=== PATIENT | female | born 1945 | race Caucasian/White ===

== ENCOUNTER 2018-06-03 09:00 | Day surgery (SDC) | payer MEDICARE, OTHER ==
[~2018-06-03 09:00] MED LIST: ALEN10 PO; ALEN70 PO; ALLO100; ALLO100 PO; ANAS1 PO; ANASTROZOLE; ASCO250CH PO; ASPI325; ASPI81CH PO; ATEN25 PO; ATEN50; CEFP50SU PO; CHOL10002 PO; CODACE30; CODACE30 PO; COLLAGEN C; DIAZ2 PO; DILT180; DILT180ER PO; DILT30 PO; DOCU100 PO; FERR325 PO; FISH1000 PO; FURO20 PO; FURO40; GEMF600 PO; GUAI200 PO; HYOS.125; HYOS.125 SL; LISI5 PO; MECL12.5 PO; METCAR500 PO; METO100 PO; METO5; METR500 PO; MONT10T PO; MONT4 PO; MORP15ER PO; MORP30ER PO; MORPHINE; MULVITMIND PO; OMEP10ER PO; OMEP20ER; OMEP20ER PO; ONDA4ODT MM; OXYC1L PO; OXYC5; PIRO10; POLY17UD PO; POTCHL10ER PO; POTCHL20ER; PSEU120ER PO; SENN187 PO; SPIR25 PO; Vitamin C100 M1 PO; [UNRECOGNIZED DRUG - OTHER]; [UNRECOGNIZED DRUG - REMARK]
== END 2018-06-03 10:55 | disposition home or self-care (01) ==
LOC: ORSCSDS 09:00
PROVIDERS: Ophthalmology
PROC: 08RK3JZ Replacement of Left Lens with Synthetic Substitute, Percutaneous Approach (ICD-10-PCS; principal; 2018-06-03 10:30)
DX: H25.12 Age-related nuclear cataract, left eye (principal); J44.9 Chronic obstructive pulmonary disease, unspecified; I10 Essential (primary) hypertension; I25.2 Old myocardial infarction; I25.10 Atherosclerotic heart disease of native coronary artery without angina pectoris; Z79.82 Long term (current) use of aspirin; Z79.899 Other long term (current) drug therapy; Z87.891 Personal history of nicotine dependence
CPT/HCPCS: J2250; J3010; J3301; J7040; V2632

== ENCOUNTER 2019-05-15 21:29 | Inpatient (IN) | payer MEDICARE, OTHER ==
[~2019-05-15] VITALS: Ht 152.4 cm; Wt 58.7 kg
[~2019-05-15 21:29] MED LIST changes: +ALBU3IS NEB; +ALBU90OI INH; +ANASTRAZOLE PO; +ATOR10 PO; +Aspirin EC81 MG PO; +BUDE6HFA INH; +CYAN500 PO; +Calcium 250+D1 EACH PO; +DIAZ10 PO; +DIPH50 PO; +Dentagel56 GM DT; +FISH OIL 1,0001 EAC1 PO; +FURO40 PO; +GABA100 PO; +GUAI600T33 PO; +Hair, Skin & N1 EACH PO; +LANOXIN62.5 MCG PO; +Lisinopril2.5 MG PO; +MAGOXI400 PO; +METO50 PO; +NORT25 PO; +Omeprazole20 M1 PO; +PYRI100 PO; +Primalev 5-3001 EACH PO; +TIOT18 INH; +VITAMIN D-32000 UNIT PO; +Zantac150 MG PO; +Zofran4 MG PO; +[UNRECOGNIZED DRUG - OTHER] TOP
[2019-05-15] MEDS ORDERED: Bumetanide2 MG PO (21:56)
[2019-05-15] MEDS ORDERED: BASAGLAR K100 UNIT/1 SC (21:59)
[2019-05-15] MEDS ORDERED: METCAR500 PO (22:00)
[2019-05-15] MEDS ORDERED: METF500C PO (22:00)
[2019-05-15] MEDS ORDERED: MORP30ER PO (22:01)
[2019-05-15] MEDS ORDERED: NARCAN4 MG (22:02)
[2019-05-15] MEDS ORDERED: NAPR500 PO (22:03)
[2019-05-15] MEDS ORDERED: STRIVERDI RESPIM4 GM INH (22:03)
[2019-05-15] MEDS ORDERED: OXYC5 PO (22:04)
[2019-05-15] MEDS ORDERED: ROPI.25 PO (22:06)
[2019-05-15 23:44] LABS: Digoxin (Lanoxin) 0.77 ug/mL (0.80-2.00)
[2019-05-16 05:21] LABS: Hematocrit 40.2 % (33.0-51.0); Hemoglobin 13.5 g/dL (11.5-16.0); Mean Corpuscular HGB 31.9 pg (26.0-34.0); Mean Corpuscular HGB Conc 33.6 g/dL (31.5-36.5); Mean Corpuscular Volume 95 fL (80-100); Mean Platelet Volume 10.8 fL (9.1-12.4); Platelet Count 230 K/mm3 (150-400); RDW Standard Deviation 45.4 fL (35.1-46.3); Red Blood Cell Count 4.23 M/mm3 (3.80-5.20); White Blood Cell Count 15.51 K/mm3 (4.00-11.30)
--- NOTE | 2019-05-16 05:29 | NUR ---
SHIFT SUMMARY NEW ADMIT THIS AM. AAOX4/NPO. DISCOMFORT CONTROLLED WITH 1MG IV DILAUDID Q2-3P. NAUSEA CONTROLLED WITH ZOFRAN X1 SINCE ADMISSION TO FLOOR, NO EMESIS. PT SBA UP TO RESTROOM. IVF PER ORDERS. SURGICAL CONSULT CALLED THIS AM. PT RESTING INTERMITTENTLY, NADN, CALL LIGHT IN REACH.
[2019-05-16 05:46] LABS: Alanine Aminotransfer (ALT/SGP 39 U/L (12-78); Albumin, Blood 3.1 g/dL (3.4-5.0); Albumin/Globulin Ratio 0.9 (0.8-1.8); Alk Phos 91 U/L (50-136); Anion Gap 5 mmol/L (6-16); Aspartate Aminotrans (AST/SGOT 20 U/L (12-37); Bilirubin, Total 0.8 mg/dL (0.1-1.0); Blood Urea Nitrogen 11 mg/dL (8-24); Bun/Creatinine Ratio 15.6 (12.0-20.0); CO2, Blood 30 mmol/L (21-32); Calcium, Blood 7.8 mg/dL (8.5-10.1); Chloride, Blood 104 mmol/L (98-108); Globulin, Blood 3.3 g/dL (2.2-4.0); Glomerular Filtration Rate >60 (60-); Glucose, Blood 113 mg/dL (70-99); Potassium, Blood 3.3 mmol/L (3.5-5.5); Sodium, Blood 139 mmol/L (136-145); Total Protein, Blood 6.4 g/dL (6.4-8.2)
--- NOTE | 2019-05-16 15:14 | NUR ---
PT TO DAY SURGERY AT THIS TIME
--- NOTE | 2019-05-16 18:03 | NUR ---
1800 FLAGYL ANTIBIOTIC SENT TO OR AT THIS TIME.
[2019-05-17 04:13] LABS: BASOPHILS ABSOLUTE AUTO 0.03 K/mm3 (0.00-0.23); BASOPHILS PERCENT AUTO 0 % (0-2); EOSINOPHILS PERCENT AUTO 0 % (0-6); Hematocrit 35.5 % (33.0-51.0); Hemoglobin 11.8 g/dL (11.5-16.0); IMMATURE GRAN ABSOLUTE AUTO 0.19 K/mm3 (0.00-0.10); IMMATURE GRAN PERCENT AUTO 1 % (0-1); LYMPHOCYTES ABSOLUTE AUTO 1.24 K/mm3 (0.84-5.20); LYMPHOCYTES PERCENT AUTO 6 % (21-46); MONOCYTES ABSOLUTE AUTO 1.51 K/mm3 (0.16-1.47); MONOCYTES PERCENT AUTO 7 % (4-13); Mean Corpuscular HGB 32.4 pg (26.0-34.0); Mean Corpuscular HGB Conc 33.2 g/dL (31.5-36.5); Mean Platelet Volume 10.6 fL (9.1-12.4); NEUTROPHILS PERCENT AUTO 86 % (41-73); Platelet Count 224 K/mm3 (150-400); RDW Coefficient Variation 13.2 % (11.7-14.2); RDW Standard Deviation 47.2 fL (35.1-46.3); Red Blood Cell Count 3.64 M/mm3 (3.80-5.20); White Blood Cell Count 21.17 K/mm3 (4.00-11.30)
[2019-05-17 04:14] LABS: Mean Corpuscular Volume 98 fL (80-100)
[2019-05-17 04:38] LABS: Alanine Aminotransfer (ALT/SGP 25 U/L (12-78); Albumin, Blood 2.2 g/dL (3.4-5.0); Albumin/Globulin Ratio 0.7 (0.8-1.8); Alk Phos 71 U/L (50-136); Anion Gap 7 mmol/L (6-16); Aspartate Aminotrans (AST/SGOT 17 U/L (12-37); Bilirubin, Total 0.3 mg/dL (0.1-1.0); Blood Urea Nitrogen 7 mg/dL (8-24); Bun/Creatinine Ratio 10.2 (12.0-20.0); CO2, Blood 28 mmol/L (21-32); Calcium, Blood 7.3 mg/dL (8.5-10.1); Chloride, Blood 108 mmol/L (98-108); Creatinine, Blood 0.69 mg/dL (0.40-1.00); Globulin, Blood 3.1 g/dL (2.2-4.0); Glomerular Filtration Rate >60 (60-); Glucose, Blood 193 mg/dL (70-99); Magnesium, Blood 2.1 mg/dL (1.6-2.4); Potassium, Blood 3.8 mmol/L (3.5-5.5); Sodium, Blood 143 mmol/L (136-145); Total Protein, Blood 5.3 g/dL (6.4-8.2)
--- NOTE | 2019-05-17 05:52 | NUR ---
SHIFT SUMMARY PT A&O X4 T/O SHIFT. PT TO ROOM FROM RECOVERY IN ICU APPROX. 2145. PT AT BEDSIDE UNTIL PT SETTELED. POD#1 APPENDECTOMY; ABD SOFT; BT X4; MARCO DRAIN DRAINED 80ML OVER SHIFT. CHRONIC AND ACUTE PAIN MANAGED PER EMAR. PT C/O NAUSEA, TX PER EMAR, NO EMESIS. 4L O2 VIA NC. VSS; NO ACUTE CHANGES. BLOOD GLUCOSE MANAGED PER ORDERS; PT DECLINED INSULIN. IV GTT PER EMAR. FOELY DRAINING WELL. ORAL SWABS AT BEDSIDE. CALL LIGHT IN REACH; PT DEMONSTRATES USE. WCTM UNTIL REPORT TO DAY SHIFT RN.
--- NOTE | 2019-05-17 18:36 | NUR ---
SUMMARY: PT IS POD1 OPEN APPY. NO ACUTE CHANGE TODAY, PT HAS BEEN SLEEPING ON AND OFF. AND IS WEAK WHEN TURNING. ABLE TO DANGLE AND STAND TONIGHT WITH 1 ASSIST. VSS, ABLE TO WEAN O2 TO 2L, WILL MONITOR. PT ADVANCED TO CLEAR LIQ DIET, HAS TAKEN IN SMALL AMOUNTS OF WATER AND JELLO TODAY, HAS DENIED N/V. 80ML EMPTIED FROM MARCO DRAIN, RANDLE DRAINING. PT GIVEN OXYCODON AND DILAUDID FOR ABD PAIN, SEE EMAR. SURGICAL SITES WNL. PT AT BEDSIDE, WILL CTM AND REPORT TO NOC ISAAC.
--- NOTE | 2019-05-17 19:08 | NUR ---
REASSESSMENT OF PT HR AND SPO2 AT 1852. 95% ON 2L, BP 123/57, HR 126. PT IS RESTING QUIETLY. DR. AMES MADE AWARE OF PT HR. ORDER TO GIVE 2100 DOSE OF 50MG METOPROLOL NOW. STAT CBC AND EKG ALSO ORDERED. PT IS A/O, ASYMPTOMATIC. METOPROLOL GIVEN AND LAB IN ROOM TO DRAW AT 1859. Corey BARONE RN TO OBTAIN EKG. WILL PASS THIS INFO ON TO DASH OSCAR RN.
[2019-05-17 19:13] LABS: BASOPHILS ABSOLUTE AUTO 0.05 K/mm3 (0.00-0.23); BASOPHILS PERCENT AUTO 0 % (0-2); EOSINOPHILS ABSOLUTE AUTO 0.04 K/mm3 (0.00-0.68); EOSINOPHILS PERCENT AUTO 0 % (0-6); Hematocrit 34.9 % (33.0-51.0); Hemoglobin 11.5 g/dL (11.5-16.0); IMMATURE GRAN ABSOLUTE AUTO 0.16 K/mm3 (0.00-0.10); IMMATURE GRAN PERCENT AUTO 1 % (0-1); LYMPHOCYTES ABSOLUTE AUTO 1.47 K/mm3 (0.84-5.20); LYMPHOCYTES PERCENT AUTO 9 % (21-46); MONOCYTES ABSOLUTE AUTO 1.68 K/mm3 (0.16-1.47); MONOCYTES PERCENT AUTO 10 % (4-13); Mean Corpuscular HGB 32.4 pg (26.0-34.0); Mean Corpuscular Volume 98 fL (80-100); Mean Platelet Volume 10.5 fL (9.1-12.4); NEUTROPHILS ABSOLUTE AUTO 13.28 K/mm3 (1.96-9.15); NEUTROPHILS PERCENT AUTO 80 % (41-73); Platelet Count 217 K/mm3 (150-400); RDW Coefficient Variation 13.4 % (11.7-14.2); RDW Standard Deviation 48.3 fL (35.1-46.3); Red Blood Cell Count 3.55 M/mm3 (3.80-5.20); White Blood Cell Count 16.68 K/mm3 (4.00-11.30)
[2019-05-18 04:33] LABS: BASOPHILS ABSOLUTE AUTO 0.04 K/mm3 (0.00-0.23); BASOPHILS PERCENT AUTO 0 % (0-2); EOSINOPHILS ABSOLUTE AUTO 0.06 K/mm3 (0.00-0.68); EOSINOPHILS PERCENT AUTO 0 % (0-6); Hematocrit 33.4 % (33.0-51.0); IMMATURE GRAN ABSOLUTE AUTO 0.12 K/mm3 (0.00-0.10); IMMATURE GRAN PERCENT AUTO 1 % (0-1); LYMPHOCYTES ABSOLUTE AUTO 2.14 K/mm3 (0.84-5.20); LYMPHOCYTES PERCENT AUTO 14 % (21-46); MONOCYTES ABSOLUTE AUTO 1.48 K/mm3 (0.16-1.47); MONOCYTES PERCENT AUTO 10 % (4-13); Mean Corpuscular HGB 32.2 pg (26.0-34.0); Mean Corpuscular HGB Conc 32.9 g/dL (31.5-36.5); Mean Corpuscular Volume 98 fL (80-100); Mean Platelet Volume 10.6 fL (9.1-12.4); NEUTROPHILS ABSOLUTE AUTO 11.04 K/mm3 (1.96-9.15); NEUTROPHILS PERCENT AUTO 74 % (41-73); Platelet Count 220 K/mm3 (150-400); RDW Coefficient Variation 13.3 % (11.7-14.2); RDW Standard Deviation 47.8 fL (35.1-46.3); Red Blood Cell Count 3.42 M/mm3 (3.80-5.20); White Blood Cell Count 14.88 K/mm3 (4.00-11.30)
[2019-05-18 04:54] LABS: Alanine Aminotransfer (ALT/SGP 24 U/L (12-78); Albumin, Blood 2.1 g/dL (3.4-5.0); Albumin/Globulin Ratio 0.7 (0.8-1.8); Alk Phos 73 U/L (50-136); Anion Gap 3 mmol/L (6-16); Aspartate Aminotrans (AST/SGOT 14 U/L (12-37); Bilirubin, Total 0.5 mg/dL (0.1-1.0); Blood Urea Nitrogen 7 mg/dL (8-24); Bun/Creatinine Ratio 10.6 (12.0-20.0); CO2, Blood 28 mmol/L (21-32); Calcium, Blood 7.3 mg/dL (8.5-10.1); Chloride, Blood 109 mmol/L (98-108); Creatinine, Blood 0.66 mg/dL (0.40-1.00); Globulin, Blood 3.2 g/dL (2.2-4.0); Glomerular Filtration Rate >60 (60-); Glucose, Blood 109 mg/dL (70-99); Potassium, Blood 3.6 mmol/L (3.5-5.5); Sodium, Blood 140 mmol/L (136-145); Total Protein, Blood 5.3 g/dL (6.4-8.2)
--- NOTE | 2019-05-18 05:56 | NUR ---
SHIFT SUMMARY PT A&O X4 T/O SHIFT. POD#2 OPEN/LAP APPENDECTOMY; ABD SOFT; FEW BT X4; PT DENIES FLATUS. LAP SITES CDI; PREVENA WOUND VAC TO RLQ DRESSING AND SEAL INTACT. ABD MARCO DRAIN BULB COMPRESSED WITH SEAL HOLDING, DRESSING AROUND DRAIN REINFORCED D/T DRAINAGE. ACUTE AND CHRONIC PAIN MANAGED PER EMAR. OCC NAUSEA MANAGED PER EMAR. RANDLE DRAINING WELL. 2L O2 VIA NC. VSS; NO ACUTE CHANGES. CALL LIGHT IN REACH; PT DEMONSTRATES USE. WCTM UNTIL REPORT TO DAY SHIFT RN.
--- NOTE | 2019-05-18 12:46 | NUR ---
PT MEDICATED WITH ZOFRAN AND DILAUDID. FLAGYL STARTED PER EMAR. CALL LIGHT IN REACH.
--- NOTE | 2019-05-18 14:49 | NUR ---
DRESSING TO LLQ CHANGED. MULT SATURATED 4X4S REMOVED. NEW GAUZE AND MEDIPORE TAPE PLACED. PT SITTING UP IN CHAIR PLAYING SOLITAIRE,
--- NOTE | 2019-05-18 18:29 | NUR ---
SUMMARY: PT IS POD2 OPEN APPY. NO ACUTE CHANGE TODAY. PT REPORTS FEELING BETTER. ABLE TO AMBULATE IN ROOM AND SIT UP IN CHAIR FOR MEALS, PT IS DECONDITIONED AND WEAK, HAS CHRONIC PAIN. TOLERATING CLEAR LIQ DIET, SOME INTERMITTANT NAUSEA, NO EMESIS. 45ML DRAINED FROM MARCO DRAIN, DRESSING AT MARCO SITE CHANGED. RANDLE DC'D AT ABOUT 1300, PT VOIDED WITH BLADDER SCAN RESIDUAL OF 15ML. WILL MONITOR. SURGICAL SITES WNL. PT DENIES PASSING GAS, BOWEL TONES ASCULTATED. PT MEDICATED FOR PAIN PER EMAR.. NO ACUTE SAFETY CONCERNS AT THIS TIME.
[2019-05-19 04:34] LABS: BASOPHILS ABSOLUTE AUTO 0.05 K/mm3 (0.00-0.23); BASOPHILS PERCENT AUTO 0 % (0-2); EOSINOPHILS ABSOLUTE AUTO 0.48 K/mm3 (0.00-0.68); EOSINOPHILS PERCENT AUTO 4 % (0-6); Hematocrit 32.5 % (33.0-51.0); Hemoglobin 10.5 g/dL (11.5-16.0); IMMATURE GRAN PERCENT AUTO 2 % (0-1); LYMPHOCYTES ABSOLUTE AUTO 1.93 K/mm3 (0.84-5.20); LYMPHOCYTES PERCENT AUTO 17 % (21-46); MONOCYTES ABSOLUTE AUTO 1.32 K/mm3 (0.16-1.47); MONOCYTES PERCENT AUTO 12 % (4-13); Mean Corpuscular HGB 31.3 pg (26.0-34.0); Mean Corpuscular HGB Conc 32.3 g/dL (31.5-36.5); Mean Corpuscular Volume 97 fL (80-100); Mean Platelet Volume 10.7 fL (9.1-12.4); NEUTROPHILS ABSOLUTE AUTO 7.37 K/mm3 (1.96-9.15); NEUTROPHILS PERCENT AUTO 65 % (41-73); Platelet Count 226 K/mm3 (150-400); RDW Standard Deviation 46.1 fL (35.1-46.3); Red Blood Cell Count 3.35 M/mm3 (3.80-5.20); White Blood Cell Count 11.35 K/mm3 (4.00-11.30)
[2019-05-19 05:03] LABS: Alanine Aminotransfer (ALT/SGP 18 U/L (12-78); Albumin/Globulin Ratio 0.6 (0.8-1.8); Alk Phos 71 U/L (50-136); Anion Gap 5 mmol/L (6-16); Aspartate Aminotrans (AST/SGOT 11 U/L (12-37); Bilirubin, Total 0.3 mg/dL (0.1-1.0); Blood Urea Nitrogen 7 mg/dL (8-24); Bun/Creatinine Ratio 10.7 (12.0-20.0); CO2, Blood 27 mmol/L (21-32); Calcium, Blood 7.6 mg/dL (8.5-10.1); Chloride, Blood 108 mmol/L (98-108); Creatinine, Blood 0.66 mg/dL (0.40-1.00); Globulin, Blood 3.1 g/dL (2.2-4.0); Glomerular Filtration Rate >60 (60-); Glucose, Blood 124 mg/dL (70-99); Potassium, Blood 3.4 mmol/L (3.5-5.5); Sodium, Blood 140 mmol/L (136-145); Total Protein, Blood 5.1 g/dL (6.4-8.2)
--- NOTE | 2019-05-19 06:33 | NUR ---
POD 3 S/P OPEN APPY. PT VSS T/O NIGHT; 2LO2 NC IN PLACE PER PT BASELINE. DRESSINGS CDI. MARCO PUTTING OUT LIGHT PINK SS DRNG. PAIN MGD PER EMAR. PT HAD NO C/O N/V, REP NO FLATUS YET. PT UP OOB W/FWW+SBA, BLANCA WELL. PT USING CALL LIGHT FOR ASSISTANCE, WILL CONT TO MONITOR UNTIL REP GIVEN TO ONCOMING RN.
--- NOTE | 2019-05-19 08:03 | NUR ---
pt sleeping wakes to verbal stimuli stated she is sleepy denies flatus no nausea at this time mild abd dist discussed with pt taking miralax along with am [facility] and [facility] mobilization
--- NOTE | 2019-05-19 09:05 | NUR ---
DR DEGROOT BY TO SEE PT
--- NOTE | 2019-05-19 11:44 | NUR ---
MEDS GIVEN PT REQ IV PAIN MEDS VS PO STATED PAIN IS 8/10 AFTER AMB IN HALLWAY ALSO REQ IV ZOFRAN FOR NAUSEA NO EMESIS
--- NOTE | 2019-05-19 13:14 | NUR ---
pt amb in [facility] emptied arnulfo and changed arnulfo dressing
--- NOTE | 2019-05-19 15:31 | NUR ---
power glide placed by internetworking technician pt germain well
--- NOTE | 2019-05-19 17:41 | NUR ---
PT SITTING UP IN CHAIR WATCHING A MOVIE WITH HER S/O EATING ICE CHIPS
--- NOTE | 2019-05-19 18:10 | NUR ---
pt back from her walk in the hallway still no flatus to small amts of cl diet
--- NOTE | 2019-05-20 06:49 | NUR ---
POD 5 S/P OPEN APPY. PT VSS T/O NIGHT, 2LNC IN [place] PER PT BASELINE. PAIN MGD PER EMAR W/REP RELIEF. PO INTAKE MINIMAL, PT HAD NO C/O N/V, REP NO FLATUS YET. DRESSINGS INTACT, PT DOES HAVE SMALL, RED OPEN AREA IN PANNUS FOLD BENEATH DRESSING, BACITRACIN OINTMENT PROVIDED PER PT REQ. MARCO PUTTING OUT LIGHT PINK SS DRNG. PT VOIDING URINE W/O DIFFICULTY. PT UP OOB W/FWW+SBA, BLANCA WELL, IS USING CALL LIGHT FOR ASSISTANCE, WILL CONT TO MONITOR UNTIL REP GIVEN TO ONCOMING RN.
[2019-05-20 10:20] LABS: BASOPHILS ABSOLUTE AUTO 0.06 K/mm3 (0.00-0.23); BASOPHILS PERCENT AUTO 1 % (0-2); EOSINOPHILS ABSOLUTE AUTO 0.55 K/mm3 (0.00-0.68); EOSINOPHILS PERCENT AUTO 5 % (0-6); Hematocrit 34.7 % (33.0-51.0); Hemoglobin 11.5 g/dL (11.5-16.0); IMMATURE GRAN ABSOLUTE AUTO 0.26 K/mm3 (0.00-0.10); IMMATURE GRAN PERCENT AUTO 2 % (0-1); LYMPHOCYTES ABSOLUTE AUTO 1.49 K/mm3 (0.84-5.20); LYMPHOCYTES PERCENT AUTO 14 % (21-46); MONOCYTES ABSOLUTE AUTO 1.06 K/mm3 (0.16-1.47); MONOCYTES PERCENT AUTO 10 % (4-13); Mean Corpuscular HGB 31.9 pg (26.0-34.0); Mean Corpuscular HGB Conc 33.1 g/dL (31.5-36.5); Mean Corpuscular Volume 96 fL (80-100); NEUTROPHILS ABSOLUTE AUTO 7.65 K/mm3 (1.96-9.15); NEUTROPHILS PERCENT AUTO 69 % (41-73); Platelet Count 331 K/mm3 (150-400); RDW Coefficient Variation 13.2 % (11.7-14.2); RDW Standard Deviation 46.7 fL (35.1-46.3); Red Blood Cell Count 3.61 M/mm3 (3.80-5.20); White Blood Cell Count 11.07 K/mm3 (4.00-11.30)
[2019-05-20 10:37] LABS: Anion Gap 5 mmol/L (6-16); Blood Urea Nitrogen 6 mg/dL (8-24); Bun/Creatinine Ratio 9.8 (12.0-20.0); CO2, Blood 28 mmol/L (21-32); Calcium, Blood 8.6 mg/dL (8.5-10.1); Chloride, Blood 109 mmol/L (98-108); Creatinine, Blood 0.61 mg/dL (0.40-1.00); Glomerular Filtration Rate >60 (60-); Glucose, Blood 147 mg/dL (70-99); Magnesium, Blood 2.2 mg/dL (1.6-2.4); Potassium, Blood 3.7 mmol/L (3.5-5.5); Sodium, Blood 142 mmol/L (136-145)
--- NOTE | 2019-05-20 19:39 | NUR ---
SHIFT SUMMARY PT A&OX4, VSS, 2LNC BASELINE. POWERGLIDE RUE FLUSHES AND DRAWS WELL; ABX INFUSED ORDERED PER EMAR. CBGS CNI. POD4 OPEN APPY, ABD MOD DISTENDED, DENIES FLATUS. PREVENA AND MARCO DRAIN WITH MIN SEROUS FLUID AT THIS TIME. PAIN MANAGED PER EMAR. LOW PO CLEAR LIQ INTAKE; N&V TX W/ZOFRAN 1X. AMB W/FWW & SBA TO BR AND HALLWAY SEVERAL TIMES TODAY. REPORT GIVEN TO EVELYN GRAY.
[2019-05-21 05:21] LABS: BASOPHILS ABSOLUTE AUTO 0.03 K/mm3 (0.00-0.23); BASOPHILS PERCENT AUTO 0 % (0-2); EOSINOPHILS ABSOLUTE AUTO 0.42 K/mm3 (0.00-0.68); EOSINOPHILS PERCENT AUTO 5 % (0-6); Hematocrit 29.7 % (33.0-51.0); Hemoglobin 9.9 g/dL (11.5-16.0); IMMATURE GRAN ABSOLUTE AUTO 0.22 K/mm3 (0.00-0.10); IMMATURE GRAN PERCENT AUTO 3 % (0-1); LYMPHOCYTES ABSOLUTE AUTO 1.66 K/mm3 (0.84-5.20); LYMPHOCYTES PERCENT AUTO 21 % (21-46); MONOCYTES ABSOLUTE AUTO 0.96 K/mm3 (0.16-1.47); MONOCYTES PERCENT AUTO 12 % (4-13); Mean Corpuscular HGB 31.9 pg (26.0-34.0); Mean Corpuscular HGB Conc 33.3 g/dL (31.5-36.5); Mean Corpuscular Volume 96 fL (80-100); Mean Platelet Volume 9.7 fL (9.1-12.4); NEUTROPHILS PERCENT AUTO 58 % (41-73); Platelet Count 269 K/mm3 (150-400); RDW Coefficient Variation 13.1 % (11.7-14.2); RDW Standard Deviation 45.1 fL (35.1-46.3); White Blood Cell Count 7.79 K/mm3 (4.00-11.30)
[2019-05-21 05:50] LABS: Alanine Aminotransfer (ALT/SGP 19 U/L (12-78); Albumin/Globulin Ratio 0.7 (0.8-1.8); Alk Phos 65 U/L (50-136); Anion Gap 6 mmol/L (6-16); Aspartate Aminotrans (AST/SGOT 17 U/L (12-37); Bilirubin, Total 0.3 mg/dL (0.1-1.0); Blood Urea Nitrogen 6 mg/dL (8-24); Bun/Creatinine Ratio 9.3 (12.0-20.0); CO2, Blood 27 mmol/L (21-32); Calcium, Blood 8.3 mg/dL (8.5-10.1); Chloride, Blood 110 mmol/L (98-108); Creatinine, Blood 0.65 mg/dL (0.40-1.00); Glomerular Filtration Rate >60 (60-); Glucose, Blood 110 mg/dL (70-99); Potassium, Blood 3.6 mmol/L (3.5-5.5); Sodium, Blood 143 mmol/L (136-145)
--- NOTE | 2019-05-21 06:13 | NUR ---
POD 5 S/P OPEN APPY. PT VSS T/O NIGHT. DRESSINGS CDI. MARCO DRESSING CHANGED X1 R/T SATURATION; DRAINING LIGHT PINK/STRAW YELLOW SS DRNG. ABD MORE FIRM/DISTENDED, PT HAD 1 EPISODE OF NAUSEA, NO EMESIS, NO FLATUS YET. PT REP FEELING MORE TIRED AND WORN OUT. PT USING CALL LIGHT FOR ASSISTANCE, WILL CONT TO MONITOR UNTIL REP GIVEN TO ONCOMING RN.
--- NOTE | 2019-05-21 17:29 | NUR ---
SHIFT SUMMARY PT A&OX3, VSS, 2L NC @ BASELINE, POD5 OPEN APPY W/PREVENA, DENIES FLATUS, MARCO LG SEROUS OUTPUT DRESSING CHANGED 2X TODAY. PAIN MANAGED PER EMAR. REP SOME NAUSEA, DENIES EMESIS, NOT BLANCA CL DIET; PPN WILL BE STARTED TODAY. AMB SBA W/FWW TO BRP AND HALLWAY, UP TO CHAIR T/O SHIFT. VOIDING WELL. POWERGLIDE RUE. CBG CNI. AT BEDSIDE. WCTM & TX PER EMAR UNTIL REPORT GIVEN TO ONCOMING NOC RN.
[2019-05-22 08:35] LABS: Magnesium, Blood 2.2 mg/dL (1.6-2.4); Phosphorus, Blood 4.2 mg/dL (2.5-4.9); Triglycerides 214 mg/dL (30-160)
--- NOTE | 2019-05-22 18:26 | NUR ---
SHIFT SUMMARY PAIN HAS BEEN MANAGED WITH PO PAIN MEDICATION THIS SHIFT. PT HAS WALKED FREQUENTLY IN THE HALLWAYS. PT DENIES PASSING FLATUS. HYPOACTIVE BOWEL SOUNDS. PT TOLERATING MINIMAL CLEAR LIQUIDS. PT HAS SOME NAUSEA, ESPECIALLY WHEN TALKING ABOUT FOOD OR WHEN TRAYS ARE BROUGHT TO THE ROOM. VSS. WILL MONITOR UNTIL REPORT TO ONCOMING RN.
[2019-05-23 07:12] LABS: Magnesium, Blood 2.5 mg/dL (1.6-2.4); Phosphorus, Blood 4.9 mg/dL (2.5-4.9)
--- NOTE | 2019-05-23 08:02 | NUR ---
SUMMARY PT UP IN HALLS WITH THIS AM. NO FLATUS REPORTED TO ME. ABD REMAINS DISTENDED.TOLERATING H2O PO.
--- NOTE | 2019-05-23 18:51 | NUR ---
SHIFT SUMMARY PAIN HAS BEEN MANAGED WITH PO PAIN MEDICATION THIS SHIFT. SHE HAS AMBLATED MULTIPLE TIMES IN THE HALWAYS TODAY. PT CONTINUES TO HAVE GOOD BOWEL SOUNDS ALL QUADRANTS. PT STILL DENIES PASSING FLATUS. SHE HAS HAD SOME ABDOMINAL CRAMPING THIS AFTERNOON. VSS. WILL MONITOR UNTIL REPORT TO ONCOMING RN.
--- NOTE | 2019-05-24 02:34 | NUR ---
PT AMBULATORY. NO REPORTED FLATUS YET. BTS TYMPANIC. DENIES NAUSEA. ABD CONT WITH DISTENTION. DAY RN REPORTED DRS NOT WANTING TO START PT ON REGLAN OR OTHER CHANGES AT THIS TIME.
--- NOTE | 2019-05-24 03:32 | NUR ---
ASSUMED CARE OF PT. PT BACK TO BED AFTER AMBULATING TO BR. DENIES ANY NEEDS.
--- NOTE | 2019-05-24 04:54 | NUR ---
POD 8 S/P APPENDECTOMY. PT STILL DENIES FLATUS. HAS BEEN UP AMBULATING IN ROOM DURING NIGHT. BT HAVE BEEN HYPERACTIVE. MARCO WITH MINIMAL DRAINAGE. CONT WITH CURRENTLY TREATMENT. CALL LIGHT IN REACH.
[2019-05-24 06:06] LABS: Anion Gap 6 mmol/L (6-16); Blood Urea Nitrogen 13 mg/dL (8-24); Bun/Creatinine Ratio 21.4 (12.0-20.0); CO2, Blood 29 mmol/L (21-32); Calcium, Blood 8.5 mg/dL (8.5-10.1); Chloride, Blood 105 mmol/L (98-108); Creatinine, Blood 0.61 mg/dL (0.40-1.00); Glomerular Filtration Rate >60 (60-); Glucose, Blood 142 mg/dL (70-99); Magnesium, Blood 2.5 mg/dL (1.6-2.4); Phosphorus, Blood 5.2 mg/dL (2.5-4.9); Potassium, Blood 4.2 mmol/L (3.5-5.5); Sodium, Blood 140 mmol/L (136-145)
--- NOTE | 2019-05-24 17:42 | NUR ---
SHIFT SUMMARY VSS. PREVENA WOUND VAC AND MARCO DC'D TODAY BY DR. HARRIS. PT UP AND AMBULATING HALLWAYS SBA WITH WALKER AND AT SIDE AND UP IN CHAIR MOST OF SHIFT. DIET ADVANCED TO FULL LIQ, BUT PT DID GET NAUSEATED AND DID NOT TOLERATE WELL. PPN STILL INFUSING PER ORDERS. PT DENIES NEED FOR PAIN MEDICATIONS. INCISIONS TO ABD ARE CDI. PT DENIES PASSING FLATUS, BUT REPORTS BURPING AND BTS ARE HYPERACTIVE. ABD SOFT. AT BEDSIDE FOR SUPPORT. PT USES CALL LIGHT APPROPRIATELY.
--- NOTE | 2019-05-25 07:51 | NUR ---
SUMMARY: VSS, AFEBRILE, 2L BASELINE O2 VIA NC. PT SHOWERED AND TOLERATED SMALL AMOUNTS OF CLEARS THIS SHIFT. PAIN WELL CONTROLLED WITH 5MG ROXICODONE AND MSCONTIN. PT BEGAN PASSING SIGNIFICANT AMOUNTS OF FLATUS AND ABD DISTENTION APPEARS DECREASED THIS MORNING. PT IN GOOD SPIRITS AND HOPEFUL OF DC SOON IF TOLERATING ADVANCED DIET.
[2019-05-25 09:57] LABS: Anion Gap 5 mmol/L (6-16); Blood Urea Nitrogen 13 mg/dL (8-24); Bun/Creatinine Ratio 22.3 (12.0-20.0); CO2, Blood 30 mmol/L (21-32); Calcium, Blood 9.2 mg/dL (8.5-10.1); Chloride, Blood 104 mmol/L (98-108); Creatinine, Blood 0.58 mg/dL (0.40-1.00); Glomerular Filtration Rate >60 (60-); Glucose, Blood 137 mg/dL (70-99); Magnesium, Blood 2.4 mg/dL (1.6-2.4); Potassium, Blood 4.1 mmol/L (3.5-5.5); Sodium, Blood 139 mmol/L (136-145)
[2019-05-25] MEDS ORDERED: MIRALAX17 GM PO (12:03)
[2019-05-25] MEDS ORDERED: Milk Of Ma400 MG/5 M PO (12:03)
[2019-05-25] MEDS ORDERED: OXYC5 PO (15:52)
--- NOTE | 2019-05-25 16:13 | NUR ---
DISCHARGE PT EDUCATED ON AND RECEIVED PRINTED DC INSTRUCTIONS AND VERB AN UNDERSTANDING. HARD RX FOR OXYCODONE GIVEN TO PT. PG IV DC'D. PT REPORTS SHE PREFERS TO CALL PCP TO SET UP F/U APPT. ALL PERSONAL BELONGINGS SENT HOME WITH PT AND PT WALKED OUT WITH AT SIDE.
== END 2019-05-25 16:12 | disposition home or self-care (01) | DRG 336 ==
LOC: ER 21:29 → SURS 21:30
PROVIDERS: Emergency Medicine; Internal Medicine; Surgery; ADMIT Internal Medicine
PROC: 0DNJ4ZZ Release Appendix, Percutaneous Endoscopic Approach (ICD-10-PCS; 2019-05-16)
PROC: 0WJG4ZZ Inspection of Peritoneal Cavity, Percutaneous Endoscopic Approach (ICD-10-PCS; 2019-05-16)
PROC: 0DTJ0ZZ Resection of Appendix, Open Approach (ICD-10-PCS; principal; 2019-05-16 15:30)
DX: K35.80 Unspecified acute appendicitis (principal); I13.0 Hypertensive heart and chronic kidney disease with heart failure and stage 1 through stage 4 chronic kidney disease, or unspecified chronic kidney disease; I50.32 Chronic diastolic (congestive) heart failure; K56.7 Ileus, unspecified; E10.22 Type 1 diabetes mellitus with diabetic chronic kidney disease; N18.1 Chronic kidney disease, stage 1; Z79.4 Long term (current) use of insulin; D64.9 Anemia, unspecified; I25.10 Atherosclerotic heart disease of native coronary artery without angina pectoris; J44.9 Chronic obstructive pulmonary disease, unspecified; Z99.81 Dependence on supplemental oxygen; E87.6 Hypokalemia
CPT/HCPCS: 36415; 71045; 80048; 80053; 80162; 82947; 83735; 83880; 84100; 84478; 85025; 85027; 88304; 93005; 93010; 94640; 94760; 96365; 96366; 96375; 96376; 99285-25; G0378; J0744; J1100; J1170; J1650; J1885; J2250; J2405; J2704; J3010; J3480; J7030; J7050; J7120

== ENCOUNTER 2022-04-13 15:34 | Emergency (ER) | payer MEDICARE ==
[~2022-04-13] VITALS: Ht 152.4 cm; Wt 56.7 kg
[~2022-04-13 15:34] MED LIST changes: +BASAGLAR K100 UNIT/1 SC; +Bumetanide2 MG PO; +METF500C PO; +MIRALAX17 GM PO; +Milk Of Ma400 MG/5 M PO; +NAPR500 PO; +NARCAN4 MG; +OXYC5 PO; +ROPI.25 PO; +STRIVERDI RESPIM4 GM INH
[2022-04-13 16:27] LABS: BASOPHILS ABSOLUTE AUTO 0.08 K/mm3 (0.00-0.23); BASOPHILS PERCENT AUTO 1 % (0-2); EOSINOPHILS ABSOLUTE AUTO 0.24 K/mm3 (0.00-0.68); EOSINOPHILS PERCENT AUTO 3 % (0-6); Hematocrit 41.6 % (33.0-51.0); Hemoglobin 13.8 g/dL (11.5-16.0); IMMATURE GRAN ABSOLUTE AUTO 0.34 K/mm3 (0.00-0.10); IMMATURE GRAN PERCENT AUTO 4 % (0-1); LYMPHOCYTES ABSOLUTE AUTO 2.49 K/mm3 (0.84-5.20); LYMPHOCYTES PERCENT AUTO 26 % (21-46); MONOCYTES ABSOLUTE AUTO 0.85 K/mm3 (0.16-1.47); MONOCYTES PERCENT AUTO 9 % (4-13); Mean Corpuscular HGB 31.4 pg (26.0-34.0); Mean Corpuscular HGB Conc 33.2 g/dL (31.5-36.5); Mean Corpuscular Volume 95 fL (80-100); Mean Platelet Volume 10.5 fL (9.1-12.4); NEUTROPHILS ABSOLUTE AUTO 5.77 K/mm3 (1.96-9.15); NEUTROPHILS PERCENT AUTO 59 % (41-73); Platelet Count 237 K/mm3 (150-400); RDW Coefficient Variation 12.9 % (11.7-14.2); RDW Standard Deviation 44.2 fL (35.1-46.3); White Blood Cell Count 9.77 K/mm3 (4.00-11.30)
[2022-04-13 16:45] LABS: Albumin, Blood 3.7 g/dL (3.4-5.0); Albumin/Globulin Ratio 1.1 (0.8-1.8); Bilirubin, Total 0.4 mg/dL (0.1-1.0); Bun/Creatinine Ratio 24.2 (12.0-20.0); Calcium, Blood 8.2 mg/dL (8.5-10.1); Creatinine, Blood 0.7 mg/dL (0.40-1.00); Globulin, Blood 3.4 g/dL (2.2-4.0); Potassium, Blood 4.3 mmol/L (3.5-5.5); Total Protein, Blood 7.1 g/dL (6.4-8.2)
[2022-04-13] MEDS ORDERED: BUME2 (16:53)
[2022-04-13] MEDS ORDERED: FAMO20 PO (16:54)
[2022-04-13] MEDS ORDERED: Robaxin750 MG PO (16:55)
[2022-04-13] MEDS ORDERED: LEVSOD25 PO (16:55)
[2022-04-13] MEDS ORDERED: TRAZ100 PO (16:58)
[2022-04-13] MEDS ORDERED: PREG50 PO (16:58)
[2022-04-13 17:31] LABS: Source, Urine Clean Catch
[2022-04-13 17:35] LABS: Appearance, Urine Clear (Clear); Bilirubin, Urine Neg (Neg); Blood, Urine Neg (Neg); Color, Urine Yellow (P-Yellow); Glucose Qualitative, Urine Neg (Neg); Ketones, Urine Neg (Neg); Leukocyte Esterase, Urine Neg (Neg); Nitrite, Urine Neg (Neg); Protein, Urine Neg (Neg); Urobilinogen, Urine NORM (Normal)
[2022-04-13] MEDS ORDERED: DICY20 PO (17:59)
== END 2022-04-13 18:48 | disposition home or self-care (01) ==
LOC: ER 15:34
PROVIDERS: Physician Assistant
DX: R10.84 Generalized abdominal pain (principal); R19.7 Diarrhea, unspecified; Z87.19 Personal history of other diseases of the digestive system; J44.9 Chronic obstructive pulmonary disease, unspecified; I25.10 Atherosclerotic heart disease of native coronary artery without angina pectoris; I50.32 Chronic diastolic (congestive) heart failure; E11.22 Type 2 diabetes mellitus with diabetic chronic kidney disease; N18.9 Chronic kidney disease, unspecified; Z87.891 Personal history of nicotine dependence; Z88.0 Allergy status to penicillin; Z88.8 Allergy status to other drugs, medicaments and biological substances; Z91.018 Allergy to other foods; Z79.82 Long term (current) use of aspirin; Z79.899 Other long term (current) drug therapy; Z79.4 Long term (current) use of insulin
CPT/HCPCS: 36415; 74177; 80053; 81003; 83690; 85025; A9270; Q9967

== ENCOUNTER 2023-02-13 07:23 | Day surgery (SDC) | payer OTHER ==
[~2023-02-13 07:23] MED LIST changes: +BUME2; +DICY20 PO; +FAMO20 PO; +LEVSOD25 PO; +PREG50 PO; +Robaxin750 MG PO; +TRAZ100 PO
== END 2023-02-13 22:43 | disposition home or self-care (01) ==
LOC: US 07:23 → CT 09:00 → US 22:43 → CT 02-18 09:00
DX: K80.20 Calculus of gallbladder without cholecystitis without obstruction (principal); R93.2 Abnormal findings on diagnostic imaging of liver and biliary tract; C50.512 Malignant neoplasm of lower-outer quadrant of left female breast; Z17.0 Estrogen receptor positive status [ER+]; Z88.0 Allergy status to penicillin; Z88.2 Allergy status to sulfonamides
CPT/HCPCS: 76700

== ENCOUNTER 2023-02-13 09:28 | Emergency (ER) | payer OTHER ==
[~2023-02-13] VITALS: Ht 162.6 cm; Wt 57.1 kg
[2023-02-13 10:06] LABS: BASOPHILS ABSOLUTE AUTO 0.08 K/mm3 (0.00-0.23); BASOPHILS PERCENT AUTO 1 % (0-2); EOSINOPHILS ABSOLUTE AUTO 0.22 K/mm3 (0.00-0.68); EOSINOPHILS PERCENT AUTO 3 % (0-6); Hematocrit 41.9 % (33.0-51.0); Hemoglobin 14.5 g/dL (11.5-16.0); IMMATURE GRAN ABSOLUTE AUTO 0.11 K/mm3 (0.00-0.10); IMMATURE GRAN PERCENT AUTO 1 % (0-1); LYMPHOCYTES ABSOLUTE AUTO 2.56 K/mm3 (0.84-5.20); LYMPHOCYTES PERCENT AUTO 30 % (21-46); MONOCYTES ABSOLUTE AUTO 0.72 K/mm3 (0.16-1.47); MONOCYTES PERCENT AUTO 8 % (4-13); Mean Corpuscular HGB 31.1 pg (26.0-34.0); Mean Corpuscular HGB Conc 34.6 g/dL (31.5-36.5); Mean Corpuscular Volume 90 fL (80-100); Mean Platelet Volume 11.2 fL (9.1-12.4); NEUTROPHILS ABSOLUTE AUTO 4.84 K/mm3 (1.96-9.15); NEUTROPHILS PERCENT AUTO 57 % (41-73); Platelet Count 228 K/mm3 (150-400); RDW Coefficient Variation 12.1 % (11.7-14.2); RDW Standard Deviation 39.7 fL (35.1-46.3); Red Blood Cell Count 4.66 M/mm3 (3.80-5.20); White Blood Cell Count 8.53 K/mm3 (4.00-11.30)
[2023-02-13 10:35] LABS: Bun/Creatinine Ratio 30.5 (12.0-20.0); Calcium, Blood 9.5 mg/dL (8.5-10.1); Creatinine, Blood 0.82 mg/dL (0.40-1.00); Potassium, Blood 4.1 mmol/L (3.5-5.5)
[2023-02-13 11:13] VITALS: BP 127/59
== END 2023-02-13 11:45 | disposition home or self-care (01) ==
LOC: ER 09:28
PROVIDERS: Emergency Medicine
DX: I49.9 Cardiac arrhythmia, unspecified (principal); Z88.0 Allergy status to penicillin; Z88.8 Allergy status to other drugs, medicaments and biological substances; Z88.1 Allergy status to other antibiotic agents; Z91.048 Other nonmedicinal substance allergy status; Z79.899 Other long term (current) drug therapy; Z79.82 Long term (current) use of aspirin; Z79.84 Long term (current) use of oral hypoglycemic drugs; J44.9 Chronic obstructive pulmonary disease, unspecified; I50.32 Chronic diastolic (congestive) heart failure; I25.10 Atherosclerotic heart disease of native coronary artery without angina pectoris; N18.9 Chronic kidney disease, unspecified; M10.9 Gout, unspecified; Z85.3 Personal history of malignant neoplasm of breast; M19.90 Unspecified osteoarthritis, unspecified site; Z87.891 Personal history of nicotine dependence
CPT/HCPCS: 80048; 85025; 93005; 93010; 99285-25

== ENCOUNTER 2023-02-19 22:16 | Emergency (ER) | payer OTHER ==
[~2023-02-19] VITALS: Ht 152.4 cm; Wt 57.1 kg
[2023-02-19 23:03] LABS: BASOPHILS ABSOLUTE AUTO 0.09 K/mm3 (0.00-0.23); BASOPHILS PERCENT AUTO 1 % (0-2); EOSINOPHILS ABSOLUTE AUTO 0.14 K/mm3 (0.00-0.68); EOSINOPHILS PERCENT AUTO 2 % (0-6); Hemoglobin 14.7 g/dL (11.5-16.0); IMMATURE GRAN ABSOLUTE AUTO 0.18 K/mm3 (0.00-0.10); IMMATURE GRAN PERCENT AUTO 2 % (0-1); LYMPHOCYTES ABSOLUTE AUTO 3.27 K/mm3 (0.84-5.20); LYMPHOCYTES PERCENT AUTO 37 % (21-46); MONOCYTES ABSOLUTE AUTO 0.74 K/mm3 (0.16-1.47); MONOCYTES PERCENT AUTO 8 % (4-13); Mean Corpuscular HGB 32.4 pg (26.0-34.0); Mean Corpuscular Volume 93 fL (80-100); NEUTROPHILS ABSOLUTE AUTO 4.44 K/mm3 (1.96-9.15); NEUTROPHILS PERCENT AUTO 50 % (41-73); Platelet Count 257 K/mm3 (150-400); RDW Coefficient Variation 12.1 % (11.7-14.2); RDW Standard Deviation 41.2 fL (35.1-46.3); Red Blood Cell Count 4.54 M/mm3 (3.80-5.20); White Blood Cell Count 8.86 K/mm3 (4.00-11.30)
[2023-02-20 00:20] LABS: Calcium, Blood 8.8 mg/dL (8.5-10.1); Creatinine, Blood 0.73 mg/dL (0.40-1.00); Magnesium, Blood 2.2 mg/dL (1.6-2.4); Potassium, Blood 4.4 mmol/L (3.5-5.5)
[2023-02-20 02:03] VITALS: BP 140/69
== END 2023-02-20 02:02 | disposition home or self-care (01) ==
LOC: ER 22:16
PROVIDERS: Student in an Organized Health Care Education/Training Program
DX: I48.91 Unspecified atrial fibrillation (principal); R07.9 Chest pain, unspecified; R42 Dizziness and giddiness; I50.32 Chronic diastolic (congestive) heart failure; N18.9 Chronic kidney disease, unspecified; J44.9 Chronic obstructive pulmonary disease, unspecified; I25.10 Atherosclerotic heart disease of native coronary artery without angina pectoris; Z88.0 Allergy status to penicillin; Z88.8 Allergy status to other drugs, medicaments and biological substances; Z88.1 Allergy status to other antibiotic agents; Z91.018 Allergy to other foods; Z91.09 Other allergy status, other than to drugs and biological substances; Z85.3 Personal history of malignant neoplasm of breast; Z79.899 Other long term (current) drug therapy; Z87.891 Personal history of nicotine dependence
CPT/HCPCS: 71045; 80048; 82947; 83735; 84484; 85025; 93005; 93010; 96374; 99285-25; A9270; J1815

== ENCOUNTER 2023-03-06 07:56 | Day surgery (SDC) | payer OTHER | END 2023-03-06 23:06 | disposition home or self-care (01) | LOC: CT 07:56 | DX: I25.84 Coronary atherosclerosis due to calcified coronary lesion (principal); R07.9 Chest pain, unspecified | CPT/HCPCS: 75571 ==

== ENCOUNTER 2023-03-15 19:08 | Emergency (ER) | payer OTHER ==
[~2023-03-15] VITALS: Ht 152.4 cm; Wt 56.7 kg
[2023-03-15 20:11] LABS: BASOPHILS ABSOLUTE AUTO 0.08 K/mm3 (0.00-0.23); BASOPHILS PERCENT AUTO 1 % (0-2); EOSINOPHILS ABSOLUTE AUTO 0.08 K/mm3 (0.00-0.68); EOSINOPHILS PERCENT AUTO 1 % (0-6); Hematocrit 43.2 % (33.0-51.0); Hemoglobin 14.8 g/dL (11.5-16.0); IMMATURE GRAN ABSOLUTE AUTO 0.14 K/mm3 (0.00-0.10); IMMATURE GRAN PERCENT AUTO 1 % (0-1); LYMPHOCYTES ABSOLUTE AUTO 2.07 K/mm3 (0.84-5.20); LYMPHOCYTES PERCENT AUTO 16 % (21-46); MONOCYTES ABSOLUTE AUTO 1.06 K/mm3 (0.16-1.47); MONOCYTES PERCENT AUTO 8 % (4-13); Mean Corpuscular HGB 31.8 pg (26.0-34.0); Mean Corpuscular HGB Conc 34.3 g/dL (31.5-36.5); Mean Corpuscular Volume 93 fL (80-100); Mean Platelet Volume 11.2 fL (9.1-12.4); NEUTROPHILS ABSOLUTE AUTO 9.38 K/mm3 (1.96-9.15); NEUTROPHILS PERCENT AUTO 73 % (41-73); Platelet Count 238 K/mm3 (150-400); RDW Coefficient Variation 12.2 % (11.7-14.2); RDW Standard Deviation 42.1 fL (35.1-46.3); Red Blood Cell Count 4.65 M/mm3 (3.80-5.20); White Blood Cell Count 12.81 K/mm3 (4.00-11.30)
[2023-03-15 20:41] LABS: Magnesium, Blood 2.2 mg/dL (1.6-2.4)
[2023-03-15 20:52] LABS: Albumin, Blood 3.3 g/dL (3.4-5.0); Albumin/Globulin Ratio 0.9 (0.8-1.8); Bilirubin, Total 0.4 mg/dL (0.1-1.0); Bun/Creatinine Ratio 36.3 (12.0-20.0); Calcium, Blood 8.2 mg/dL (8.5-10.1); Creatinine, Blood 0.69 mg/dL (0.40-1.00); Globulin, Blood 3.5 g/dL (2.2-4.0); Potassium, Blood 3.7 mmol/L (3.5-5.5); Total Protein, Blood 6.8 g/dL (6.4-8.2)
[2023-03-15] MEDS ORDERED: METO25 PO (22:52)
[2023-03-15 23:45] VITALS: BP 106/57
== END 2023-03-15 23:52 | disposition home or self-care (01) ==
LOC: ER 19:08
PROVIDERS: Student in an Organized Health Care Education/Training Program
DX: R07.89 Other chest pain (principal); R06.02 Shortness of breath; R00.2 Palpitations; I25.10 Atherosclerotic heart disease of native coronary artery without angina pectoris; I50.32 Chronic diastolic (congestive) heart failure; J44.9 Chronic obstructive pulmonary disease, unspecified; N18.9 Chronic kidney disease, unspecified; I48.0 Paroxysmal atrial fibrillation; Z85.3 Personal history of malignant neoplasm of breast; Z88.0 Allergy status to penicillin; Z88.8 Allergy status to other drugs, medicaments and biological substances; Z88.1 Allergy status to other antibiotic agents; Z91.018 Allergy to other foods; Z79.01 Long term (current) use of anticoagulants; Z79.899 Other long term (current) drug therapy
CPT/HCPCS: 71045; 80053; 83735; 84484; 85025; 93005; 93010; 96360; 99285-25; J7030

== ENCOUNTER 2023-04-10 06:18 | Day surgery (SDC) | payer OTHER ==
[2023-04-10] VITALS (7 sets, daily range): BP systolic 119–152; BP diastolic 59–111
[~2023-04-10] VITALS: Ht 152.4 cm; Wt 59.0 kg
[~2023-04-10 06:18] MED LIST changes: -BUME2; +BUME2 PO; +CALCIUM 250-D1 EAC1 PO; -Calcium 250+D1 EACH PO; +ELIQUIS5 M2 PO; +FLUT1DIS5 INH; +LORA10ER PO; +METO25 PO; +Metoprolol Succ25 MG PO
--- NOTE | 2023-04-10 10:57 | NUR ---
PT RETURNED TO RECOVERY ROOM IN RECLINER. LACW DPPM SITE SOFT NON-TENDER WITH NO HEMATOMA, NO BLEEDING AND INTACT DRESSING. PT DENIES CHEST PAIN. PT EATING BREAKFAST WITH PT'S IN ROOM. DR SMITH WAS IN TO SEE PT. CALL LIGHT IN REACH.
--- NOTE | 2023-04-10 11:41 | NUR ---
NO CHANGES TO LACW DPPM SITE. PT C/O LACW "SORENESS" SEE MAR.
[2023-04-10] MEDS ORDERED: KEFLEX PO (11:52)
--- NOTE | 2023-04-10 13:36 | NUR ---
DR SMITH IN ROOM TO SEE PT.
--- NOTE | 2023-04-10 14:27 | NUR ---
NO CHANGES TO LACW PACEMAKER SITE. ICE BAG HAS BEEN OVER LACW PACEMAKER SITE SINCE ARRIVAL BACK TO RECOVERY ROOM.
--- NOTE | 2023-04-10 14:52 | NUR ---
DISCHARGE INSTRUCTIONS REVIEWED ALL QUESTIONS ANSWERED. NO CHANGES TO [facility] PACEMAKER SITE.
--- NOTE | 2023-04-10 15:10 | NUR ---
Assumed care of patient. Report given by Memo GRAY. pacer site soft and nontender nohematoma, no bleeding. dressing D&I. ice pack in place
--- NOTE | 2023-04-10 15:15 | NUR ---
spoke to Dr Cervantes about seeing patient. He said that patient could be discharged now.
--- NOTE | 2023-04-10 15:52 | NUR ---
IV SITE DCED WITH CATHETER IN TACT. REVIEW OF DISCHARGE INSTRUCTIONS AND PRECAUTIONS. REVIEW OF USE FOR ARM SLING. SITE REMAINS STABLE. DRESSING D&I. PATIENT DISCHRGED VIA WHEEL CAHIR TO WAITING CAR. DRIVING.
== END 2023-04-10 14:40 | disposition home or self-care (01) ==
LOC: MHTC 06:18
DX: I49.5 Sick sinus syndrome (principal); I25.10 Atherosclerotic heart disease of native coronary artery without angina pectoris; I13.0 Hypertensive heart and chronic kidney disease with heart failure and stage 1 through stage 4 chronic kidney disease, or unspecified chronic kidney disease; N18.9 Chronic kidney disease, unspecified; E11.22 Type 2 diabetes mellitus with diabetic chronic kidney disease; I50.9 Heart failure, unspecified; J44.9 Chronic obstructive pulmonary disease, unspecified; I48.0 Paroxysmal atrial fibrillation; E78.5 Hyperlipidemia, unspecified; I07.1 Rheumatic tricuspid insufficiency; E03.9 Hypothyroidism, unspecified; K21.9 Gastro-esophageal reflux disease without esophagitis; E11.51 Type 2 diabetes mellitus with diabetic peripheral angiopathy without gangrene; Z88.0 Allergy status to penicillin; Z88.1 Allergy status to other antibiotic agents; Z88.8 Allergy status to other drugs, medicaments and biological substances; Z79.01 Long term (current) use of anticoagulants; Z79.890 Hormone replacement therapy; Z79.84 Long term (current) use of oral hypoglycemic drugs; Z79.899 Other long term (current) drug therapy
CPT/HCPCS: 33208; 71045; 76937; 82947; 99152; 99153; A9270; C1769; C1781; C1785; C1894; C1898; J1644; J2250; J3010; J3370; J7030; J7040

== ENCOUNTER 2023-06-09 13:01 | Emergency (ER) | payer OTHER, MEDICARE ==
[~2023-06-09] VITALS: Ht 154.9 cm; Wt 59.0 kg
[~2023-06-09 13:01] MED LIST changes: +KEFLEX PO
[2023-06-09 13:26] VITALS: BP 134/86
== END 2023-06-09 17:20 | disposition home or self-care (01) ==
LOC: ER 13:01
DX: M54.6 Pain in thoracic spine (principal); G89.29 Other chronic pain; R09.1 Pleurisy; J44.9 Chronic obstructive pulmonary disease, unspecified; I50.32 Chronic diastolic (congestive) heart failure; I25.10 Atherosclerotic heart disease of native coronary artery without angina pectoris; N18.9 Chronic kidney disease, unspecified; Z88.0 Allergy status to penicillin; Z88.8 Allergy status to other drugs, medicaments and biological substances; Z91.018 Allergy to other foods; Z79.890 Hormone replacement therapy; Z79.899 Other long term (current) drug therapy; Z87.891 Personal history of nicotine dependence
CPT/HCPCS: 71046; 93005; 93010; A9270; J1885

== ENCOUNTER 2023-06-29 23:14 | Inpatient (IN) | payer OTHER ==
[~2023-06-29] VITALS: Ht 157.5 cm; Wt 57.2 kg
[~2023-06-29 23:14] MED LIST changes: +POTA10T PO
[2023-06-29 23:54] LABS: PCO2 Arterial 82.3 mmHg (35-45); PO2 Arterial 64.3 mmHg (80-100); pH Blood Arterial 7.02 (7.35-7.45)
[2023-06-30] VITALS (68 sets, daily range): BP systolic 70–135; BP diastolic 50–94
[2023-06-30] LABS: Calcium, Ionized (POC) 1.27 mmol/L (1.10-1.46); Chloride (POC) 98 mmol/L (98-108); Creatinine (POC) 0.9 mg/dL (0.6-1.0); Glucose (ISTAT POC) 325 mg/dL (70-99); Hemoglobin (POC) 13.6 g/dL (12.0-16.0); Potassium (POC) 3.5 mmol/L (3.5-5.5); Sodium (POC) 132 mmol/L (135-148); Total CO2 (POC) 25 mmol/L (21-32)
[2023-06-30 00:09] LABS: Hematocrit 40.9 % (33.0-51.0); Hemoglobin 12.9 g/dL (11.5-16.0); Mean Corpuscular HGB 30.1 pg (26.0-34.0); Mean Corpuscular HGB Conc 31.5 g/dL (31.5-36.5); Mean Corpuscular Volume 95 fL (80-100); Mean Platelet Volume 10.8 fL (9.1-12.4); NRBC ABSOLUTE 0.17 K/mm3 (0.00-0.02); NRBC Auto 0.5 /100 WBC (0.0-0.2); Platelet Count 340 K/mm3 (150-400); RDW Coefficient Variation 14.7 % (11.7-14.2); RDW Standard Deviation 50.9 fL (35.1-46.3); Red Blood Cell Count 4.29 M/mm3 (3.80-5.20); White Blood Cell Count 31.27 K/mm3 (4.00-11.30)
[2023-06-30 00:21] LABS: Albumin, Blood 2.7 g/dL (3.4-5.0); Albumin/Globulin Ratio 0.8 (0.8-1.8); Bilirubin, Total 0.4 mg/dL (0.1-1.0); Bun/Creatinine Ratio 22.8 (12.0-20.0); Calcium, Blood 9.7 mg/dL (8.5-10.1); Creatinine, Blood 0.79 mg/dL (0.40-1.00); Globulin, Blood 3.6 g/dL (2.2-4.0); Magnesium, Blood 2.7 mg/dL (1.6-2.4); Potassium, Blood 3.9 mmol/L (3.5-5.5); Total Protein, Blood 6.3 g/dL (6.4-8.2)
[2023-06-30 00:25] LABS: Source, Urine Straight Cath
[2023-06-30 00:31] LABS: BAND PERCENT MAN 4 % (0-8); BASOPHILS ABSOLUTE MAN 0.31 K/mm3 (0.00-0.23); BASOPHILS PERCENT MAN 1 % (0-2); EOSINOPHILS PERCENT MAN 8 % (0-6); LYMPHOCYTES ABSOLUTE MAN 7.19 K/mm3 (0.84-5.20); LYMPHOCYTES PERCENT MAN 23 % (21-46); METAMYELOCYTE ABSOLUTE MAN 0.93 K/mm3 (0.00-0.00); METAMYELOCYTE PERCENT MAN 3 % (0-0); MONOCYTES ABSOLUTE MAN 2.81 K/mm3 (0.16-1.47); MONOCYTES PERCENT MAN 9 % (4-13); MYELOCYTE ABSOLUTE MAN 1.25 K/mm3 (0.00-0.00); MYELOCYTE PERCENT MAN 4 % (0-0); NEUTROPHILS ABSOLUTE MAN 16.26 K/mm3 (1.96-9.15); SEG NEUTROPHILS PERCENT MAN 48 % (41-73); TOTAL CELLS COUNTED 100
[2023-06-30 00:40] LABS: Bilirubin, Urine Neg (Neg); Blood, Urine 1+ (Neg); Glucose Qualitative, Urine 4+ (Neg); Ketones, Urine Neg (Neg); Leukocyte Esterase, Urine Neg (Neg); Nitrite, Urine Neg (Neg); Protein, Urine 3+ (Neg); Urobilinogen, Urine NORM (Normal)
[2023-06-30 00:47] LABS: Appearance, Urine Clear (Clear); Color, Urine Pale Yellow (P-Yellow)
[2023-06-30 00:49] LABS: Bacteria Rare /hpf; Red Blood Cells, Urine 0-2 /hpf (0-2); Squamous Epithelial Cells Rare /hpf (Few); White Blood Cells, Urine 0-2 /hpf (0-5)
[2023-06-30 01:21] LABS: PCO2 Arterial 52.5 mmHg (35-45)
[2023-06-30 01:22] LABS: PO2 Arterial 49.6 mmHg (80-100)
[2023-06-30 02:38] LABS: Adenovirus Not Detected (NOT DETECT); Coronavirus 229E Not Detected (NOT DETECT); Coronavirus HKU1 Not Detected (NOT DETECT); Coronavirus NL63 Not Detected (NOT DETECT); Coronavirus OC43 Not Detected (NOT DETECT)
[2023-06-30 02:39] LABS: Bordetella pertussis Not Detected (NOT DETECT); Chlamydophila pneumoniae Not Detected (NOT DETECT); Human Metapneumovirus Not Detected (NOT DETECT); Human Rhinovirus/Enterovirus Not Detected (NOT DETECT); Influenza A/2009-H1 Not Detected (NOT DETECT); Influenza A/H1 Not Detected (NOT DETECT); Influenza A/H3 Not Detected (NOT DETECT); Influenza B Not Detected (NOT DETECT); Mycoplasma pneumoniae Not Detected (NOT DETECT); Parainfluenza Virus 1 Not Detected (NOT DETECT); Parainfluenza Virus 2 Not Detected (NOT DETECT); Parainfluenza Virus 3 Not Detected (NOT DETECT); Parainfluenza Virus 4 Not Detected (NOT DETECT); Respiratory Syncytial Virus Not Detected (NOT DETECT); SARS-Cov-2 (COVID-19), BioFire Not Detected (NOT DETECT)
[2023-06-30 05:40] LABS: BASOPHILS ABSOLUTE AUTO 0.15 K/mm3 (0.00-0.23); BASOPHILS PERCENT AUTO 1 % (0-2); EOSINOPHILS ABSOLUTE AUTO 0.04 K/mm3 (0.00-0.68); EOSINOPHILS PERCENT AUTO 0 % (0-6); Hematocrit 35.6 % (33.0-51.0); Hemoglobin 11.9 g/dL (11.5-16.0); IMMATURE GRAN PERCENT AUTO 5 % (0-1); LYMPHOCYTES ABSOLUTE AUTO 1.01 K/mm3 (0.84-5.20); LYMPHOCYTES PERCENT AUTO 4 % (21-46); MONOCYTES ABSOLUTE AUTO 1.04 K/mm3 (0.16-1.47); MONOCYTES PERCENT AUTO 4 % (4-13); Mean Corpuscular HGB 30.4 pg (26.0-34.0); Mean Corpuscular HGB Conc 33.4 g/dL (31.5-36.5); Mean Corpuscular Volume 91 fL (80-100); NEUTROPHILS ABSOLUTE AUTO 23.31 K/mm3 (1.96-9.15); NEUTROPHILS PERCENT AUTO 87 % (41-73); NRBC ABSOLUTE 0.09 K/mm3 (0.00-0.02); NRBC Auto 0.3 /100 WBC (0.0-0.2); Platelet Count 322 K/mm3 (150-400); RDW Coefficient Variation 14.8 % (11.7-14.2); RDW Standard Deviation 49.6 fL (35.1-46.3); Red Blood Cell Count 3.92 M/mm3 (3.80-5.20); White Blood Cell Count 26.85 K/mm3 (4.00-11.30)
[2023-06-30 06:08] LABS: BAND PERCENT MAN 5 % (0-8); BASOPHILS PERCENT MAN 0 % (0-2); EOSINOPHILS ABSOLUTE MAN 0.26 K/mm3 (0.00-0.68); EOSINOPHILS PERCENT MAN 1 % (0-6); LYMPHOCYTES ABSOLUTE MAN 1.34 K/mm3 (0.84-5.20); LYMPHOCYTES PERCENT MAN 5 % (21-46); METAMYELOCYTE ABSOLUTE MAN 0.53 K/mm3 (0.00-0.00); METAMYELOCYTE PERCENT MAN 2 % (0-0); MONOCYTES ABSOLUTE MAN 0.53 K/mm3 (0.16-1.47); MONOCYTES PERCENT MAN 2 % (4-13); MYELOCYTE ABSOLUTE MAN 0.26 K/mm3 (0.00-0.00); MYELOCYTE PERCENT MAN 1 % (0-0); NEUTROPHILS ABSOLUTE MAN 23.89 K/mm3 (1.96-9.15); SEG NEUTROPHILS PERCENT MAN 84 % (41-73); TOTAL CELLS COUNTED 100
--- NOTE | 2023-06-30 06:40 | NUR ---
ADMIT PT ADMITTED TO ICU 09 FROM ER. ARRIVED VIA GURNEY WITH RT AND ER STAFF. TRANSFERED TO BED BY STAFF WITH SLIDER SHEET. PT OPENING EYES AND FOLLOWING INSTRUCTIONS. PT INTUBATED AND ON MECH VENT. CENTRAL LINE TO LEFT FEMORAL WITH LEVOPHED AT 8 MCQ AND PROPOFOL AT 10 MCQ. OG TO LIS. BILAT SOFT WRIST RESTRAINTS ON. REPORT TO ON COMING NURSE
[2023-06-30 07:07] LABS: Albumin, Blood 2.6 g/dL (3.4-5.0); Albumin/Globulin Ratio 0.7 (0.8-1.8); Bilirubin, Total 0.3 mg/dL (0.1-1.0); Calcium, Blood 9.4 mg/dL (8.5-10.1); Creatinine, Blood 0.86 mg/dL (0.40-1.00); Globulin, Blood 3.5 g/dL (2.2-4.0); Potassium, Blood 3.8 mmol/L (3.5-5.5); Total Protein, Blood 6.1 g/dL (6.4-8.2)
[2023-06-30 13:03] LABS: International Normalized Ratio 1.04; Prothrombin Time Results 10.9 Sec (9.7-11.5)
--- NOTE | 2023-06-30 18:45 | NUR ---
SHIFT SUMMARY: NO ACUTE CHANGES SINCE ASSUMPTION OF CARE AT APPROX 0700 THIS AM. THE PT REMAINS SEDATED W/ PROPOFOL, TITRATIONS IN FLOWSHEET W/ GOAL RASS 0 TO -2. PT IS ABLE TO AWAKEN TO VERBAL STIMULUS & FOLLOW DIRECTIONS W/O DIFFICULTY. DOES BECOME INCREASINGLY ANXIOUS W/ COMMUNICATION DIFFICULTY. VENT SETTINGS: AC/VC 22/350/10/55% W/ O2 SATS > 92% ON AVG. LARGE AMNTS PINK SPUTUM SUCTIONED THROUGH ETT, MORE THICK CONSISTENCY THIS AFTERNOON. MONITOR SHOWS SR W/ HR 80-90s. LEVOPHED CURRENTLY INFUSING FOR HYPOTENSION, CURRENTLY AT 2 MCG/MIN. THE PT HAD A PERIOD TODAY IN WHICH SHE CONVERTED INTO AFLUTTER W/ RVR, AMIO DRIP ORDERED PER DR VAN. THIS RN NOTED THAT THE PT CONVERTED BACK INTO SR DIRECTLY PRIOR TO BEGINNING AMIO BOLUS. PROVIDER CONTACTED & STS TO HOLD BOLUS/ DRIP, BEGIN IMMEDIATELY IF THE PT EXPERIENCES AFLUTTER W/ RVR AGAIN. BT HYPOACTIVE, NO BM THIS SHIFT. OGT IN PLACE TO LIS W/ SMALL AMNT BROWN OUTPUT NOTED IN TUBING. TEMP RANDLE PATENT/ DRAINING CLEAR YELLOW URINE W/ LARGE OUTPUT THIS SHIFT, DIURESIS PER EMAR. AFEBRILE. SKIN CONDITION OVERALL FRAGILE, ECCHYMOTIC, INTACT. Q2H REPOSITIONING TO MAINTAIN SKIN INTEGRITY. WILL CONTINUE TO MONITOR & REPORT OFF TO ONCOMING RN.
--- NOTE | 2023-06-30 20:49 | NUR ---
ASSUMED CARE ASSUMED CARE AT 1900. PT INTUBATED AND SEDATED. AC/VC 22/350/10/55%. PROPOFOL, LEVOPHED, AND HEPARIN GTT INFUSING. SEE FLOWSHEET FOR TITRATIONS. PT ALERT, AND ABLE TO FOLLOW COMMANDS. MAKING EYE CONTACT AND SHAKES HEAD TO YES/NO QUESTIONS. ANXIOUS WITH STIMULI AND COMMUNICATION. BED BATH DONE AND PT TURNED TO SIDE. PT GRIMACING, AND SHIFTING IN BED. PT NODDED HEAD TO BACK PAIN. MEDICATED PER EMAR. VSS. CL TO R GROIN OOZING AND MINIMAL BRUISING NOTED. NO S/S OF BLEEDING OR HEMATOMA. OGT TO LISVicente VELÁSQUEZEY PATENT AND DRAINING TO GRAVITY.
[2023-07-01] VITALS (94 sets, daily range): BP systolic 88–160; BP diastolic 51–106
[2023-07-01 00:24] LABS: Base Excess Venous 5.3 mmol/L; Bicarbonate Venous 28.4 mmol/L (24.0-30.0); PCO2 Venous 44.4 mmHg (38-42); pH Blood Venous 7.43 (7.34-7.37)
--- NOTE | 2023-07-01 01:45 | NUR ---
SELF EXTUBATION 2340- VENT ALARMED AND THIS RN AND ANOTHER RN INTO ROOM WITHIN ONE MINUTE. PT SITTING UP AND BENDING DOWN WITH ETT IN HAND WHILE RESTRAINED. ETT LAYING ON CHEST. PT COUGHING WITH SPUTUM IN MOUTH. PT SUCTIONED. RT CALLED AND INTO ROOM APPROX 2342. PT AWAKE ASKING "WHAT IS GOING ON? WHAT TIME IS IT?". PROPOFOL TURNED OFF. SPO2 DOWN TO 70'S. RT BAGGED PT. AUDIBLE WHEEZES. HOSP CALLED AND ORDER TO TRIAL BIPAP, CONTINUOUS AND PRN NEB, STAT VBG AND POST HOUR ABG. PT ANXIOUS, HR INCREASED, AND RR 30'S. FENTANYL AND ATIVAN GIVEN. PT ABLE TO CALM AND BREATHE SLOWER. BIPAP 18/10 FIO2 60%. SPO2 GREATER THAN 92%. HR 100'S. BP STABLE.
[2023-07-01 01:54] LABS: PO2 Arterial 70.7 mmHg (80-100); pH Blood Arterial 7.46 (7.35-7.45)
[2023-07-01 05:32] LABS: BASOPHILS ABSOLUTE AUTO 0.05 K/mm3 (0.00-0.23); BASOPHILS PERCENT AUTO 0 % (0-2); EOSINOPHILS ABSOLUTE AUTO 0.02 K/mm3 (0.00-0.68); EOSINOPHILS PERCENT AUTO 0 % (0-6); Hematocrit 32.2 % (33.0-51.0); Hemoglobin 10.6 g/dL (11.5-16.0); IMMATURE GRAN ABSOLUTE AUTO 0.19 K/mm3 (0.00-0.10); IMMATURE GRAN PERCENT AUTO 1 % (0-1); LYMPHOCYTES ABSOLUTE AUTO 1.52 K/mm3 (0.84-5.20); LYMPHOCYTES PERCENT AUTO 9 % (21-46); MONOCYTES PERCENT AUTO 10 % (4-13); Mean Corpuscular HGB 30.4 pg (26.0-34.0); Mean Corpuscular HGB Conc 32.9 g/dL (31.5-36.5); Mean Corpuscular Volume 92 fL (80-100); Mean Platelet Volume 11.1 fL (9.1-12.4); NEUTROPHILS ABSOLUTE AUTO 13.61 K/mm3 (1.96-9.15); NEUTROPHILS PERCENT AUTO 80 % (41-73); NRBC ABSOLUTE 0.02 K/mm3 (0.00-0.02); NRBC Auto 0.1 /100 WBC (0.0-0.2); Platelet Count 263 K/mm3 (150-400); RDW Coefficient Variation 14.9 % (11.7-14.2); RDW Standard Deviation 50.7 fL (35.1-46.3); Red Blood Cell Count 3.49 M/mm3 (3.80-5.20); White Blood Cell Count 17.09 K/mm3 (4.00-11.30)
--- NOTE | 2023-07-01 06:22 | NUR ---
SHIFT SUMMARY SEE PREVIOUS NOTES. APPROX 0400 PT TOOK BIPAP APART, PULLING AT LINES, AND VERY ANXIOUS. PT CONVERTED TO AFIB/AFLUTTTER RATE UP TO 170'S DURING THIS EVENT. RR 40'S. ATIVAN AND FENTANYL GIVEN. PT RESPONDS WELL WITH CLEAR AND CALM COMMUNICATION WHILE ANXIOUS. HOSP CALLED AND ORDER RECEIVED FOR PRECEDEX GTT. PULM CALLED AND UPDATED ON THE NIGHT EVENTS. AMIO BOLUS GIVEN AND GTT STARTED PER PULM. HR CURRENTLY 130'S, RR 20'S, SPO2 GREATER THEN 92%. RANDLE PATENT AND DRAINING TO GRAVITY.
[2023-07-01 06:29] LABS: Bun/Creatinine Ratio 27.6 (12.0-20.0); Calcium, Blood 8.5 mg/dL (8.5-10.1); Creatinine, Blood 0.76 mg/dL (0.40-1.00)
--- NOTE | 2023-07-01 07:50 | NUR ---
ASSUMED CARE / DR RANDOLPH: REPORT RECEIVED FROM ISAAC POTTER. ASSUMED CARE OF THIS PT AT APPROX 0700. ON ASSESSMENT, THE PT IS RESTING QUIETLY. SHE IS VERY ANXIOUS WHEN AWAKENED FOR CARE MEASURES TO BE COMPLETED & REQUESTS TO HOLD THIS RN's HAND UNTIL SHE IS ABLE TO FALL ASLEEP AGAIN. PRECEDEX INFUSING AT 0.5 MCG/KG/HR. SHE HAS GENERALIZED C/O DISCOMFORT PAIRED W/ CHRONIC BACK PAIN, PRN MEDS PER EMAR. LS DIM IN BASES, PT ON BIPAP W/ SETTINGS 18/10 & 55%, BACKUP RATE 16. O2 SATS > 92% ON AVG, PT REMAINS TACHYPNEIC & SOMEWHAT LABORED AT REST. MONITOR SHOWS SR W/ HR 70-90s, OCCASIONALLY CONVERTING INTO AFIB RVR, HR 130-150s. LEVOPHED INFUSING AT 1 MCG/MIN FOR HYPOTENSION - SEE FLOWSHEET FOR TITRATIONS. PT STS WANTING WATER, ORAL CARE COMPLETED & ASPIRATION RISKS DISCUSSED. NO OTHER GI COMPLAINTS. TEMP RANDLE PATENT/ DRAINING CLEAR, YELLOW URINE. SKIN CONDITION OVERALL ECCHYMOTIC, FRAGILE, INTACT. Q2H REPOSITIONING TO MAINTAIN SKIN INTEGRITY. PROVIDER AT BEDSIDE THIS AM TO EVAL PT. THIS RN HAS NO CONCERNS AT THIS TIME, NO CHANGES. WILL CONTINUE TO MONITOR & UPDATE NEEDED.
--- NOTE | 2023-07-01 09:30 | NUR ---
DR HUBBARD: PROVIDER AT BEDSIDE TO EVAL PT THIS AM. DISCUSSED EVENTS THAT OCCURED OVERNIGHT W/ SELF-EXTUBATION & INTERMITTENT AFIB RVR W/ AMIO DRIP STARTED. NO CHANGES TO POC AT THIS TIME.
--- NOTE | 2023-07-01 15:30 | NUR ---
UPDATE: THE PT HAS HAD C/O PAIN TO THE BRIDGE OF HER NOSE & REQUESTING A DIFFERENT BIPAP MASK BE PLACED. THIS RN HAS ATTEMPTED TO PLACE A FOAM DRESSING TO THE BRIDGE OF THE PT's NOSE W/ LITTLE RELIEF. RT VERENA, AT BEDSIDE W/ FULL FACE MASK TO TRIAL FOR PT. THE PT IS IMMEDIATELY ANXIOUS & UNABLE TO TOLERATE THE BRIEF TRANSITION BETWEEN MASKS W/ O2 SATS DROPPING TO THE 70s & RR INCREASED TO 40s. HR REMAINS SINUS BUT NOW TACHYCARDIC UP TO 160s. ATIVAN & FENTANYL GIVEN PER EMAR W/ SOME RELIEF. PRECEDEX TITRATED UP TO 0.5 MCG/KG/HR. OVER A PERIOD OF ABOUT 15 MINS, THE PT IS ABLE TO SLOWLY CALM. HR DECREASED TO 90s & RR NOW 20s. O2 SATS REMAIN STABLE AT 88-91%. SHE IS NOW TOLERATING THE FULL FACE MASK WELL & APPEARS COMFORTABLE AT REST.
--- NOTE | 2023-07-01 16:09 | NUR ---
Spiritual Care Visit. Pt. is sedated and on a Bipap and is mostly non-responsive. Spouse is at bedside and welcomes my visit and becomes the primary focus of my visit. Facilitate a life review and consider matters of olivia and belief. Listen with empathy, interest, and a calming presence. Spouse verbalized that he believes in healing. Prayed for Pt. with spouse. Spouse verbalized gratitude for the spiritual care visit and welcomed this dye tank tender to return.
[2023-07-01 18:50] LABS: PCO2 Arterial 41.1 mmHg (35-45); PO2 Arterial 53.1 mmHg (80-100); pH Blood Arterial 7.47 (7.35-7.45)
--- NOTE | 2023-07-01 19:32 | NUR ---
DR RANDOLPH / SHIFT SUMMARY: PROVIDER CALLED TO BEDSIDE BY BARREL CHARRER, BETO Sullivan THE PT HAS AGAIN EXPERIENCED AN EPISODE WHERE SHE BECAME INCREASINGLY ANXIOUS & IS UNABLE TO CALM. SHE HAS BEGUN TO GRAB AT STAFF MEMBERS & PULL BIPAP MASK OFF W/ O2 SATS DROPPING TO 80s. DURING THIS TIME, THE PT HAS CONVERTED INTO AFIB W/ RVR, HR 160-190s. RR INCREASED TO 40-50s & THE PT's LUNGS NOW SOUND WET ON AUSCULTATION. AFTER RECEIVING PRN MEDICATIONS, THE PT HAS SLOWLY BEGAN TO CALM, HOWEVER HER RR REMAINS INCREASED TO LOW 30s & WORK OF BREATHING IS INCREASED FROM BASELINE PRIOR TO THIS EVENT. AT THE TIME OF THE PROVIDER's ARRIVAL TO BEDSIDE, THE PT IS RESTING QUIETLY. HER WORK OF BREATHING REMAINS INCREASED BUT SHE IS OVERALL APPEARING MORE COMFORTABLE & ABLE TO ANSWER DR RANDOLPH's QUESTIONS. HE IS CONTEMPLATING REINTUBATING THIS PT HER EVENTS & OVERALL RESPIRATORY STATUS ARE WORSENING THIS EVENING, BUT HE WOULD LIKE A STAT ABG DRAWN. THE PT's HAS BEEN CONTACTED BY SANTOS PÉREZ RN, & IS NOW AT BEDSIDE WELL, HAVING A DISCUSSION W/ THE PROVIDER REGARDING THE POSSIBILITY OF INTUBATION. THE PT & HER VERBALIZE THAT THEY WOULD LIKE ALL MEASURES TAKEN TO PROLONG HER LIFE. AT THIS TIME, THE PROVIDER HAS NOT MADE A DECISION REGARDING INTUBATION, BUT HE HAS DISCONTINUED PRN MEDICATIONS FOR ANXIETY & PAIN SHE IS CURRENTLY DOING BETTER. THIS RN REQUESTS PRN ATIVAN ORDER FOR THE PT IF SHE AGAIN BECOMES ANXIOUS, NO NEW ORDERS AT THIS TIME. REPORT HAS BEEN GIVEN TO RYLAN & OWEN, [place] TO ASSUME CARE OF THIS PT.
--- NOTE | 2023-07-01 20:00 | NUR ---
AT BEGINNING OF SHIFT, WHILE RECEIVING REPORT FROM RAVI GRAY, PT WAS NOTED TO BE TACHYPNIC W/WORK OF BREATHING AND COMPLAINTS OF DYSPNEA. SHE WAS ON BIPAP AT THAT TIME. SHE WAS ALSO TACHYCARDIC,ANXIOUS, AND HYPERTENSIVE. DAYSHIFT CHARGE NURSE BETO GRAY NOTIFIED DR RANDOLPH OF PT CONDITION. MD ORDERED STAT EKG AND STATED HE WAS ON HIS WAY. ON ARRIVAL TO PT BEDSIDE DR RANDOLPH DECIDED TO INTUBATE. RT RIOS WAS PRESENT AND ASSISTED W/INTUBATION. PT RECEIVED 20MG OF ETOMIDATE, 100 MG SUCCINYLCHOLINE, AND 20MG OF PROPOFOL FOR INTUBATION PER MD DIRECTION. PT WAS INTUBATED W/7.5 ETT,22 TEETH AT 1925. INITIAL VENT SETTINGS ARE 22/360/100/5 AC/VC. PT IN LINE SUCTION NOTED TO BE BLOODY. PROPOFOL INFUSION WAS STARTED PER MD ORDER FOR SEDATION. PT WAS ALREADY ON AMIODARONE @ 0.5MG/HR, PRECEDEX @ 0.5, HEPARIN AT 20 UNITS AN HOUR. PT HAD LEVOPHED PRIOR BUT HAS BEEN ON SB. OG TUBE WAS PLACED AND CHEST XRAY OBTAINED TO COMFIRM ETT TUBE AND OG TUBE PLACEMENT. DR RANDOLPH READ WHILE ON UNIT AND VERIFIED CORRECT PLACEMENT. PT HAS A TEMP RANDLE INTACT PATENT AND DRAINING YELLOW URINE TO GRAVITY. PT WAS PRESENT DURING THIS TIME AND WAS UPDATED ON PT CONDITION BY DR RANDOLPH. PT IS CURRENTLY IN NO DISTRESS. WILL CONTINUE TO MONITOR.
[2023-07-01 20:49] LABS: PCO2 Arterial 40.7 mmHg (35-45); PO2 Arterial 60.2 mmHg (80-100); pH Blood Arterial 7.47 (7.35-7.45)
--- NOTE | 2023-07-01 21:20 | NUR ---
ABG RESULTS CALLED TO DR. RANDOLPH. ORDERS GIVEN. UPDATED HIM ON PT BEING FEBRILE AND AGITATED AT TIMES. ORDERS GIVEN, SEE EMAR. ORDERS GIVEN FOR REPEAT LABS AT 2300 AND POTASSIUM REPLACEMENT IF NEEDED. OG TUBE TO REMAIN CLAMPED, NOT TO ILWS PER MD.
[2023-07-02] VITALS (62 sets, daily range): BP systolic 78–129; BP diastolic 42–105
[2023-07-02 00:22] LABS: Bun/Creatinine Ratio 23.9 (12.0-20.0); Calcium, Blood 7.9 mg/dL (8.5-10.1); Creatinine, Blood 0.84 mg/dL (0.40-1.00); Potassium, Blood 3.3 mmol/L (3.5-5.5)
[2023-07-02 04:11] LABS: BASOPHILS ABSOLUTE AUTO 0.05 K/mm3 (0.00-0.23); BASOPHILS PERCENT AUTO 0 % (0-2); EOSINOPHILS ABSOLUTE AUTO 0.17 K/mm3 (0.00-0.68); EOSINOPHILS PERCENT AUTO 1 % (0-6); Hematocrit 31.3 % (33.0-51.0); IMMATURE GRAN ABSOLUTE AUTO 0.28 K/mm3 (0.00-0.10); IMMATURE GRAN PERCENT AUTO 2 % (0-1); LYMPHOCYTES ABSOLUTE AUTO 1.84 K/mm3 (0.84-5.20); LYMPHOCYTES PERCENT AUTO 14 % (21-46); MONOCYTES ABSOLUTE AUTO 1.32 K/mm3 (0.16-1.47); MONOCYTES PERCENT AUTO 10 % (4-13); Mean Corpuscular HGB 29.8 pg (26.0-34.0); Mean Corpuscular HGB Conc 31.9 g/dL (31.5-36.5); Mean Corpuscular Volume 93 fL (80-100); Mean Platelet Volume 10.4 fL (9.1-12.4); NEUTROPHILS ABSOLUTE AUTO 9.62 K/mm3 (1.96-9.15); NEUTROPHILS PERCENT AUTO 72 % (41-73); NRBC ABSOLUTE 0.04 K/mm3 (0.00-0.02); NRBC Auto 0.3 /100 WBC (0.0-0.2); Platelet Count 239 K/mm3 (150-400); RDW Coefficient Variation 15.3 % (11.7-14.2); RDW Standard Deviation 52.8 fL (35.1-46.3); Red Blood Cell Count 3.36 M/mm3 (3.80-5.20); White Blood Cell Count 13.28 K/mm3 (4.00-11.30)
[2023-07-02 04:42] LABS: Albumin, Blood 2.3 g/dL (3.4-5.0); Albumin/Globulin Ratio 0.7 (0.8-1.8); Bilirubin, Total 0.5 mg/dL (0.1-1.0); Bun/Creatinine Ratio 24.1 (12.0-20.0); Calcium, Blood 7.9 mg/dL (8.5-10.1); Creatinine, Blood 0.75 mg/dL (0.40-1.00); Globulin, Blood 3.5 g/dL (2.2-4.0); Magnesium, Blood 2.4 mg/dL (1.6-2.4); Phosphorus, Blood 1.7 mg/dL (2.5-4.9); Potassium, Blood 3.7 mmol/L (3.5-5.5); Total Protein, Blood 5.8 g/dL (6.4-8.2)
[2023-07-02 05:32] LABS: Base Excess Venous 2.5 mmol/L; Bicarbonate Venous 26.4 mmol/L (24.0-30.0); PCO2 Venous 44.1 mmHg (38-42)
--- NOTE | 2023-07-02 06:18 | NUR ---
SHIFT SUMMARY PT HR 80'S SR, BP INITIALLY HYPERTENSIVE AT BEGINNING OF SHIFT, SBP NOW 100'S, MAP >65. PT INTUBATED AND SEDATED, ETT TUBE IN PLACE, VENTILATOR SETTING AC/VC 16/360/100/5, OXYGEN SATURATION > 95%. PT HAS HAD MULTIPLE EPISODES OF AGGITATION THROUGHOUT THE SHIFT, MEDICATED PER EMAR. CENTRAL LINE TO LEFT FEM, PIV TO LEFT FOREARM. PROPOFOL INFUSING AT 40MCG/KG, HEPARIN INFUSING AT 23UNITS, PRECEDEX INFUSING AT 0.5MCG/KG. PT HAS TEMP RANDLE IN PLACE, PATENT, DRAINING TO GRAVITY.
--- NOTE | 2023-07-02 06:24 | NUR ---
PHYSICIAN NOTIFIED CALLED DR. TOMASA ALVAREZING V[facility], CURRENT LABS, AND AMIO MIMI. ORDERS RECEIVED.
--- NOTE | 2023-07-02 09:05 | NUR ---
ASSUMED CARE REPORT FROM NIRAV GRAY AT 0700. PT INTUBATED AND SEDATED. DR RANDOLPH AT BEDSIDE AT THIS TIME. VENT SETTINGS AC/VC+ 16/360/10/90%. LUNGS CLEAR. THIN RED SECRETIONS FROM ETT, MODERATE AMOUNT. COUGH/GAG REFLEX. PRECEDEX AND PROPOFOL GTT FOR SEDATION. PT VARIES FROM RASS -4 TO RASS +3 WHEN CARE PROVIDED. DOES NOT FOLLOW DIRECTIONS. NOT REDIRECTABLE. SR, RATE 80'S, INCREASES c AGITATION. BP STABLE. ABD ROUND, SOFT, NON TENDER. HYPOACTIVE BT. OGT CLAMPED. RANDLE PATENT, DRAINING CLEAR YELLOW URINE TO GRAVITY. STRICT I&O. DIURESING. CVC TO L FEM. SO AT BEDSIDE. WILL CONTINUE TO MONITOR.
[2023-07-02 09:37] LABS: Vancomycin, Trough 7.8 ug/mL (5.0-10.0)
--- NOTE | 2023-07-02 17:20 | NUR ---
SHIFT SUMMARY PT REMAINS INTUBATED AND SEDATED. VENT SETTINGS AC/VC+ 16/360/12/75%. LUNGS COARSE THROUGHOUT. SMALL AMOUNT OF THIN RED SECRETIONS FROM ETT. COUGH/GAG REFLEX. PROPOFOL AND PRECEDEX GTT FOR SEDATION. PRN FENTANYL FOR PAIN. RASS -4 WHEN UNDISTURBED, OCCASIONALLY GETS AGITATED, PEAK PRESSURES, DESATS, COUGHS, RASS +2. PT HAS HAD TWO EPISODES OF AFIB, CURRENTLY IN AFIB, RATE 100-120'S. AMIO GTT INFUSING. LEVO STARTED FOR MAP>65. OGT REMAINS CLAMPED. RANDLE PATENT, DRAINING CLEAR YELLOW URINE TO GRAVITY. WILL CONTINUE TO MONITOR UNTIL REPORT TO ONCOMING NURSE.
--- NOTE | 2023-07-02 19:36 | NUR ---
ASSUMPTION OF CARE REPORT RECEIVED FROM DAY SHIFT RN. PT RESTING IN BED. HR 60-70'S SR, AMIO INFUSING AT 0.5MG/HR, SBP 107, MAP 67. LEVOPHED INFUSING AT 2MCG/MIN. PT INTUBATED AND SEDATED ETT 7.5, 23 AT TEETH/GUMS. VENTILATOR SETTINGS AC/VC 16/360/60/12, OXYGEN SATURATION > 95%. PT COUGHING, SUCTIONED THROUGH ETT THIN BLOODY SECRETIONS NOTED. INCREASED WORK OF BREATHING, MEDICATED PER EMAR. PT REPOSITIONED AND ORAL CARE PERFORMED. RESPIRATORY RATE DECREASED AFTER ATIVAN WAS GIVEN. MEDICATAED WITH TYLENOL FOR A CORE TEMP OF 101.2. BILATERAL SOFT WRIST RESTRAINTS IN PLACE. RANDLE PATENT DRAINING YELLOW URINE TO GRAVITY. OG TUBE FLUSHED AND CLAMPED. CENTRAL LINE TO LEFT FEM, PIV TO LEFT FOREARM. NS INFUSING AT 10ML/HR, PROPOFOL INFUSING AT 50MCG/KG/MIN, HEPARIN INFUSING AT 25 UNITS/KG/HOUR, PRECEDEX INFUSING AT 0.7MCG/KG/HR.
[2023-07-02 20:57] LABS: Base Excess Venous 1.9 mmol/L; Bicarbonate Venous 25.7 mmol/L (24.0-30.0); PCO2 Venous 46.8 mmHg (38-42); pH Blood Venous 7.37 (7.34-7.37)
--- NOTE | 2023-07-02 21:52 | NUR ---
PHYSICIAN NOTIFY CALLED DR. RANDOLPH REGUARDING VBG RESULTS. NO NEW ORDERS.
[2023-07-03] VITALS (97 sets, daily range): BP systolic 97–181; BP diastolic 36–127
--- NOTE | 2023-07-03 01:28 | NUR ---
HEART RHYTHM CHANGES AT 0030 PT HEART RHYTHM CHANGED INTO AFIB WITH RVR WITH A RATE OF 130-140. CURRENTLY GOING BETWEEN SINUS RHYTHM AND AFIB WITH A FEW PACER BEATS AND PVC'S. AMIO INFUSING AT 0.5MG/HR, LEVOPHED INFUSING AT 2MCG/MIN. CALL OUT TO DR. BERUMEN.
--- NOTE | 2023-07-03 01:35 | NUR ---
MD NOTIFY SPOKE WITH DR. ATA ALVAREZING PTS HEART RATE AND RHYTHM, PT IN AFIB WITH RVR WITH A RATE OF 130-140. ORDERS RECEIVED.
[2023-07-03 01:38] LABS: Hematocrit 31.2 % (33.0-51.0); Hemoglobin 10.1 g/dL (11.5-16.0); Mean Corpuscular HGB 29.9 pg (26.0-34.0); Mean Corpuscular HGB Conc 32.4 g/dL (31.5-36.5); Mean Corpuscular Volume 92 fL (80-100); Mean Platelet Volume 10.7 fL (9.1-12.4); NRBC ABSOLUTE 0.04 K/mm3 (0.00-0.02); NRBC Auto 0.2 /100 WBC (0.0-0.2); Platelet Count 248 K/mm3 (150-400); RDW Coefficient Variation 15.1 % (11.7-14.2); RDW Standard Deviation 51.8 fL (35.1-46.3); Red Blood Cell Count 3.38 M/mm3 (3.80-5.20)
[2023-07-03 01:43] LABS: Albumin, Blood 2.1 g/dL (3.4-5.0); Albumin/Globulin Ratio 0.6 (0.8-1.8); Bilirubin, Total 0.5 mg/dL (0.1-1.0); Bun/Creatinine Ratio 16.1 (12.0-20.0); Creatinine, Blood 0.81 mg/dL (0.40-1.00); Globulin, Blood 3.7 g/dL (2.2-4.0); Phosphorus, Blood 3.3 mg/dL (2.5-4.9); Potassium, Blood 3.2 mmol/L (3.5-5.5); Total Protein, Blood 5.8 g/dL (6.4-8.2)
[2023-07-03 02:18] LABS: BAND PERCENT MAN 8 % (0-8); BASOPHILS ABSOLUTE MAN 0.16 K/mm3 (0.00-0.23); BASOPHILS PERCENT MAN 1 % (0-2); EOSINOPHILS ABSOLUTE MAN 0.81 K/mm3 (0.00-0.68); EOSINOPHILS PERCENT MAN 5 % (0-6); LYMPHOCYTES ABSOLUTE MAN 0.81 K/mm3 (0.84-5.20); LYMPHOCYTES PERCENT MAN 5 % (21-46); METAMYELOCYTE ABSOLUTE MAN 0.16 K/mm3 (0.00-0.00); METAMYELOCYTE PERCENT MAN 1 % (0-0); MONOCYTES ABSOLUTE MAN 2.26 K/mm3 (0.16-1.47); MONOCYTES PERCENT MAN 14 % (4-13); MYELOCYTE ABSOLUTE MAN 0.48 K/mm3 (0.00-0.00); MYELOCYTE PERCENT MAN 3 % (0-0); SEG NEUTROPHILS PERCENT MAN 63 % (41-73); TOTAL CELLS COUNTED 100
--- NOTE | 2023-07-03 05:49 | NUR ---
SHIFT SUMMARY PT RESTING IN BED. RESPONSIVE TO PRESSURE, MEDICATED PER EMAR. HR INITIALLY SINUS RHYTHM WITH AMIODARONE INFUSING AT 0.5MG/HR. AROUND 0030 PT SWITCHED INTO AFIB WITH RVR AT A RATE OF 130-140'S, 150MG AMIO BOLUS GIVEN. PT THEN WENT IN AND OUT OF AFIB WITH SOME PACED BEATS AND PVC'S. THIS AM PT IS CURRENTLY IN SINUS RHYTHM IN THE 70'S. BP HAS BEEN WNL, LEVOPHED INITIALLY AT 2MCG/MIN, CURRENTLY AT 1MCG/MIN WITH A MAP >65. PT INTUBATED, AC/VC 16/360/12/60%. RT DECREASED FIO2 TO 50% OXYGEN SATURATION DECREASED <90, INCREASED TO 60% AND HAS MAINTAINED OXYGEN SATURATION >95%. CENTRAL LINE TO LEFT FEM INFUSING HEPARIN AT 25 UNITS NO RATE CHANGES PER PHARMACY. NS TKO, PRECEDEX AT 0.7MCG/KG/HR, PROPOFOL AT 50MCG/KG. PIV TO LEFT FOREARM. RANDLE PATENT DRAINING TO GRAVITY. PT HAD A MAX TEMPERATURE OF 101.3, MEDICATED WITH TYLENOL WITH GOOD RESULTS.
--- NOTE | 2023-07-03 07:00 | NUR ---
ASSUME CARE: I have assumed care of this patient.
--- NOTE | 2023-07-03 10:00 | NUR ---
Spiritual Care Visit. Pt. is intubated and unresponsive. Spouse is at bedside and is the focus of this visit. Spouse welcomes my visit. Facilitate an update of Pts. prognosis. Listen with a calming presence. Spouse veralizes appreciation for the visit. Will continue to be available to Pt. and spouse.
--- NOTE | 2023-07-03 12:00 | NUR ---
SEDATION VACATION: With propofol off, pt nods "yes" or "no" to questions. She nods "yes" to pain. pt moves all extremities and is able to follow commands. However, pt does become very anxious with stimulation. Her heart rate was seen up to 170 bmp for a brief moment and respiratory rate in 40s. Propofol restarted for vent compliance and fentanyl GULLET SLITTER increased.
--- NOTE | 2023-07-03 17:40 | NUR ---
At bedside this am along with Ata when Dr. Lindsay stopped in to give him an update on pt's condition. She self extubated on 06/30 while under sedation and was re-intubated after a trial of BIPAP, which failed. She is currently on Amiodarone for a-fib with RVR. Ata tells me he is "positive she's gonna wake up and be fine". He appeared to have some noticeable anxiety, with shaky hands and rapid breathing when discussing 's condition. He did appear to calm when we stopped with the discussion and talked longer about their adult children and where they live currently. Plan to check in with pt's tomorrow, bring him a "Hard Choices for [employer] People book.
--- NOTE | 2023-07-03 18:42 | NUR ---
SHIFT SUMMARY: Fentanyl started today. Propofol was able to be titrated down. Pt is still very anxious with sedation down, but she is now able to tolerate turns and cares. Family at bedside throughout the day to receive updates. Tube feeds started. Lasix given with good diuresis. PICC line attempted, however it could not be advanced fully and will act as midline after discussion with Dr Lindsay.
--- NOTE | 2023-07-03 19:00 | NUR ---
ASSUMED CARE OF PATIENT REPORT RECEIVED FROM ISAAC CLEMENTS. PATIENT IS INTUBATED AND SEDATED. SR WITH HR IN THE 80'S. BP STABLE. HX OF DUAL CHAMBER PACER PLACEMENT 03/2023. INTUBATED WITH SETTINGS OF 16/360/12/55. ETT IS SIZE 7.5, PLACEMENT OF 23 CM AT THE TEETH. PINK FROTHY SPUTUM NOTED IN SUCTIONING CHAMBER. CURRENTLY RECEIVING TUBE FEEDS AT RATE OF 20ml/HR. TEMP PROBE RANDLE IN PLACE, DRAINING CLEAR YELLOW URINE TO GRAVITY. PIV TO RFA FLUSHES WELL. MIDLINE TO ELENITA, FLUSHES AND DRAWS WELL. PRECEDEX INFUSING AT 0.6, LEVOPHED AT 1, PROPOFOL AT 15. WILL CONTINUE TO MONITOR. SEE SHIFT ASSESSMENT FOR FULL ASSESSMENT DOCUMENTATION.
[2023-07-04] VITALS (89 sets, daily range): BP systolic 73–170; BP diastolic 27–87
--- NOTE | 2023-07-04 05:30 | NUR ---
SHIFT SUMMARY PATIENT REMAINED INTUBATED AND SEDATED THROUGHOUT ENTIRETY OF THE SHIFT. SR WITH HR IN 70'S-90'S. BP STABLE. INTUBATED: AC/VC 16/360/12/55. ETT IS SIZE 7.5 AND 23CM AT THE TEETH. OG TUBE PLACED AND PATIENT IS RECEIVING TUBE FEEDS AT 40mL/HR WITH 30mL FLUSH Q4H. TEMP PROBE RANDLE IN PLACE, DRAINING CLEAR YELLOW URINE TO GRAVITY. CENTRAL LINE TO L FEMORAL ARTERY REMOVED. MIDLINE TO ELENITA IN PLACE. PRECEDEX AT 0.6, LEVOPHED AT 2, PROPOFOL AT 15, FENTANYL AT 100. WILL CONTINUE TO MONITOR AND REPORT TO ONCOMING NURSE.
[2023-07-04 05:37] LABS: Hematocrit 29.2 % (33.0-51.0); Hemoglobin 9.2 g/dL (11.5-16.0); Mean Corpuscular HGB 29.3 pg (26.0-34.0); Mean Corpuscular HGB Conc 31.5 g/dL (31.5-36.5); Mean Corpuscular Volume 93 fL (80-100); NRBC ABSOLUTE 0.06 K/mm3 (0.00-0.02); NRBC Auto 0.4 /100 WBC (0.0-0.2); Platelet Count 244 K/mm3 (150-400); RDW Coefficient Variation 15.3 % (11.7-14.2); Red Blood Cell Count 3.14 M/mm3 (3.80-5.20); White Blood Cell Count 15.19 K/mm3 (4.00-11.30)
[2023-07-04 05:55] LABS: Anti-Xa UFH, PHA Monitoring 0.83 IU/mL
[2023-07-04 06:05] LABS: Bun/Creatinine Ratio 20.1 (12.0-20.0); Calcium, Blood 8.5 mg/dL (8.5-10.1); Creatinine, Blood 0.85 mg/dL (0.40-1.00); Magnesium, Blood 2.1 mg/dL (1.6-2.4); Phosphorus, Blood 3.8 mg/dL (2.5-4.9)
[2023-07-04 06:41] LABS: BAND PERCENT MAN 1 % (0-8); BASOPHILS PERCENT MAN 0 % (0-2); EOSINOPHILS ABSOLUTE MAN 0.91 K/mm3 (0.00-0.68); EOSINOPHILS PERCENT MAN 6 % (0-6); LYMPHOCYTES ABSOLUTE MAN 0.91 K/mm3 (0.84-5.20); LYMPHOCYTES PERCENT MAN 6 % (21-46); METAMYELOCYTE ABSOLUTE MAN 0.15 K/mm3 (0.00-0.00); METAMYELOCYTE PERCENT MAN 1 % (0-0); MONOCYTES PERCENT MAN 4 % (4-13); MYELOCYTE PERCENT MAN 2 % (0-0); SEG NEUTROPHILS PERCENT MAN 80 % (41-73); TOTAL CELLS COUNTED 100
[2023-07-04 10:46] LABS: Vancomycin, Trough 11.1 ug/mL (5.0-10.0)
--- NOTE | 2023-07-04 16:46 | NUR ---
Pt remains on ventilator, Dr. Moulton tells pt's Ata likely 4 more days. Ata has been spending time at bedside daily. He tells me the pt "is going to walk out of here". I'm spending time daily with him at the bedside, discussing their adult children, their pets, and hobbies and interests. He appears to be less anxious with each passing day. Gave Ata a copy of "Hard Choices for [employer]". Plan to continue with therapeutic visits for now.
--- NOTE | 2023-07-04 18:34 | NUR ---
SHIFT SUMMARY NO ACUTE CHANGES THIS SHIFT. PT REMAINS INTUBATED AND SEDATED. VENT SETTINGS REMAIN AC 16, TV 360, PEEP 12, FIO2 55%. PT WITH THIN PINK/BLOODY SECRETIONS WITH ETT SUCTION. PT SEDATED WITH PROPOFOL AT 55 MCG/KG/MIN AND FENTANYL DIRECTOR AUDIENCE MARKETING 100 MCG/HR. WITH SEDATION DECREASED PT IS ABLE TO FOLLOW SOME COMMANDS, AND CONTINUES TO REACH FOR ETT. MIDLINE PICC TO ELENITA REMAINS IN PLACE. HEPARIN INFUSING AT 25 UNIT/KG/HR, NS TKO, AND LEVOPHED AT 2 MCG/MIN. VITAL SIGNS HAVE REMAINED STABLE. PT WITH OGT IN PLACE WITH TF INFUSING AT GOAL RATE. RANDLE TEMP PROBE REMAINS IN PLACE WITH LARGE AMOUNT OF CLEAR YELLOW OUTPUT NOTED. SBW RESTRAINTS REMAIN IN PLACE. PT SPOUSE AT BEDSIDE THROUGHOUT THE SHIFT. WILL CONTINUE TO MONITOR AND REPORT OFF TO ONCOMING RN.
--- NOTE | 2023-07-04 19:00 | NUR ---
ASSUMED CARE ASSUMED CARE OF PATIENT. REMAINS INTUBATED- AC/VC+ 16/360/12/50%. MONITOR SHOWS NSR, RATE 80s. TEMP 99.6F PER RANDLE TEMP PROBE. LEVOPHED AT 2MCG/MIN TO MAINTAIN MAP >65. PROPOFOL INFUSING AT 55MCG/KG/MIN. FENTANYL FOREST PATROLMAN AT 100MCG/HR. HEPARIN GTT PER PHARMACY- 25UNITS/KG/HR. BILATERAL SOFT WRIST RESTRAINTS IN PLACE TO PREVENT SELF-EXTUBATING. OG WITH VITAL HIGH PROTEIN AT GOAL RATE OF 40MLS/HR. RANDLE PATENT AND DRAINING TO GRAVITY. ELENITA PICC/MIDLINE NOTED. 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 SEE SHIFT ASSESSMENT FOR FULL ASSESSMENT.
[2023-07-05] VITALS (82 sets, daily range): BP systolic 99–160; BP diastolic 42–77
[2023-07-05 04:21] LABS: Hematocrit 27.9 % (33.0-51.0); Hemoglobin 8.9 g/dL (11.5-16.0); Mean Corpuscular HGB 29.1 pg (26.0-34.0); Mean Corpuscular HGB Conc 31.9 g/dL (31.5-36.5); Mean Corpuscular Volume 91 fL (80-100); Mean Platelet Volume 10.4 fL (9.1-12.4); NRBC ABSOLUTE 0.03 K/mm3 (0.00-0.02); NRBC Auto 0.2 /100 WBC (0.0-0.2); Platelet Count 265 K/mm3 (150-400); RDW Coefficient Variation 15.4 % (11.7-14.2); RDW Standard Deviation 50.4 fL (35.1-46.3); Red Blood Cell Count 3.06 M/mm3 (3.80-5.20); White Blood Cell Count 15.96 K/mm3 (4.00-11.30)
[2023-07-05 04:47] LABS: Albumin, Blood 1.8 g/dL (3.4-5.0); Albumin/Globulin Ratio 0.4 (0.8-1.8); Bilirubin, Total 0.4 mg/dL (0.1-1.0); Bun/Creatinine Ratio 32.1 (12.0-20.0); Calcium, Blood 8.6 mg/dL (8.5-10.1); Creatinine, Blood 0.69 mg/dL (0.40-1.00); Magnesium, Blood 2.3 mg/dL (1.6-2.4); Potassium, Blood 3.5 mmol/L (3.5-5.5); Total Protein, Blood 5.8 g/dL (6.4-8.2)
[2023-07-05 05:34] LABS: BAND PERCENT MAN 2 % (0-8); BASOPHILS ABSOLUTE MAN 0.63 K/mm3 (0.00-0.23); BASOPHILS PERCENT MAN 4 % (0-2); EOSINOPHILS ABSOLUTE MAN 1.27 K/mm3 (0.00-0.68); EOSINOPHILS PERCENT MAN 8 % (0-6); LYMPHOCYTES ABSOLUTE MAN 2.87 K/mm3 (0.84-5.20); LYMPHOCYTES PERCENT MAN 18 % (21-46); METAMYELOCYTE ABSOLUTE MAN 0.95 K/mm3 (0.00-0.00); METAMYELOCYTE PERCENT MAN 6 % (0-0); MONOCYTES ABSOLUTE MAN 0.63 K/mm3 (0.16-1.47); MONOCYTES PERCENT MAN 4 % (4-13); NEUTROPHILS ABSOLUTE MAN 9.57 K/mm3 (1.96-9.15); SEG NEUTROPHILS PERCENT MAN 58 % (41-73); TOTAL CELLS COUNTED 100
--- NOTE | 2023-07-05 06:50 | NUR ---
SHIFT SUMMARY NO ACUTE CHANGES DURING SHIFT. REMAINS INTUBATED- AC/VC+ 16/360/12/45%. SEDATED WITH PROPOFOL AT 45MCG/KG/MIN. MEDICATED WITH ATIVAN 2MG IV X 1 DOSE FOR AGITATION. PT WITHDRAWS ALL EXTREMITIES TO NOXIOUS STIMULI. SQUEEZED LEFT HAND ONCE TO COMMAND, OTHERWISE NOT FOLLOWING OTHER COMMANDS. OPENS EYES SLIGHTLY TO NOXIOUS STIMULI. BILATERAL SOFT WRIST RESTRAINTS IN PLACE TO PREVENT SELF-EXTUBATION. LEVOPED NOW AT 1MCG/MIN TO MAINTAIN MAP >65. HR 80s-90s. ONE EPISODE OF AFIB, RATE 90s-100s, BUT VERY SHORT IN LENGTH. TMAX 100F. OG WITH VITAL HIGH PROTEIN AT GOAL RATE OF 40MLS/HR. RANDLE PATENT AND DRAINING TO GRAVITY. HEPARIN INFUSING PER PHARMACY AT 24UNITS/KG/HR. WILL REPORT TO ONCOMING RN WHEN AVAILABLE.
--- NOTE | 2023-07-05 17:25 | NUR ---
SHIFT SUMMARY NO ACUTE EVENTS THIS SHIFT. PROPOL TITRATED DOWN TO 35MCG/KG/MIN, BUT PATIENT FREQUENTLY GRIMACED AND COUGHED AROUND ETT REQUIRING TWO DOSES OF FENATNYL 50MCG IV PUSH WITH FENTANYL COMMUNICATIONS SPECIALIST INF @ 100MCG/HR. PATIENT WOULD LIFT HEAD OFF PILLOW AND BLINK, BUT WOULD NOT OPEN EYES ON COMMAND, TRACK, OR FOLLOW OTHER COMMANDS. PROPOFOL TITRATED BACK UP TO 40MCG/KG/MIN FOR PATIENT COMFORT AND TOLERANCE. KCL 100MEQ PT ADMINISTERED FOR POTASSIUM DROP FROM 4.O TO 3.5 WITH CONTINUED USE OF LASIX IV. LUNG SOUNDS CLEAR T/O AT THIS TIME. SMALL BLOOD IN ETT WHEN DEEP SUCTIONED THIS AFTERNOON, OTHERWISE NO BLOOD IN ETT. VENT SETTINGS AC/VC 16/360/12/45% WITH SPO2 GREATER THAN 90%. TF REMAINS AT GR 40ML/HR. NO BM THIS SHIFT. GOOD URINE OUTPUT VIA TEMP RANDLE. MEDICATED FOR FEVER OF 100.5F WITH 650MG TYLENOL PT.
--- NOTE | 2023-07-05 19:50 | NUR ---
ASSUMED CARE OF PATIENT RECEVIED REPORT FROM ISAAC PIZARRO PATIENT INTUBATED AND SEDATED. SHE WAS BLINKING DURING ASSESSMENT, BUT WHEN ASKED TO SQUEEZE MY HAND OR SHAKE HER HEAD, SHE MADE NO PURPOSEFUL MOVEMENTS. SR WITH HR OF 95. BP 116/54. VENTILATOR AC/VC WITH SETTINGS AT 16/360/45/12. O2 SATURATION AT 93%. OG TUBE IN PLACE WITH TUBE FEEDS RUNNING AT 40 WITH 30mL FLUSHES Q4H. TEMP RANDLE IN PLACE, DRAINING CLEAR YELLOW URINE TO GRAVITY. MIDLINE TO ELENITA INFUSING PROPOFOL AT 40, LEVOPHED AT 1, HEPARIN AT 24, NS TKO AT 10. WILL CONTINUE TO MONITOR. SEE SHIFT ASSESS FOR FULL ASSESSMENT.
[2023-07-06] VITALS (78 sets, daily range): BP systolic 80–138; BP diastolic 38–78
--- NOTE | 2023-07-06 02:24 | NUR ---
NEW TUBE FEED NEW BOTTLE OF VITAL HP HUNG AT 0220
[2023-07-06 03:36] LABS: Hematocrit 31.1 % (33.0-51.0); Hemoglobin 9.7 g/dL (11.5-16.0); Mean Corpuscular HGB 29.4 pg (26.0-34.0); Mean Corpuscular HGB Conc 31.2 g/dL (31.5-36.5); Mean Corpuscular Volume 94 fL (80-100); Mean Platelet Volume 10.7 fL (9.1-12.4); NRBC ABSOLUTE 0.17 K/mm3 (0.00-0.02); NRBC Auto 0.8 /100 WBC (0.0-0.2); Platelet Count 305 K/mm3 (150-400); RDW Coefficient Variation 15.4 % (11.7-14.2); White Blood Cell Count 20.84 K/mm3 (4.00-11.30)
[2023-07-06 03:52] LABS: Albumin, Blood 1.9 g/dL (3.4-5.0); Anion Gap 3 mmol/L (6-16); Blood Urea Nitrogen 23 mg/dL (8-24); Bun/Creatinine Ratio 31.3 (12.0-20.0); CO2, Blood 29 mmol/L (21-32); Calcium, Blood 8.7 mg/dL (8.5-10.1); Chloride, Blood 110 mmol/L (98-108); Creatinine, Blood 0.73 mg/dL (0.40-1.00); Glomerular Filtration Rate 85 (60-); Glucose, Blood 219 mg/dL (70-99); Magnesium, Blood 2.4 mg/dL (1.6-2.4); Phosphorus, Blood 3.7 mg/dL (2.5-4.9); Potassium, Blood 4.4 mmol/L (3.5-5.5); Sodium, Blood 142 mmol/L (136-145)
[2023-07-06 04:16] LABS: BAND PERCENT MAN 4 % (0-8); BASOPHILS PERCENT MAN 0 % (0-2); EOSINOPHILS ABSOLUTE MAN 0.83 K/mm3 (0.00-0.68); EOSINOPHILS PERCENT MAN 4 % (0-6); LYMPHOCYTES ABSOLUTE MAN 2.29 K/mm3 (0.84-5.20); LYMPHOCYTES PERCENT MAN 11 % (21-46); METAMYELOCYTE ABSOLUTE MAN 0.83 K/mm3 (0.00-0.00); METAMYELOCYTE PERCENT MAN 4 % (0-0); MONOCYTES PERCENT MAN 13 % (4-13); MYELOCYTE ABSOLUTE MAN 0.83 K/mm3 (0.00-0.00); MYELOCYTE PERCENT MAN 4 % (0-0); NEUTROPHILS ABSOLUTE MAN 13.33 K/mm3 (1.96-9.15); SEG NEUTROPHILS PERCENT MAN 60 % (41-73); TOTAL CELLS COUNTED 100
--- NOTE | 2023-07-06 05:15 | NUR ---
SHIFT SUMMARY. PATIENT REMAINED INTUBATED AND SEDATED THROUGHOUT THE ENTIRETY OF THE SHIFT. SHE MADE NO PURPOSEFUL MOVEMENTS AND WAS NONVERBAL, BUT SHE DID WITHDRAW FROM NAILBED PRESSURE. CONVERTED TO AFIB WITH RVR WITH HR UP TO 140'S AND WAS RESTARTED ON AMIODARONE 400MG BID PER HOSPITALIST. HR DECREASED TO 80'S. VENT SETTINGS ARE AC/VC - 16/360/45/12. O2 SATURATIONS IN THE 90'S. MRSA + IN NARES AND SPUTUM. TUBE FEEDS INFUSING AT GOAL OF 40mL WITH 30mL FLUSHES Q4H. NO BM THIS SHIFT. TEMP RANDLE IS DRAINING CLEAR YELLOW URINE TO GRAVITY. MIDLINE TO ELENITA WITH LEVOPHED INFUSING AT 1, PROPOFOL AT 40, HEPARIN AT 24. WILL CONTINUE TO MONITOR AND REPORT TO ONCOMING NURSE.
[2023-07-06 11:47] LABS: Vancomycin, Trough 18.6 ug/mL (5.0-10.0)
--- NOTE | 2023-07-06 17:07 | NUR ---
SHIFT SUMMARY NO ACUTE CHANGES THIS SHIFT. PT HAS REMAINED INTUBATED AND SEDATED. PT WITH IMPROVEMENT OF VENT SETTINGS TO AC 16, TV 360, PEEP 10, FIO2 40%. PT CONTINUES TO HAVE SMALL AMOUNT OF ROSALES/PINK TINGED SECRETIONS WITH ETT SUCTION. PT WITH COUGH AND GAG PRESENT. PT OCCASIONALLY REACHES FOR ETT, BUT DOES NOT FOLLOW DIRECTIONS. OGT IN PLACE WITH TF INFUSING AT GOAL RATE. PICC REMAINS IN PLACE WITH HEPARIN INFUSING AT 24 UNITS/KG/HR, NS TKO, LEVOPHED 1 MCG/MIN, FENTANYL DIRECTIONAL BORE OPERATOR 100 MCG/HR, AND PROPOFOL 50 MCG/KG/MIN. VITAL SIGNS REMAIN STABLE. RANDLE TEMP PROBE REMAINS IN PLACE WITH LARGE VOLUME OF CLEAR YELLOW OUTPUT NOTED. SBW RESTRAINTS REMAIN IN PLACE. PT SPOUSE AT BEDSIDE THROUGHOUT THE DAY. WILL CONTINUE TO MONITOR AND REPORT OFF TO ONCOMING RN.
--- NOTE | 2023-07-06 19:11 | NUR ---
ASSUMED CARE OF PT AT 1900. PT SEDATED AND INTUBATED AT THIS TIME. HR 81 BP 100/59 (71) SPO2 93% SEE FULL ASSESSMENT FOR FUTHER INFORMATION.
--- NOTE | 2023-07-06 19:12 | NUR ---
RT IN ROOM WITH PT AT THIS TIME.
[2023-07-07] VITALS (67 sets, daily range): BP systolic 99–136; BP diastolic 41–63
[2023-07-07 04:48] LABS: Hematocrit 29.5 % (33.0-51.0); Hemoglobin 9.3 g/dL (11.5-16.0); Mean Corpuscular HGB 29.1 pg (26.0-34.0); Mean Corpuscular HGB Conc 31.5 g/dL (31.5-36.5); Mean Corpuscular Volume 92 fL (80-100); Mean Platelet Volume 10.8 fL (9.1-12.4); NRBC ABSOLUTE 0.16 K/mm3 (0.00-0.02); NRBC Auto 0.8 /100 WBC (0.0-0.2); Platelet Count 354 K/mm3 (150-400); RDW Coefficient Variation 15.4 % (11.7-14.2); RDW Standard Deviation 51.5 fL (35.1-46.3); White Blood Cell Count 20.42 K/mm3 (4.00-11.30)
[2023-07-07 05:10] LABS: Albumin, Blood 1.8 g/dL (3.4-5.0); Anion Gap 6 mmol/L (6-16); Blood Urea Nitrogen 25 mg/dL (8-24); Bun/Creatinine Ratio 37.7 (12.0-20.0); CO2, Blood 27 mmol/L (21-32); Calcium, Blood 8.7 mg/dL (8.5-10.1); Chloride, Blood 108 mmol/L (98-108); Creatinine, Blood 0.66 mg/dL (0.40-1.00); Glomerular Filtration Rate 91 (60-); Glucose, Blood 236 mg/dL (70-99); Phosphorus, Blood 3.6 mg/dL (2.5-4.9); Potassium, Blood 3.5 mmol/L (3.5-5.5); Sodium, Blood 141 mmol/L (136-145)
[2023-07-07 05:45] LABS: BAND PERCENT MAN 4 % (0-8); BASOPHILS PERCENT MAN 0 % (0-2); EOSINOPHILS ABSOLUTE MAN 1.42 K/mm3 (0.00-0.68); EOSINOPHILS PERCENT MAN 7 % (0-6); LYMPHOCYTES % ATYPICAL MANUAL 2 % (0-0); LYMPHOCYTES ABSOLUTE MAN 3.87 K/mm3 (0.84-5.20); LYMPHOCYTES PERCENT MAN 17 % (21-46); METAMYELOCYTE ABSOLUTE MAN 1.42 K/mm3 (0.00-0.00); METAMYELOCYTE PERCENT MAN 7 % (0-0); MONOCYTES ABSOLUTE MAN 0.81 K/mm3 (0.16-1.47); MONOCYTES PERCENT MAN 4 % (4-13); NEUTROPHILS ABSOLUTE MAN 12.86 K/mm3 (1.96-9.15); SEG NEUTROPHILS PERCENT MAN 59 % (41-73); TOTAL CELLS COUNTED 100
--- NOTE | 2023-07-07 06:03 | NUR ---
END OF SHIFT SUMMARY PT DOES NOT FOLLOW COMMANDS. FURROWS BROWS WITH ORAL TREATMENTS. RESPONDS TO NOXIOUS STIMULI. OPENS EYE LIDS WITH NO EYE MOVEMENT INVOLOVED. PROPOFOL @ 50 MCG/KG/MIN. RESP- VENT AT AC/PC 12/8PEEP/45% WITH SPO2 >92%. THICK FROTHY SPUTUM PRESENT WITH SUCTION PINK AND ROSALES COLORS. CARDIAC- SR WITH OCCASIONAL PVC'S. PT DOES BECOME TACHY AT TIMES. LEVO @ 3 MCG/MIN WITH MAP >65. HEPARIN @ 22 UNITS/KG/HR. GI,- NO BM THIS SHIFT. TF AT GOAL RATE OF 40 MLS/HR WITH 30 MLS FLUSH Q4HR TEMP RANDLE DRAINING TO GRAVITY WITH YELLOW/CLEAR URINE PRESENT. WILL CONTINUE TO MONITOR UNTIL SHIFT REPORT GIVENT O JOSY GRAY.
--- NOTE | 2023-07-07 08:05 | NUR ---
ASSUMED CARE: REPORT RECEIVED FROM KERRIE Hunt RN. ASSUMED CARE OF THIS PT AT APPROX 0700. ON ASSESSMENT, THE PT IS INTUBATED & SEDATED W/ PROPOFOL & FENTANYL. SHE WITHDRAWS FROM PAINFUL STIMULUS & IS OVERALL RESTING QUIETLY. DOES NOT FOLLOW DIRECTIONS. EYES OPEN PARTIALLY TO TACTILE STIMULUS. LS COARSE IN BASES, PT ON VENTILATOR W/ SETTINGS: AC/PC 16/12/8/45% W/ O2 SATS > 92%. MONITOR SHOWS AFIB W/ OCCASIONAL PVCs, HR 70-80s. CONVERTING BETWEEN AFIB & SR AT TIMES. LEVOPHED INFUSING FOR HYPOTENSION - SEE FLOWSHEET FOR TITRATIONS. OGT IN PLACE W/ TUBE FEEDS INFUSING AT GOAL RATE, NO S/SX INTOLERANCE NOTED. TEMP RANDLE PATENT/ DRAINING YELLOW URINE REMAINS IN PLACE FOR CRITICAL I&O MONITORING. SKIN CONDITION OVERALL FRAGILE, INTACT. LT FEMORAL SITE OF PRIOR CENTRAL LINE WNL; NO BLEEDING, BRUISING OR HEMATOMA FORMATION NOTED. Q2H REPOSITIONING TO MAINTAIN SKIN INTEGRITY. WILL CONTINUE TO MONITOR & UPDATE NEEDED.
--- NOTE | 2023-07-07 09:15 | NUR ---
DR ORTIZ: PROVIDER AT BEDSIDE THIS AM TO JOSE PT. HE HAS SPOKEN W/ THE PT's & UPDATED HIM ON CONTINUED PLAN OF CARE. THERE WILL BE NO MAJOR CHANGES TO PLAN OF CARE OR VENT SETTINGS TODAY THE PT IS DOING WELL CURRENTLY. NO NEW ORDERS AT THIS TIME.
--- NOTE | 2023-07-07 17:50 | NUR ---
SHIFT SUMMARY: NO ACUTE CHANGES SINCE PRIOR UPDATES. PT REMAINS INTUBATED & SEDATED, OVERALL RESTING QUIETLY THIS SHIFT & TOLERATING VENTILATOR. SEDATION ADJUNCT MEDS PER EMAR GIVEN PRN TO MANAGE AGITATION. WITHDRAWS ALL EXTREMITIES FROM PAINFUL STIMULUS, OPENS EYES TO SOUND. DOES NOT FOLLOW DIRECTIONS. LS COARSE IN BASES, PT ON VENT W/ SETTINGS: AC/PC 16/12/8/45% W/ O2 SATS > 90%. DESATS TO 87% THIS AFTERNOON WHILE TURNED ON LEFT SIDE, NOW IMPROVED. MONITOR SHOWS SR W/ HR 70s, BP STABLE W/ LEVOPHED ON STANDBY SINCE APPROX 1155 THIS AM. OGT REMAINS IN PLACE W/ TUBE FEEDS INFUSING AT GOAL RATE, NO S/SX INTOLERANCE NOTED, NO BM THIS SHIFT. TEMP RANDLE PATENT/ DRAINING YELLOW URINE. AFEBRILE THIS SHIFT. SKIN CONDITION OVERALL INTACT, UNCHANGED SINCE AM ASSESSMENT. Q2H REPOSITIONING TO MAINTAIN SKIN INTEGRITY. WILL CONTINUE TO MONITOR & REPORT OFF TO ONCOMING RN.
[2023-07-08] VITALS (60 sets, daily range): BP systolic 103–162; BP diastolic 42–60
[2023-07-08 02:27] LABS: Hematocrit 28.3 % (33.0-51.0); Hemoglobin 8.9 g/dL (11.5-16.0); Mean Corpuscular HGB 29.5 pg (26.0-34.0); Mean Corpuscular HGB Conc 31.4 g/dL (31.5-36.5); Mean Corpuscular Volume 94 fL (80-100); Mean Platelet Volume 10.7 fL (9.1-12.4); NRBC ABSOLUTE 0.19 K/mm3 (0.00-0.02); NRBC Auto 1.1 /100 WBC (0.0-0.2); Platelet Count 333 K/mm3 (150-400); RDW Coefficient Variation 15.3 % (11.7-14.2); RDW Standard Deviation 52.6 fL (35.1-46.3); Red Blood Cell Count 3.02 M/mm3 (3.80-5.20); White Blood Cell Count 16.85 K/mm3 (4.00-11.30)
[2023-07-08 02:50] LABS: Albumin, Blood 1.7 g/dL (3.4-5.0); Anion Gap 3 mmol/L (6-16); Blood Urea Nitrogen 25 mg/dL (8-24); Bun/Creatinine Ratio 34.2 (12.0-20.0); CO2, Blood 29 mmol/L (21-32); Calcium, Blood 8.2 mg/dL (8.5-10.1); Chloride, Blood 113 mmol/L (98-108); Creatinine, Blood 0.73 mg/dL (0.40-1.00); Glomerular Filtration Rate 85 (60-); Glucose, Blood 203 mg/dL (70-99); Phosphorus, Blood 4.1 mg/dL (2.5-4.9); Potassium, Blood 4.8 mmol/L (3.5-5.5); Sodium, Blood 145 mmol/L (136-145)
[2023-07-08 02:51] LABS: BAND PERCENT MAN 4 % (0-8); BASOPHILS ABSOLUTE MAN 0.33 K/mm3 (0.00-0.23); BASOPHILS PERCENT MAN 2 % (0-2); EOSINOPHILS ABSOLUTE MAN 0.16 K/mm3 (0.00-0.68); EOSINOPHILS PERCENT MAN 1 % (0-6); LYMPHOCYTES ABSOLUTE MAN 3.03 K/mm3 (0.84-5.20); LYMPHOCYTES PERCENT MAN 18 % (21-46); METAMYELOCYTE ABSOLUTE MAN 0.16 K/mm3 (0.00-0.00); METAMYELOCYTE PERCENT MAN 1 % (0-0); MONOCYTES ABSOLUTE MAN 1.68 K/mm3 (0.16-1.47); MONOCYTES PERCENT MAN 10 % (4-13); MYELOCYTE PERCENT MAN 3 % (0-0); NEUTROPHILS ABSOLUTE MAN 10.95 K/mm3 (1.96-9.15); SEG NEUTROPHILS PERCENT MAN 61 % (41-73); TOTAL CELLS COUNTED 100
--- NOTE | 2023-07-08 06:06 | NUR ---
PATIENT OPENS EYES TO TOUCH BUT DOES NOT FOLLOW COMMANDS. PROPOFOL AND FENTANYL GTT USED TO KEEP PATIENT CALM AND COMFORTABLE. SR WITH LEVOPHED INTERMITTENTLY INFUSING OVERNIGHT TO MAINTAIN MAPS >65. INTUBATED PC RR 16 PI 12 PEEP 8 FIO2 45%. OGT WITH TF AT GOAL. MILK OF MAG GIVEN FOR CONSTIPATION, NO BM OVERNIGHT. RANDLE WITH ADEQUATE URINE OUTPUT. HEPARIN GTT INFUSING.
--- NOTE | 2023-07-08 08:41 | NUR ---
ASSUMED CARE REPORT FROM GUERRERO GRAY AT 0700. PT INTUBATED AND SEDATED. VENT SETTINGS PC 16/12/8/45%. LUNGS CLEAR, SLIGHTLY COARSE IN BASES. SMALL AMOUNT OF YELLOW SECRETIONS FROM ETT. PROPOFOL AND FENTANYL GTT FOR SEDATION. RASS -4. PT GRIMACES c CARE. DOES NOT WITHDRAW EXT, DOES NOT FOLLOW COMMANDS. SR ON MONITOR, RATE 800-100'S. LEVO PLACED ON STANDBY. MAP >65. TUBE FEEDS AT GOAL, BOWEL CARE PROVIDED. RANDLE PATENT, DIURESING. CLEAR YELLOW URINE OUT TO GRAVITY. SO AT BEDSIDE. UPDATED ON PROGRESS, QUESTIONS ANSWERED. WILL CONTINUE TO MONITOR.
[2023-07-08 11:35] LABS: Free Thyroxine 0.89 ng/dL (0.70-1.60)
--- NOTE | 2023-07-08 15:18 | NUR ---
Met with pt's this morning at bedside. She remains on the vent, with possibility of extubation tomorrow. Her Ata continues sitting with her daily, holding her hand and talking to her often. He remains very positive, frequently makes statements like, "She's going to be ok". He reflected today how lonely the house is without his in it. He states he is keeping their adult children in the loop, and has help from a grandson with feeding the animals and caring for the home No changes to pt's care plan at this time. Palliative care will continue with therapeutic visits.
--- NOTE | 2023-07-08 17:38 | NUR ---
SHIFT SUMMARY PT REMAINS INTUBATED AND SEDATED. VENT SETTINGS PC 16/10/5/45%. LUNGS CLEAR. SCANT WHITE SECRETIONS FROM ETT. PROPOFOL AND FENTANYL GTT FOR SEDATION AND PAIN. RASS -3-4. PT APPEARS HEAVILY SEDATED, THOUGH OCCASIONALLY OPENS EYES, APPEARS SCARED AND ANXIOUS. DOES NOT FOLLOW COMMANDS. PT HAS BEEN IN SR MOST OF SHIFT, WAS IN AFIB FOR APROX TWO HOURS MID SHIFT. RATE 80-90'S WHEN IN SINUS, 110-130'S WHEN IN AFIB. BP STABLE. LEVO GTT OFF SINCE THIS AM. TUBE FEEDS AT GOAL. SUPPOSITORY GIVEN THIS SHIFT, SMALL BROWN BM. RANDLE PATENT, DRAINING CLEAR YELLOW URINE TO GRAVITY. MIDLINE CATH TO LUE, 10 CM EXPOSED. WILL CONTINUE TO MONITOR UNTIL REPORT TO ONCOMING NURSE.
--- NOTE | 2023-07-08 21:12 | NUR ---
ASSUMED CARE OF PATIENT AT 1900. RECEIVED REPORT FROM ISAAC VIERA. VSS STABLE AND NO ACUTE NEEDS IDENTIFIED AT THIS TIME. SEE SHIFT ASSESS FOR FULL ASSESSMENT DETAILS.
[2023-07-09] VITALS (43 sets, daily range): BP systolic 84–176; BP diastolic 45–90
--- NOTE | 2023-07-09 01:42 | NUR ---
PATIENT EDUCATION ALTHOUGH PATIENT IS UNABLE TO EXHIBIT OR VERBALIZE UNDERSTANDING D/T INTUBATION AND SEDATION, SHE IS STILL VERBALLY EDUCATED ON INTERVENTIONS THEY ARE BEING IMPLEMENTED, I.E. ORAL CARE, MEDICATION ADMINISTRATION, POSITION CHANGE, ETC.
[2023-07-09 04:34] LABS: Hematocrit 26.4 % (33.0-51.0); Hemoglobin 8.4 g/dL (11.5-16.0); Mean Corpuscular HGB 29.9 pg (26.0-34.0); Mean Corpuscular HGB Conc 31.8 g/dL (31.5-36.5); Mean Corpuscular Volume 94 fL (80-100); Mean Platelet Volume 10.8 fL (9.1-12.4); NRBC ABSOLUTE 0.15 K/mm3 (0.00-0.02); NRBC Auto 0.8 /100 WBC (0.0-0.2); Platelet Count 340 K/mm3 (150-400); RDW Coefficient Variation 15.7 % (11.7-14.2); RDW Standard Deviation 53.3 fL (35.1-46.3); Red Blood Cell Count 2.81 M/mm3 (3.80-5.20); White Blood Cell Count 17.83 K/mm3 (4.00-11.30)
[2023-07-09 04:59] LABS: Albumin, Blood 1.8 g/dL (3.4-5.0); Albumin/Globulin Ratio 0.4 (0.8-1.8); Bilirubin, Total 0.5 mg/dL (0.1-1.0); Bun/Creatinine Ratio 29.9 (12.0-20.0); Calcium, Blood 7.8 mg/dL (8.5-10.1); Creatinine, Blood 0.67 mg/dL (0.40-1.00); Globulin, Blood 4.1 g/dL (2.2-4.0); Magnesium, Blood 2.7 mg/dL (1.6-2.4); Phosphorus, Blood 3.6 mg/dL (2.5-4.9); Total Protein, Blood 5.9 g/dL (6.4-8.2)
[2023-07-09 05:12] LABS: PCO2 Arterial 42.7 mmHg (35-45); PO2 Arterial 55.6 mmHg (80-100); pH Blood Arterial 7.43 (7.35-7.45)
--- NOTE | 2023-07-09 06:16 | NUR ---
SHIFT SUMMARY. PATIENT REMAINED INTUBATED AND SEDATED THROUGHOUT THE ENTIRETY OF THE SHIFT. SHE DOES NOT FOLLOW VERBAL COMMANDS AND MAKES NO PURPOSEFUL MOVEMENTS, BUT SHE GRIMACES WITH CARE AND WITHDRAWS FROM PAINFUL STIMULI. BP REMAINED STABLE. SR ON MONITOR WITH HR IN 90'S-100'S. VENT SETTINGS AC/VC ///35%. PLAN TO EXTUBATE 07/09/13 AM. TUBE FEEDS INFUSING AT GOAL OF 40mL/HR WITH 30mL FLUSHES Q4H. NO BM THIS SHIFT, HOWEVER STOOL SOFTENERS WERE GIVEN 07/08/23 AM WHICH PRODUCED TWO BM'S. TEMP RANDLE DRAINING CLEAR YELLOW URINE TO GRAVITY. MIDLINE TO ELENITA INFUSING HEPARIN AT 19 U/KG/HR, PROPOFOL AT 35 MCG/KG/HR. LEVO ON SB. FENTANYL RUNNING AT 100MCG. WILL CONTINUE TO MONITOR AND REPORT TO ONCOMING NURSE.
[2023-07-09 06:25] LABS: BAND PERCENT MAN 2 % (0-8); BASOPHILS PERCENT MAN 0 % (0-2); EOSINOPHILS ABSOLUTE MAN 1.06 K/mm3 (0.00-0.68); EOSINOPHILS PERCENT MAN 6 % (0-6); LYMPHOCYTES ABSOLUTE MAN 2.49 K/mm3 (0.84-5.20); LYMPHOCYTES PERCENT MAN 14 % (21-46); METAMYELOCYTE ABSOLUTE MAN 0.35 K/mm3 (0.00-0.00); METAMYELOCYTE PERCENT MAN 2 % (0-0); MONOCYTES ABSOLUTE MAN 0.35 K/mm3 (0.16-1.47); MONOCYTES PERCENT MAN 2 % (4-13); MYELOCYTE ABSOLUTE MAN 0.35 K/mm3 (0.00-0.00); MYELOCYTE PERCENT MAN 2 % (0-0); NEUTROPHILS ABSOLUTE MAN 13.19 K/mm3 (1.96-9.15); SEG NEUTROPHILS PERCENT MAN 72 % (41-73); TOTAL CELLS COUNTED 100
--- NOTE | 2023-07-09 15:02 | NUR ---
Pt's at bedside most of the day again today. The decision was made to wait another day to attempt extubation due to her 02 needs, and her inability to wake up as well as the physician would have liked. Ata states he is "a little disappointed", but remains positive for trying again tomorrow. Will continue with supportive visits.
--- NOTE | 2023-07-09 17:05 | NUR ---
SHIFT SUMMARY PT HAS DONE WELL THIS SHIFT. PT REMAINS INTUBATED AND NOT SEDATED. PT HAS BEEN OFF SEDATION MOST OF THIS SHIFT AND VENT SETTINGS PRESSURE SUPPORT 7/5, FIO2 40%. PT SLOW TO WAKE, BUT IS ABLE TO FOLLOW SIMPLE COMMANDS AND NOD HEAD YES/NO TO QUESTIONS APPROPRIATELY. PT CONTINUES TO HAVE THIN ROSALES/CLEAR ETT SECRETIONS WITH SUCTION. OGT REMAINS IN PLACE WITH TF INFUSING AT GOAL RATE. PICC TO ELENITA IN PLACE WITH NS TKO, HEPARIN AT 19 UNITS/KG/HR, AND FENTANYL TUFTING SUPERVISOR 50 MCG/HR. RANDLE TEMP PROBE REMAINS IN PLACE WITH CLEAR YELLOW OUTPUT NOTED. VITAL SIGNS HAVE REMAINED STABLE. SBW RESTRAINTS REMAIN IN PLACE. PT SPOUSE AT BEDSIDE MOST OF THIS SHIFT. PLAN FOR PT TO BE RESEDATED AND PLACED BACK TO AC VENT SETTINGS FOR NOC SHIFT, THEN BACK TO PRESSURE SUPPORT TOMORROW AM. WILL CONTINUE TO MONITOR AND REPORT OFF TO ONCOMING RN.
--- NOTE | 2023-07-09 19:09 | NUR ---
ASSUMED CARE OF PATIENT AT 1900. REPORT RECEIVED FROM ISAAC MIGUEL. VSS STABLE AND NO ACUTE PATIENT NEEDS IDENTIFIED AT THIS TIME. SEE SHIFT ASSESS FOR FULL ASSESSMENT DETAILS.
--- NOTE | 2023-07-09 20:45 | NUR ---
PT WAS PLACED BACK ON AC/PC VENT MODE FROM SPONTANEOUS AT APPX 203 BY SCAR GUTIERREZ. PT WAS NOTED TO BE INCREASINGLY TACHYCARDIC, SHOWING S/S OF FATIGUE SUCH USING ACCESSORY MUSCLES FOR RESPIRATION. PT SETTINGS ARE RR16,45%FIO2,PEEP 8,PI OF 10. PT PROPOFOL WAS RESTARTED FOR VENT COMPLIANCE/ COMFORT.
--- NOTE | 2023-07-09 22:56 | NUR ---
PATIENT EDUCATION PATIENT WAS ABLE TO SHAKE HER HEAD YES AND NO APPROPRIATELY WHEN SHE WAS GIVEN VERBAL INSTRUCTIONS ON INTERVENTIONS BEING IMPLEMENTED, SUCH LISTENING TO HEART AND LUNG SOUNDS, REPOSITIONING, ETC. SHE WAS ALSO ABLE TO FOLLOW VERBAL COMMANDS AND MAKE PURPOSEFUL MOVEMENTS.
[2023-07-10] VITALS (92 sets, daily range): BP systolic 83–202; BP diastolic 41–91
[2023-07-10 03:43] LABS: Hematocrit 29.1 % (33.0-51.0); Hemoglobin 9.1 g/dL (11.5-16.0); Mean Corpuscular HGB 28.8 pg (26.0-34.0); Mean Corpuscular HGB Conc 31.3 g/dL (31.5-36.5); Mean Corpuscular Volume 92 fL (80-100); Mean Platelet Volume 10.7 fL (9.1-12.4); NRBC ABSOLUTE 0.11 K/mm3 (0.00-0.02); NRBC Auto 0.6 /100 WBC (0.0-0.2); Platelet Count 394 K/mm3 (150-400); RDW Coefficient Variation 15.9 % (11.7-14.2); RDW Standard Deviation 52.6 fL (35.1-46.3); Red Blood Cell Count 3.16 M/mm3 (3.80-5.20); White Blood Cell Count 19.08 K/mm3 (4.00-11.30)
[2023-07-10 04:05] LABS: Albumin/Globulin Ratio 0.4 (0.8-1.8); Bilirubin, Total 0.4 mg/dL (0.1-1.0); Bun/Creatinine Ratio 37.5 (12.0-20.0); Calcium, Blood 8.7 mg/dL (8.5-10.1); Creatinine, Blood 0.67 mg/dL (0.40-1.00); Globulin, Blood 4.7 g/dL (2.2-4.0); Potassium, Blood 3.7 mmol/L (3.5-5.5); Total Protein, Blood 6.7 g/dL (6.4-8.2)
[2023-07-10 04:24] LABS: BAND PERCENT MAN 3 % (0-8); BASOPHILS ABSOLUTE MAN 0.19 K/mm3 (0.00-0.23); BASOPHILS PERCENT MAN 1 % (0-2); EOSINOPHILS ABSOLUTE MAN 0.19 K/mm3 (0.00-0.68); EOSINOPHILS PERCENT MAN 1 % (0-6); LYMPHOCYTES ABSOLUTE MAN 2.09 K/mm3 (0.84-5.20); LYMPHOCYTES PERCENT MAN 11 % (21-46); METAMYELOCYTE ABSOLUTE MAN 0.38 K/mm3 (0.00-0.00); METAMYELOCYTE PERCENT MAN 2 % (0-0); MONOCYTES ABSOLUTE MAN 0.95 K/mm3 (0.16-1.47); MONOCYTES PERCENT MAN 5 % (4-13); MYELOCYTE ABSOLUTE MAN 0.76 K/mm3 (0.00-0.00); MYELOCYTE PERCENT MAN 4 % (0-0); SEG NEUTROPHILS PERCENT MAN 73 % (41-73); TOTAL CELLS COUNTED 100
--- NOTE | 2023-07-10 04:30 | NUR ---
NEW TUBE FEED HUNG NEW VITAL HP HUNG AT 0430 - INFUSING AT GOAL RATE
--- NOTE | 2023-07-10 05:36 | NUR ---
SHIFT SUMMARY PATIENT WOULD PERIODICALLY OPEN EYES TO VERBAL COMMANDS, COULD SQUEEZE MY HANDS, AND WOULD NOD YES OR NO TO ANSWER QUESTIONS APPROPRIATELY. SHE DENIED BEING IN ANY PAIN WHEN SHE WAS ABLE TO RESPOND TO QUESTIONS. PROPOFOL DECREASED TO 20 IN PREPARATION FOR POSSIBLE EXUBATION LATER TODAY. RHYTHM ON MONITOR THROUGHOUT SHIFT SHOWED ALTERNATIONS BETWEEN SINUS RHYTHM AND ATRIAL FIBRILLATION. HR 80'S-100'S. BP STABLE. PATIENT PLACED ON AC/PC . PLAN TO EXTUBATE LATER THIS AM IF APPROPRIATE. 1 LARGE BROWN BM THIS SHIFT. TEMP RANDLE REMAINS IN PLACE DRAINING CLEAR YELLOW URINE TO GRAVITY. MIDLINE TO ELENITA INFUSING HEPARIN AT 19 U/KG/HR, PROPOFOL AT 20 MCG/KG/MIN. WILL CONTINUE TO MONITOR AND REPORT TO ONCOMING NURSE.
--- NOTE | 2023-07-10 11:58 | NUR ---
EXTUBATION PT WITH SEDATION OFF AND TOLERATING PRESSURE SUPPORT OF 7/5, FIO2 40% WELL. PT ABLE TO FOLLOW COMMANDS. DR VAN AT BEDSIDE, GAVE THE OK FOR EXTUBATION. PT EXTUBATED BY RT GEORGE AT 1110. PT PLACED ON 4L O2 NC. PT WITH GOOD COUGH EFFORT. SPO2 >90%. FAMILY AT BEDSIDE. WILL CONTINUE TO MONITOR.
--- NOTE | 2023-07-10 14:02 | NUR ---
ASSISTING PRIMARY RN W PATIENT CARE. PT IN RESP DISTRESS WITH HEART RATE 150-160 (POSSIBLE AFIB), W HTN. RESP RATE 40'S, O2 HIGH 80'S. DR VAN AND RT AT BEDSIDE. INITIAL DOSE OF METOPROLOL 2.5MG GIVEN IV. SECOND DOSE GIVEN 10MIN LATER. PT NOW IN SINUS RHTHYM W RATE 90'S. BLOOD PRESSURE IMPROVING. PT ON BIPAP 12/10, PRESSURES INCREASED TO 15/11, FIO2 INCREASED TO 100%. STRIDOR NOTED, RACEPINEPHRINE GIVEN, WITHIN 2MIN, STRIDOR IMPROVED. AT BEDSIDE, PT AWAKE, NODS HEAD YES TO ABLE TO BREATH BETTER. FIO2 DECREASED TO 75%.
--- NOTE | 2023-07-10 14:28 | NUR ---
PT NOW SLEEPING ON BIPAP, DR VAN IN TO CHECK ON PT. REMAINS AT BEDESIDE. SATS 99% ON 75%FIO2. RESP RATE LOW 20'S. HR IMPROVED, PT REMAINS HYPERTENSIVE.
--- NOTE | 2023-07-10 15:04 | NUR ---
PT W LABORED RESP. RESP HIGH 20'S. PT C/O SOB. HEART RATE AROUND 100, SINUS. HTN AT 198/79. SAT INITIALY DROPPED TO 92%, AND ARE BACK UP TO 96%, RT NOTIFIED. LUNGS SOUND TIGHT. DR VAN CALLED. NEW ORDERS OBTAINED. METOPROLOL TO BE GIVEN
--- NOTE | 2023-07-10 15:21 | NUR ---
RT AT BEDSIDE, MASK READJUSTED. DUO NEB IN PROCESS VIA BIPAP. METOPROLOL 2.5MG FOLLOWED BY ANOTHER 2.5MG GIVEN. HEART RATE IMPROVING. SATS >95% ON 60%FIO2. PT REMAINED HYPERTENSIVE AFTER METOPROLOL. ORDERS TO GIVE HYDRALAZINE. PRIMARY RN UPDATED.
--- NOTE | 2023-07-10 16:23 | NUR ---
DR CARLOTA VAN NOTIFIED OF PT CONTINUED SEVERE LABORED RESPIRATIONS DESPITE SPO2 >90%. PT REMAINS ON BIPAP. PT STARTED ON PRECEDX GTT AT THIS TIME. WILL CONTINUE TO MONIOTOR.
[2023-07-10 17:15] LABS: Hematocrit 35.2 % (33.0-51.0); Hemoglobin 10.5 g/dL (11.5-16.0); Mean Corpuscular HGB 28.8 pg (26.0-34.0); Mean Corpuscular HGB Conc 29.8 g/dL (31.5-36.5); Mean Platelet Volume 10.7 fL (9.1-12.4); NRBC ABSOLUTE 0.38 K/mm3 (0.00-0.02); Platelet Count 653 K/mm3 (150-400); RDW Coefficient Variation 16.3 % (11.7-14.2); RDW Standard Deviation 56.4 fL (35.1-46.3); Red Blood Cell Count 3.64 M/mm3 (3.80-5.20)
[2023-07-10 17:20] LABS: Mean Corpuscular Volume 97 fL (80-100)
[2023-07-10 17:31] LABS: Alanine Aminotransfer (ALT/SGP 36 U/L (12-78); Albumin, Blood 2.6 g/dL (3.4-5.0); Albumin/Globulin Ratio 0.5 (0.8-1.8); Alk Phos 147 U/L (50-136); Anion Gap 6 mmol/L (6-16); Aspartate Aminotrans (AST/SGOT 26 U/L (12-37); Bilirubin, Total 0.4 mg/dL (0.1-1.0); Blood Urea Nitrogen 35 mg/dL (8-24); Bun/Creatinine Ratio 38.8 (12.0-20.0); CO2, Blood 27 mmol/L (21-32); Calcium, Blood 9.3 mg/dL (8.5-10.1); Chloride, Blood 114 mmol/L (98-108); Globulin, Blood 5.6 g/dL (2.2-4.0); Glomerular Filtration Rate 66 (60-); Glucose, Blood 418 mg/dL (70-99); Potassium, Blood 4.3 mmol/L (3.5-5.5); Sodium, Blood 147 mmol/L (136-145); Total Protein, Blood 8.2 g/dL (6.4-8.2); Vancomycin, Trough 16.2 ug/mL (5.0-10.0)
[2023-07-10 17:36] LABS: BAND PERCENT MAN 5 % (0-8); BASOPHILS PERCENT MAN 0 % (0-2); EOSINOPHILS ABSOLUTE MAN 0.39 K/mm3 (0.00-0.68); EOSINOPHILS PERCENT MAN 1 % (0-6); LYMPHOCYTES ABSOLUTE MAN 0.39 K/mm3 (0.84-5.20); LYMPHOCYTES PERCENT MAN 1 % (21-46); METAMYELOCYTE ABSOLUTE MAN 0.39 K/mm3 (0.00-0.00); METAMYELOCYTE PERCENT MAN 1 % (0-0); MONOCYTES ABSOLUTE MAN 1.19 K/mm3 (0.16-1.47); MONOCYTES PERCENT MAN 3 % (4-13); MYELOCYTE ABSOLUTE MAN 1.59 K/mm3 (0.00-0.00); MYELOCYTE PERCENT MAN 4 % (0-0); NEUTROPHILS ABSOLUTE MAN 35.91 K/mm3 (1.96-9.15); SEG NEUTROPHILS PERCENT MAN 85 % (41-73); TOTAL CELLS COUNTED 100
--- NOTE | 2023-07-10 17:54 | NUR ---
RE INTUBATION / SHIFT SUMMARY PT EXTUBATED THIS MORNING AND INITIALLY WAS PLACED ON 4L O2 NC AND TOLERATING WELL. PT DEVELOPED RESPIRATORY DISTRESS THROUGHOUT THIS AFTERNOON PROGRESSING TO NEEDING TO BE RE INTUBATED. SEE PREVIOUS NOTES FOR MORE INFO. PT RE INTUBATED AT [address] VAN AND RT DORIS AT BEDSIDE. PT MED WITH 50 MG PROPOFOL. 8.0 ETT PLACED WITH COLOR CHANGE NOTED AT 1705. BILAT BREATH SOUNDS AUSCULTATED. OGT PLACED AT THIS TIME. VENT SETTINGS PC 10/5, FIO2 55%, RR 16. OGT CLAMPED AT THIS TIME. PT SEDATED WITH PROPOFOL AT 50 MCG/KG/MIN AND FENTANYL STAMP CLASSIFIER 25 MCG/HR. PICC TO ELENITA REMAINS INTACT. HEPARIN GTT INFUSING AT 19 UNITS/KG/HR AND NS TKO. RANDLE TEMP PROBE REMAINS IN PLACE WITH LARGE VOLUME OF CLEAR YELLOW OUTPUT NOTED. SBW RESTRAINTS IN PLACE AT THIS TIME. PT SKIN COOL AND CLAMMY AT THIS TIME. VITAL SIGNS STABLE S/P REINTUBATION. PT SPOUSE AT BEDSIDE THROUGHOUT THE SHIFT. WILL CONTINUE TO MONITOR AND REPORT OFF TO ONCOMING RN.
[2023-07-10 18:07] LABS: PCO2 Arterial 39.2 mmHg (35-45); PO2 Arterial 64.9 mmHg (80-100); pH Blood Arterial 7.42 (7.35-7.45)
--- NOTE | 2023-07-10 19:29 | NUR ---
ASSUMED CARE OF PATIENT AT 1900. RECEIVED REPORT FROM ISAAC REINOSO. VSS STABLE AND NOT ACUTE NEEDS IDENTIFIED AT THIS TIME. SEE SHIFT ASSESS FOR FULL ASSESSMENT DETAILS.
--- NOTE | 2023-07-10 20:41 | NUR ---
TUBE FEED RESTARTED NEW BOTTLE OF VITAL HP HUNG AND STARTED AT 1930. INFUSING AT GOAL RATE OF 40mL/HR WITH 30mL FLUSHES Q4H.
[2023-07-11] VITALS (76 sets, daily range): BP systolic 107–169; BP diastolic 40–83
--- NOTE | 2023-07-11 00:27 | NUR ---
PATIENT EDUCATION ALTHOUGH PATIENT IS INTUBATED AND SEDATED, SHE IS STILL PROVIDED WITH VERBAL COMMUNICATION ON INTERVENTIONS THEY ARE BEING IMPLEMENTED
[2023-07-11 03:48] LABS: BASOPHILS ABSOLUTE AUTO 0.08 K/mm3 (0.00-0.23); BASOPHILS PERCENT AUTO 0 % (0-2); EOSINOPHILS ABSOLUTE AUTO 0.04 K/mm3 (0.00-0.68); EOSINOPHILS PERCENT AUTO 0 % (0-6); Hematocrit 30.3 % (33.0-51.0); Hemoglobin 9.3 g/dL (11.5-16.0); IMMATURE GRAN ABSOLUTE AUTO 1.25 K/mm3 (0.00-0.10); IMMATURE GRAN PERCENT AUTO 6 % (0-1); LYMPHOCYTES ABSOLUTE AUTO 2.84 K/mm3 (0.84-5.20); LYMPHOCYTES PERCENT AUTO 14 % (21-46); MONOCYTES ABSOLUTE AUTO 1.77 K/mm3 (0.16-1.47); MONOCYTES PERCENT AUTO 9 % (4-13); Mean Corpuscular HGB 29.1 pg (26.0-34.0); Mean Corpuscular HGB Conc 30.7 g/dL (31.5-36.5); Mean Corpuscular Volume 95 fL (80-100); NEUTROPHILS ABSOLUTE AUTO 14.41 K/mm3 (1.96-9.15); NEUTROPHILS PERCENT AUTO 71 % (41-73); NRBC ABSOLUTE 0.14 K/mm3 (0.00-0.02); NRBC Auto 0.7 /100 WBC (0.0-0.2); Platelet Count 438 K/mm3 (150-400); RDW Coefficient Variation 16.4 % (11.7-14.2); RDW Standard Deviation 54.8 fL (35.1-46.3); White Blood Cell Count 20.39 K/mm3 (4.00-11.30)
[2023-07-11 04:09] LABS: Bun/Creatinine Ratio 49.5 (12.0-20.0); Calcium, Blood 8.6 mg/dL (8.5-10.1); Creatinine, Blood 0.83 mg/dL (0.40-1.00); Magnesium, Blood 3.2 mg/dL (1.6-2.4); Phosphorus, Blood 4.4 mg/dL (2.5-4.9); Potassium, Blood 2.9 mmol/L (3.5-5.5)
--- NOTE | 2023-07-11 06:14 | NUR ---
SHIFT SUMMARY. PATIENT REMAINED INTUBATED AND SEDATED THROUGHOUT ENTIRETY OF SHIFT. PATIENT ALSO REMAINED AFEBRILE. SHE DID NOT FOLLOW ANY VERBAL COMMANDS, BUT WOULD MOVE HER LEGS WHEN THE BLANKET WAS LIFTED UP TO CHECK PEDAL PULSES, AND WOULD WITHDRAW FROM PAIN. SINUS RHYTHM AND ATRIAL FIBRILLATION SHOWN ON MONITOR. HR IN 80'S-90'S. BP STABLE. VENT SETTINGS A/C PC 10/5, RATE 16, FiO2 50%. O2 SATURATIONS > 92%. ETT SIZE 8.0, 23CM AT THE TEETH. TUBE FEEDS RESTARTED AT GOAL RATE OF 40mL/HR WITH 30mL FLUSH Q4H. ONE SMALL BROWN BM THIS SHIFT. BED BATH GIVEN. TEMP RANDLE IN PLACE DRAINING CLEAR YELLOW URINE TO GRAVITY. URINE OUTPUT < 100mL Q2H THROUGHOUT ENTIRETY OF SHIFT. MIDLINE TO PAPITO FLUSHES WELL AND DRAWS BLOOD. PROPOFOL INFUSING AT 40MCG/KG/MIN, HEPARIN INFUSING AT 17U/KG/HR. POTASSIUM CHLORIDE RUNNING WITH TKO AT 67.5mL/HR FOR LOW POTASSIUM OF 2.9. 2 DOSES TOTAL ORDERED PER HOSPITALIST. FENTANYL RUNNING AT 25MCG/HR. WILL CONTINUE TO MONITOR AND REPORT TO ONCOMING NURSE.
[2023-07-11 14:52] LABS: Magnesium, Blood 3.1 mg/dL (1.6-2.4); Potassium, Blood 4.1 mmol/L (3.5-5.5)
--- NOTE | 2023-07-11 17:34 | NUR ---
SHIFT SUMMARY NO EVENTS DURING SHIFT. PROPOFOL REMAINS AT 40 MCG/KG/MIN, FENTANYL @ 25 MCG/HR, HEPARIN @ 17 UNITS/KG/HR. PATIENT OPENS EYES, FOLLOWS COMMANDS, AND NODS HEAD "YES/NO" TO SIMPLE QUESTIONS. VENT SETTINGS A/C PC 10/5 45% RATE 16. TF WATER FLUSHES INCREASED TO 200ML Q4H DUE TO HYPERNATREMIA, BUT TF REMAINS AT GR 40ML/HR. PATIENT HAD ONE BM THIS SHIFT AND RANDLE CATHETER HAD ONE EPISODE OF LEAKING. H20 ADDED TO BALLOON WITH NO LEAKING SINCE. PATIENT'S AND SON VISITED TODAY AND WERE UPDATED ON PATIENT'S CONDITION AND PLAN OF CARE. NO OTHER CHANGES DURING SHIFT.
[2023-07-12] VITALS (44 sets, daily range): BP systolic 124–178; BP diastolic 42–76
[2023-07-12 04:33] LABS: Hematocrit 33.7 % (33.0-51.0); Hemoglobin 10.2 g/dL (11.5-16.0); Mean Corpuscular HGB Conc 30.3 g/dL (31.5-36.5); Mean Corpuscular Volume 96 fL (80-100); Mean Platelet Volume 10.7 fL (9.1-12.4); NRBC Auto 1.3 /100 WBC (0.0-0.2); Platelet Count 556 K/mm3 (150-400); RDW Coefficient Variation 17.2 % (11.7-14.2); RDW Standard Deviation 57.5 fL (35.1-46.3); Red Blood Cell Count 3.52 M/mm3 (3.80-5.20); White Blood Cell Count 22.65 K/mm3 (4.00-11.30)
[2023-07-12 04:52] LABS: Bun/Creatinine Ratio 49.6 (12.0-20.0); Calcium, Blood 8.7 mg/dL (8.5-10.1); Creatinine, Blood 0.73 mg/dL (0.40-1.00); Magnesium, Blood 3.3 mg/dL (1.6-2.4); Phosphorus, Blood 3.2 mg/dL (2.5-4.9); Potassium, Blood 3.5 mmol/L (3.5-5.5)
[2023-07-12 04:53] LABS: BAND PERCENT MAN 5 % (0-8); BASOPHILS PERCENT MAN 0 % (0-2); EOSINOPHILS PERCENT MAN 0 % (0-6); LYMPHOCYTES ABSOLUTE MAN 2.03 K/mm3 (0.84-5.20); LYMPHOCYTES PERCENT MAN 9 % (21-46); METAMYELOCYTE ABSOLUTE MAN 0.22 K/mm3 (0.00-0.00); METAMYELOCYTE PERCENT MAN 1 % (0-0); MONOCYTES ABSOLUTE MAN 1.81 K/mm3 (0.16-1.47); MONOCYTES PERCENT MAN 8 % (4-13); MYELOCYTE PERCENT MAN 4 % (0-0); NEUTROPHILS ABSOLUTE MAN 17.66 K/mm3 (1.96-9.15); SEG NEUTROPHILS PERCENT MAN 73 % (41-73); TOTAL CELLS COUNTED 100
--- NOTE | 2023-07-12 05:46 | NUR ---
SHIFT SUMMARY: Pt not following commands, but wakes to voice, makes eye contact, and nods head yes when asked questions. She is moving purposefully and spontaneously (all extremities). Jones leaked urine at 0500, irrigated with 20ml NS, then had greater than 500ml urine output in jones. Pt had CHG bath and linen change this morning. Propofol remains at 40, fentanyl WIRELESS CONSTRUCTION MANAGER at continuous rate of 25. Heparin at 17, no changes overnight. Now in sinus rhythm with rate in the 90s. Medicated with labetalol x1 and hydralazine x1 for SBP > 160 overnight.
--- NOTE | 2023-07-12 07:15 | NUR ---
CARE ASSUMPTION DURING BEDSIDE SHIFT REPORT WITH LAUREEN GRAY THE PT IS LYING IN BED INTUBATED ON THE VENTILATOR. PT'S EYES ARE OPEN AND SHE MAINTAIANS EYE CONTACT BUT DOES NOT FOLLOW ANY DIRECTIONS. PT'S MONITOR SHOWING SR 80'S. BP WNL AND STABLE. PT HAS PROPOFOL GTT AND FENTANYL LICENSED MASSAGE PRACTITIONER RUNNING. TF ARE CONNECTED TO THE PT'S OG TUBE AND RUNNING AT GOAL RATE. PT HAS RANDLE CATHETER THAT IS PATENT AND DRAINING YELLOW URINE W SIGNIFICANT AMOUNT OF SEDIMENT IN THE LINE.
[2023-07-12 08:57] LABS: Source, Urine Foley catheter
[2023-07-12 09:57] LABS: Appearance, Urine Clear (Clear); Bilirubin, Urine Neg (Neg); Blood, Urine 2+ (Neg); Color, Urine Yellow (P-Yellow); Glucose Qualitative, Urine 3+ (Neg); Ketones, Urine Neg (Neg); Leukocyte Esterase, Urine 2+ (Neg); Nitrite, Urine Neg (Neg); Protein, Urine Neg (Neg); Specific Gravity, Urine 1.005 (1.003-1.022); Urobilinogen, Urine NORM (Normal)
[2023-07-12 10:10] LABS: Bacteria Few /hpf
[2023-07-12 10:14] LABS: White Blood Cells, Urine 0-2 /hpf (0-5)
[2023-07-12 10:15] LABS: Squamous Epithelial Cells Rare /hpf (Few); Yeast/Fungi Urine Mod /hpf
[2023-07-12 15:07] LABS: Bun/Creatinine Ratio 44.5 (12.0-20.0); Calcium, Blood 8.1 mg/dL (8.5-10.1); Creatinine, Blood 0.72 mg/dL (0.40-1.00); Potassium, Blood 3.3 mmol/L (3.5-5.5)
[2023-07-12 17:52] LABS: Vancomycin, Trough 17.1 ug/mL (5.0-10.0)
--- NOTE | 2023-07-12 17:55 | NUR ---
DAY SHIFT SUMMARY PT HAS MAINTAINED A RASS OF -1 THIS SHIFT W PROPOFOL AT 40 AND FENTANYL HOSTEL PARENT RUNNING AT 25MCG/HR. PT HAS BEEN AWAKE NODDING HER HEAD TO ANSWER QUESTIONS APPROPRIATELY. PT BEGAN THE SHIFT VERY WITHDRAWN BUT THE DAY PROGRESSED SHE WAS MUCH MORE INTERACTIVE W CARE AND FOLLOWING COMMANDS. PT'S MONITOR HAS SHOWN SR 70'S- 80'S THIS SHIFT. BP HAS REMAINED WNL AND STABLE BUT NOTED SHE DOES HAVE WIDE PULSE PRESSURE W OCCASIONAL DBP IN THE 40'S. PT AFEBRILE THIS SHIFT. PT'S RANDLE CATHETER CHANGED AT THE START OF THE SHIFT HER INITIAL CATHETER HAD A SIGNIFICANT AMOUNT OF SEDIMENT CLOGGING THE CATHETER. PT HAS HAD GOOD URINE OUTPUT THIS SHIFT, SEE I&O'S FOR DETAILS. PT'S FREE WATER FLUSHES CHANGED TO 200ML Q2H. PT'S BLODD SUGAR STABLE IN THE MID 200'S THIS SHIFT. SPO2 >94% THIS SHIFT ON VENT W AC W PC OF 10 AND 50% FIO2. WILL REPORT TO ONCOMING RN.
--- NOTE | 2023-07-12 19:15 | NUR ---
ASSUMPTION OF CARE PT IS INTUBATED VIA ETT, INTACT AND PATENT TO THE VENT. BILATERAL BREATH SOUNDS PRESENT. OXYGEN SAT 97% AT THIS TIME W/NO S/S OF ACUTE RESP DISTRESS. PT HAS EYES OPEN BUT NOT FOLLOWING COMMANDS. PROPOFOL IS INFUSING FOR SEDATION AND FENTANYL ADJUCT FOR PAIN IS INFUSING WELL PER MD ORDER. HEPARIN GTT AT 16U/HR. TF INFUSING AT GOAL. RANDLE CATH INTACT PATENT AND DRAINING CLEAR YELLOW URINE AT THIS TIME. PT IS SR ON THE TROLLEY CAR OPERATOR. BP WNL. BEDSIDE REPORT COMPLETED W/ISMAEL GRAY.
[2023-07-13] VITALS (63 sets, daily range): BP systolic 123–172; BP diastolic 42–65
[2023-07-13 04:52] LABS: Hematocrit 27.2 % (33.0-51.0); Hemoglobin 8.1 g/dL (11.5-16.0); Mean Corpuscular HGB 28.7 pg (26.0-34.0); Mean Corpuscular HGB Conc 29.8 g/dL (31.5-36.5); Mean Corpuscular Volume 97 fL (80-100); Mean Platelet Volume 10.7 fL (9.1-12.4); NRBC ABSOLUTE 0.07 K/mm3 (0.00-0.02); NRBC Auto 0.6 /100 WBC (0.0-0.2); Platelet Count 410 K/mm3 (150-400); RDW Coefficient Variation 17.1 % (11.7-14.2); RDW Standard Deviation 59.6 fL (35.1-46.3); Red Blood Cell Count 2.82 M/mm3 (3.80-5.20); White Blood Cell Count 12.52 K/mm3 (4.00-11.30)
[2023-07-13 05:03] LABS: Bun/Creatinine Ratio 37.4 (12.0-20.0); Calcium, Blood 7.9 mg/dL (8.5-10.1); Creatinine, Blood 0.7 mg/dL (0.40-1.00); Magnesium, Blood 2.9 mg/dL (1.6-2.4); Potassium, Blood 3.3 mmol/L (3.5-5.5)
[2023-07-13 05:27] LABS: BAND PERCENT MAN 7 % (0-8); BASOPHILS PERCENT MAN 0 % (0-2); EOSINOPHILS ABSOLUTE MAN 0.12 K/mm3 (0.00-0.68); EOSINOPHILS PERCENT MAN 1 % (0-6); LYMPHOCYTES ABSOLUTE MAN 1.37 K/mm3 (0.84-5.20); LYMPHOCYTES PERCENT MAN 11 % (21-46); MONOCYTES ABSOLUTE MAN 0.62 K/mm3 (0.16-1.47); MONOCYTES PERCENT MAN 5 % (4-13); MYELOCYTE ABSOLUTE MAN 0.25 K/mm3 (0.00-0.00); MYELOCYTE PERCENT MAN 2 % (0-0); NEUTROPHILS ABSOLUTE MAN 10.14 K/mm3 (1.96-9.15); SEG NEUTROPHILS PERCENT MAN 74 % (41-73); TOTAL CELLS COUNTED 100
--- NOTE | 2023-07-13 06:27 | NUR ---
SHIFT SUMMERY PT REMAINS INTUBATED AND SEDATED. PT HAS BEEN SR ON THE GENERAL OFFICE ASSOCIATE, BP WNL. PROPOFOL AND FENTANYL INFUSING FOR SEDATION/COMFORT. TF INFUSING AT GOAL. RANDLE CATH DRAINING YELLOW URINE. THERE HAVE BEEN NO ACUTE CHANGES OVERNIGHT.
--- NOTE | 2023-07-13 18:25 | NUR ---
DAY SHIFT SUMMARY PT BEGAN SHIFT W NO CHANGES STILL INTUBATED ON THE VENTILATOR AC W PRESSURE SUPPORT OF 10 PEEP OF 5.0 W 45% FIO2 MAINTAINING SPO2 >94%. PT DID HAVE BEDSIDE TRACHEOSTOMY THIS SHIFT BY DR. LARES AND DR. PRUETT, PROCEDURE WENT WELL W/O COMPLICATIONS AND PT HAS REMAINED ON THE VENTILATOR CONNECTED TO HER TRACH SINCE THE PROCEDURE. MONITOR HAS SHOWN SR 60'S THIS SHIFT BUT WAS SR 90'S DURING THE PROCEDURE. BP STABLE, PT MAINTAINS WIDE PULSE PRESSURE W DBP IN THE 40'S AT TIMES. PT AFEBRILE THIS SHIFT. PT HAD DOBHOFF PLACED AFTER TRACH PLACEMENT AND TF RESUMED AT ORIGINAL RATE. CBG'S STABLE THIS SHIFT, BOTH DOSES OF NPH HELD DUE TO NPO STATUS. PER DR. PRUETT THE HEPARIN W BE ON HOLD 24 HOURS AFTER THE TRACHEOSTOMY. ALSO PER DR. PRUETT SHE WANTS THE PT IN DEEP SEDATION FOR NEXT 24 HOURS AFTER TRACHEOSTOMY. PT IS CURRENTLY LYING IN BED RESPONDING TO PAINFUL STIMULI BUT APPEARS COMFORTABLE W MINIMAL BLOODY DRAINAGE FROM NEW TRACH SITE. WILL REPORT TO ONCOMING RN.
--- NOTE | 2023-07-13 19:30 | NUR ---
ASSUMPTION OF CARE PT HAD A #6 SHILEY CUFFED NON-FENESTRATED TRACH PLACED AT BEDSIDE DURING PRIOR SHIFT BY DR LARES. PT REPORTED TO HAVE TOLERATED PROCEDURE WELL. AT THE CURRENT TIME, MINIMAL BLEEDING IS NOTED AROUND TRACH INSERTION SITE. PT IS VENTILATED AND SEDATED. DR PRUETT HAS BEEN AT BEDSIDE. PROPOFOL AND FENTANYL DRIPS ARE INFUSING, PRNS AVAILABLE TO KEEP PT SEDATED POST PROCEDURE PER MD ORDERS. PT IS SR ON THE ENERGY EFFICIENT SITE MANAGER, BP WNL. DOBHOFF FEEDING TUBE PLACED ON PRIOR SHIFT, TF INFUSING AT GOAL. RANDLE CATH INTACT PATENT AND DRAINING TO GRAVITY. PT IS AFEBRILE AT THIS TIME.
[2023-07-14] VITALS (91 sets, daily range): BP systolic 121–173; BP diastolic 47–69
[2023-07-14 04:43] LABS: BASOPHILS ABSOLUTE AUTO 0.03 K/mm3 (0.00-0.23); BASOPHILS PERCENT AUTO 0 % (0-2); EOSINOPHILS ABSOLUTE AUTO 0.05 K/mm3 (0.00-0.68); EOSINOPHILS PERCENT AUTO 0 % (0-6); Hematocrit 27.1 % (33.0-51.0); Hemoglobin 8.3 g/dL (11.5-16.0); IMMATURE GRAN ABSOLUTE AUTO 0.41 K/mm3 (0.00-0.10); IMMATURE GRAN PERCENT AUTO 4 % (0-1); LYMPHOCYTES ABSOLUTE AUTO 1.51 K/mm3 (0.84-5.20); LYMPHOCYTES PERCENT AUTO 13 % (21-46); MONOCYTES ABSOLUTE AUTO 0.55 K/mm3 (0.16-1.47); MONOCYTES PERCENT AUTO 5 % (4-13); Mean Corpuscular HGB 29.3 pg (26.0-34.0); Mean Corpuscular HGB Conc 30.6 g/dL (31.5-36.5); Mean Corpuscular Volume 96 fL (80-100); Mean Platelet Volume 10.7 fL (9.1-12.4); NEUTROPHILS ABSOLUTE AUTO 9.24 K/mm3 (1.96-9.15); NEUTROPHILS PERCENT AUTO 78 % (41-73); NRBC ABSOLUTE 0.04 K/mm3 (0.00-0.02); NRBC Auto 0.3 /100 WBC (0.0-0.2); Platelet Count 375 K/mm3 (150-400); RDW Standard Deviation 55.6 fL (35.1-46.3); Red Blood Cell Count 2.83 M/mm3 (3.80-5.20); White Blood Cell Count 11.79 K/mm3 (4.00-11.30)
[2023-07-14 04:58] LABS: Bun/Creatinine Ratio 33.8 (12.0-20.0); Calcium, Blood 8.3 mg/dL (8.5-10.1); Creatinine, Blood 0.68 mg/dL (0.40-1.00); Potassium, Blood 4.7 mmol/L (3.5-5.5)
--- NOTE | 2023-07-14 05:47 | NUR ---
SHIFT SUMMERY PT REMAINS INTUBATED VIA TRACH, MINIMAL BLOODY DRAINAGE NOTED FROM NEW TRACH SITE OVERNIGHT. PT IS ON A PROPOFOL AND FENTANYL DRIAP. DOBHOFF TUBE INTACT W/TF INFUSING AT GOAL. PT IS TOLERATING WELL. PT WILL OPEN EYES SPONTANEOUSLY. SHE HAS BEEN SR ON THE CARDIAC MONTIOR W/BP WNL. RANDLE CATH INTACT PATENT AND DRAINING TO GRAVITY. THERE HAVE BEEN NO ACUTE CHANGES OVERNIGHT.
--- NOTE | 2023-07-14 07:15 | NUR ---
CARE ASSUMPTION DURING BEDSIDE SHIFT REPORT THE PT IS SITTING SEMI-FOWLERS POSITION IN BED W VENTILATOR ATTACHED TO TRACH. PT APPEARS IN NO DISTRESS. PT AROUSES TO LIGHT TOUCH. MONITOR SHOWING SR 70'S. BP WNL AND STABLE. PT'S TEMP AT 100.2, TYLENOL GIVEN SHORTLY AFTER REPORT FROM RYLAN GRAY. SPO2 >94% ON VENT AC W PC OF 10 PEEP OF 5.0 AND 40% FIO2. AT BEDSIDE.
[2023-07-14 17:46] LABS: Vancomycin, Trough 14.7 ug/mL (5.0-10.0)
--- NOTE | 2023-07-14 18:10 | NUR ---
DAY SHIFT SUMMARY PT BEGAN SHIFT SEDATED ON VENTILATOR CONNECTED TO TRACH. PT WAS PLACED ON SPONTANEOUS MODE W PRESSURE SUPPORT OF 7 PEEP OF 5.0 AND 40% FIO2 WHERE SHE REMAINED THE REST OF THE DAY. PT'S PROPOFOL AT 30 ALL SHIFT UNTIL THIS AFTERNOON WHERE THE PT WAS ABLE NOD YES TO HAVING SEVERE ANXIETY, PT AT THIS TIME APPEARED VERY DISTRESSED SO PROPOFOL WAS TURNED UP TO 40 AND 1MG ATIVAN WAS GIVEN WHICH RELIEVED HER SYMPTOM. PT REMAINS ON SPONTANEOUS VENT SETTINGS W NO APNEA ALARMS AND GOOD TIDAL VOLUMES. PT'S BP MILDLY ELEVATED THIS SHIFT W SBP'S IN THE 160'S. PT'S PEAK TEMP WAS 100.2 THIS AM AND WAS GIVEN TYLENOL W GOOD IMPROVEMENT. PT'S MONITOR SHOWING SR 70'S- 80'S THIS SHIFT. PT'S RANDLE PATENT AND DRAINING 1600ML CLEAR YELLOW URINE THIS SHIFT. PT HAD 2 BM'S THIS SHIFT. PT'S MENTATION HAS BEEN ALERT AND ANSWERING QUESTIONS BY NODDING HEAD YES OR NO ALL SHIFT. PT'S AT BEDSIDE ALL SHIFT. HEPARIN GTT RESTARTED AT 1730 THIS SHIFT. WILL REPORT TO ONCOMING RN.
[2023-07-15] VITALS (76 sets, daily range): BP systolic 91–188; BP diastolic 43–82
[2023-07-15 02:38] LABS: BASOPHILS ABSOLUTE AUTO 0.04 K/mm3 (0.00-0.23); BASOPHILS PERCENT AUTO 0 % (0-2); EOSINOPHILS ABSOLUTE AUTO 0.02 K/mm3 (0.00-0.68); EOSINOPHILS PERCENT AUTO 0 % (0-6); Hematocrit 31.1 % (33.0-51.0); Hemoglobin 9.3 g/dL (11.5-16.0); IMMATURE GRAN ABSOLUTE AUTO 0.67 K/mm3 (0.00-0.10); IMMATURE GRAN PERCENT AUTO 5 % (0-1); LYMPHOCYTES ABSOLUTE AUTO 2.18 K/mm3 (0.84-5.20); LYMPHOCYTES PERCENT AUTO 17 % (21-46); MONOCYTES ABSOLUTE AUTO 1.05 K/mm3 (0.16-1.47); MONOCYTES PERCENT AUTO 8 % (4-13); Mean Corpuscular HGB 28.3 pg (26.0-34.0); Mean Corpuscular HGB Conc 29.9 g/dL (31.5-36.5); Mean Corpuscular Volume 95 fL (80-100); Mean Platelet Volume 11.2 fL (9.1-12.4); NEUTROPHILS ABSOLUTE AUTO 8.85 K/mm3 (1.96-9.15); NEUTROPHILS PERCENT AUTO 69 % (41-73); NRBC ABSOLUTE 0.04 K/mm3 (0.00-0.02); NRBC Auto 0.3 /100 WBC (0.0-0.2); Platelet Count 412 K/mm3 (150-400); RDW Coefficient Variation 15.6 % (11.7-14.2); RDW Standard Deviation 53.3 fL (35.1-46.3); Red Blood Cell Count 3.29 M/mm3 (3.80-5.20); White Blood Cell Count 12.81 K/mm3 (4.00-11.30)
[2023-07-15 02:44] LABS: Albumin, Blood 2.3 g/dL (3.4-5.0); Anion Gap 7 mmol/L (6-16); Blood Urea Nitrogen 25 mg/dL (8-24); Bun/Creatinine Ratio 43.3 (12.0-20.0); CO2, Blood 25 mmol/L (21-32); Calcium, Blood 8.8 mg/dL (8.5-10.1); Chloride, Blood 114 mmol/L (98-108); Creatinine, Blood 0.58 mg/dL (0.40-1.00); Glomerular Filtration Rate 94 (60-); Glucose, Blood 247 mg/dL (70-99); Phosphorus, Blood 4.2 mg/dL (2.5-4.9); Potassium, Blood 3.5 mmol/L (3.5-5.5); Sodium, Blood 146 mmol/L (136-145)
--- NOTE | 2023-07-15 06:49 | NUR ---
SHIFT SUMMERY PT S/P TRACH ON VENT. PT WAS PLACED BACK ON AC/PC OVERNIGHT BUT IS NOW BACK ON SPONTANEOUS MODE AND TOLERATING WELL. PT IS DROWSY BUT OPENS EYES INDEPENDENTLY AND CAN FOLLOW SIMPLE COMMANDS. SHE IS ON PROPOFOL AND FENTANYL DRIPS. SHE HAS BEEN SR ON THE SANDING SUPERVISOR W/BP WNL. SHE HAS BEEN AFEBRILE. RANDLE CATH INTACT AND DRAINING YELLOW URINE. DOBHOFF IN PLACE W/TF AT GOAL. PT HAD LARGE BM LAST NIGHT. NO ACUTE DISTRESS OR CHANGES OVERNIGHT.
--- NOTE | 2023-07-15 18:45 | NUR ---
SHIFT SUMMARY PATIENT WAS ON TRACH COLLAR TWICE TODAY FOR ABOUT HALF THE DAY. PROPOFOL TITRATED OFF. FENTANYL REMAINS AT 25 MCG/HR AND HEPARIN @ 16 UNITS/KG/HR. PATIENT REQUIRED ONE DOSE OF ATIVAN 1MG IV PUSH AND TWO DOSES OF FENTANYL 50 MCG IV PUSH. NORCO 7.5-325MG PT Q6H PRN ORDERED BY DR. OSBORN TO ASSIST WITH PAIN MANAGEMENT. RANDLE REMOVED THIS SHIFT DUE TO LEAKING. PUREWICK IN PLACE. PATIENT HAD A TOTAL OF 1L URINE OUT AND MULTIPLE SOFT/LOOSE BM. TF REMAINS AT GR 40ML/HR WITH 200ML Q4H WATER FLUSHES. VSS AND SINUS RHYTHM T/O SHIFT. NO OTHER CHANGES DURING SHIFT.
[2023-07-16] VITALS (20 sets, daily range): BP systolic 140–181; BP diastolic 50–77
[2023-07-16 03:54] LABS: Hematocrit 32.2 % (33.0-51.0); Hemoglobin 9.8 g/dL (11.5-16.0); Mean Corpuscular HGB 28.3 pg (26.0-34.0); Mean Corpuscular HGB Conc 30.4 g/dL (31.5-36.5); Mean Corpuscular Volume 93 fL (80-100); Mean Platelet Volume 11.2 fL (9.1-12.4); NRBC ABSOLUTE 0.05 K/mm3 (0.00-0.02); NRBC Auto 0.3 /100 WBC (0.0-0.2); Platelet Count 481 K/mm3 (150-400); RDW Coefficient Variation 15.7 % (11.7-14.2); RDW Standard Deviation 53.1 fL (35.1-46.3); Red Blood Cell Count 3.46 M/mm3 (3.80-5.20); White Blood Cell Count 15.22 K/mm3 (4.00-11.30)
[2023-07-16 04:33] LABS: BASOPHILS PERCENT MAN 0 % (0-2); EOSINOPHILS PERCENT MAN 0 % (0-6); LYMPHOCYTES ABSOLUTE MAN 1.21 K/mm3 (0.84-5.20); LYMPHOCYTES PERCENT MAN 8 % (21-46); METAMYELOCYTE PERCENT MAN 2 % (0-0); MONOCYTES PERCENT MAN 2 % (4-13); MYELOCYTE PERCENT MAN 2 % (0-0); NEUTROPHILS ABSOLUTE MAN 13.08 K/mm3 (1.96-9.15); SEG NEUTROPHILS PERCENT MAN 86 % (41-73); TOTAL CELLS COUNTED 100
[2023-07-16 05:24] LABS: Albumin, Blood 2.4 g/dL (3.4-5.0); Blood Urea Nitrogen 27 mg/dL (8-24); Bun/Creatinine Ratio 48.5 (12.0-20.0); CO2, Blood 24 mmol/L (21-32); Calcium, Blood 8.9 mg/dL (8.5-10.1); Creatinine, Blood 0.56 mg/dL (0.40-1.00); Glomerular Filtration Rate 95 (60-); Glucose, Blood 311 mg/dL (70-99); Phosphorus, Blood 4.5 mg/dL (2.5-4.9)
--- NOTE | 2023-07-16 05:58 | NUR ---
SHIFT SUMMERY PT HAS BEEN ANXIOUS/AGITATED OVERNIGHT, REQUIRING SOFT WRIST RESTRAINTS TO PROTECT HER FROM DAMAGING HER TRACHEOSTOMY. SHE IS ON PS ON THE VENT, SPONTANEOUS. OXYGEN SAT HAVE REMAINED >90%. SHE HAS HAD A MODERATE AMOUNT OF SECRETIONS. SHE HAS FENTANYL INFUSING AT 25MCGS/HR. TF INFUSING AT GOAL VIA DOBHOFF TUBE. SHE IS ORIENTED X 2, ABLE TO [place]COSTA.
[2023-07-16 15:43] LABS: Anion Gap 5 mmol/L (6-16); Chloride, Blood 111 mmol/L (98-108); Sodium, Blood 140 mmol/L (136-145)
--- NOTE | 2023-07-16 18:51 | NUR ---
SHIFT SUMMARY PATIENT REMAINED ON TRACH COLLAR T/O SHIFT WITH SPO2 GREATER THAN 90%. PLACED BACK ON VENT NOW BY RT. DUE TO PATIENT SPO2 DROPPING TO 84%. PATIENT REQUIRED ONE DOSE OF LABETALOL 20MG IV FOR TACHYCARDIA 130'S-140'S AND HTN WITH SBP 180'S AND MAPS GREATER THAN 110. HR NOW 100'S-110'S AND SPO2 MID 90'S. MEDICATED FOR PAIN MULTIPLE TIMES T/O SHIFT PER EMAR. FENTANYL SHAREMILKER DC'D AND HOME MORPHINE PT STARTED. MEDICATED FOR ANXIETY AFTER DISCUSSING BEING UP TO CHAIR PER EMAR. NO OTHER CHANGES DURING SHIFT.
[2023-07-17] VITALS (23 sets, daily range): BP systolic 120–196; BP diastolic 42–70
[2023-07-17 05:30] LABS: BASOPHILS ABSOLUTE AUTO 0.04 K/mm3 (0.00-0.23); BASOPHILS PERCENT AUTO 0 % (0-2); EOSINOPHILS ABSOLUTE AUTO 0.33 K/mm3 (0.00-0.68); EOSINOPHILS PERCENT AUTO 3 % (0-6); Hematocrit 29.4 % (33.0-51.0); Hemoglobin 9.2 g/dL (11.5-16.0); IMMATURE GRAN ABSOLUTE AUTO 0.52 K/mm3 (0.00-0.10); IMMATURE GRAN PERCENT AUTO 4 % (0-1); LYMPHOCYTES ABSOLUTE AUTO 2.34 K/mm3 (0.84-5.20); LYMPHOCYTES PERCENT AUTO 19 % (21-46); MONOCYTES ABSOLUTE AUTO 0.92 K/mm3 (0.16-1.47); MONOCYTES PERCENT AUTO 7 % (4-13); Mean Corpuscular HGB 28.7 pg (26.0-34.0); Mean Corpuscular HGB Conc 31.3 g/dL (31.5-36.5); Mean Corpuscular Volume 92 fL (80-100); Mean Platelet Volume 10.6 fL (9.1-12.4); NEUTROPHILS ABSOLUTE AUTO 8.39 K/mm3 (1.96-9.15); NEUTROPHILS PERCENT AUTO 67 % (41-73); NRBC ABSOLUTE 0.05 K/mm3 (0.00-0.02); NRBC Auto 0.4 /100 WBC (0.0-0.2); Platelet Count 462 K/mm3 (150-400); RDW Coefficient Variation 15.7 % (11.7-14.2); RDW Standard Deviation 52.8 fL (35.1-46.3); Red Blood Cell Count 3.21 M/mm3 (3.80-5.20); White Blood Cell Count 12.54 K/mm3 (4.00-11.30)
[2023-07-17 06:02] LABS: Albumin, Blood 2.2 g/dL (3.4-5.0); Anion Gap 6 mmol/L (6-16); Blood Urea Nitrogen 28 mg/dL (8-24); Bun/Creatinine Ratio 50.8 (12.0-20.0); CO2, Blood 24 mmol/L (21-32); Calcium, Blood 8.4 mg/dL (8.5-10.1); Chloride, Blood 112 mmol/L (98-108); Creatinine, Blood 0.55 mg/dL (0.40-1.00); Glomerular Filtration Rate 95 (60-); Glucose, Blood 223 mg/dL (70-99); Phosphorus, Blood 3.4 mg/dL (2.5-4.9); Sodium, Blood 142 mmol/L (136-145)
--- NOTE | 2023-07-17 06:21 | NUR ---
PATIENT ALERT AND ABLE TO NOD APPROPRIATELY TO SIMPLE QUESTIONS. EXTREMELY ANXIOUS, REQUIRING SEVERAL PRN DOSES OF ATIVAN. SR WITH STABLE BP. PLACED ON VENTILATOR OVERNIGHT PS 7/5 30%. DOBHOFF WITH TF AT GOAL RATE. LARGE BOWEL MOVEMENT. PUREWICK IN PLACE.
--- NOTE | 2023-07-17 10:06 | NUR ---
UP TO CHAIR PATIENT IS UP TO CHAIR USING THE LIFT WITH THE ASSISTANCE OF RT. PATIENT TOLERATED WELL. TRACH COLLAR IN PLACE ON 30% FIO2 WITH SPO2 LOW 90'S. MEDICATED WITH FENTANYL 50MCG IV AFTER TRANSFERRING TO CHAIR FOR PAIN. PATIENT IS SITTING UP IN CHAIR NOW WITH EYES CLOSED AND AT BEDSIDE.
--- NOTE | 2023-07-17 18:23 | NUR ---
SHIFT SUMMARY PATIENT WAS UP TO CHAIR FROM 0930 TO 1730 AND ON TRACH COLLAR T/O SHIFT. CURRENTLY ON 35% FIO2 WITH SPO2 LOW TO MID 90'S. PATIENT WAS ABLE TO COUGH AND CLEAR SOME SECRETIONS FROM TRACH. RECTAL TUBE PLACED FOR MULTIPLE LIQUID DIARRHEA EPISODES AND PUREWICK CHANGED MULTIPLE TIMES. TOTAL OF 800ML URINE OUT. PATIENT PARTICIPATED WITH PT AND OT TODAY. PATIENT AT BEDSIDE ALL SHIFT AND SON AT BEDSIDE NOW. NO ACUTE EVENTS THIS SHIFT.
--- NOTE | 2023-07-17 19:52 | NUR ---
ASSUMED CARE OF PATIENT AT 1900. REPORT RECEIVED FROM JUAREZ GRAY. VSS AND NO ACUTE NEEDS IDENTIFIED AT THIS TIME. SEE SHIFT ASSESS FOR FULL ASSESSMENT DETAILS.
[2023-07-18] VITALS (38 sets, daily range): BP systolic 127–193; BP diastolic 47–90
[2023-07-18 03:47] LABS: Hematocrit 30.8 % (33.0-51.0); Hemoglobin 9.5 g/dL (11.5-16.0); Mean Corpuscular HGB 27.7 pg (26.0-34.0); Mean Corpuscular HGB Conc 30.8 g/dL (31.5-36.5); Mean Corpuscular Volume 90 fL (80-100); Mean Platelet Volume 10.3 fL (9.1-12.4); NRBC ABSOLUTE 0.05 K/mm3 (0.00-0.02); NRBC Auto 0.4 /100 WBC (0.0-0.2); Platelet Count 435 K/mm3 (150-400); RDW Coefficient Variation 15.7 % (11.7-14.2); RDW Standard Deviation 51.4 fL (35.1-46.3); Red Blood Cell Count 3.43 M/mm3 (3.80-5.20); White Blood Cell Count 13.79 K/mm3 (4.00-11.30)
[2023-07-18 04:06] LABS: Albumin, Blood 2.4 g/dL (3.4-5.0); Anion Gap 3 mmol/L (6-16); Blood Urea Nitrogen 21 mg/dL (8-24); CO2, Blood 27 mmol/L (21-32); Calcium, Blood 8.8 mg/dL (8.5-10.1); Chloride, Blood 112 mmol/L (98-108); Creatinine, Blood 0.54 mg/dL (0.40-1.00); Glomerular Filtration Rate 95 (60-); Glucose, Blood 192 mg/dL (70-99); Phosphorus, Blood 2.8 mg/dL (2.5-4.9); Potassium, Blood 3.4 mmol/L (3.5-5.5); Sodium, Blood 142 mmol/L (136-145)
[2023-07-18 04:19] LABS: BASOPHILS PERCENT MAN 0 % (0-2); EOSINOPHILS PERCENT MAN 0 % (0-6); LYMPHOCYTES ABSOLUTE MAN 2.06 K/mm3 (0.84-5.20); LYMPHOCYTES PERCENT MAN 15 % (21-46); METAMYELOCYTE ABSOLUTE MAN 0.27 K/mm3 (0.00-0.00); METAMYELOCYTE PERCENT MAN 2 % (0-0); MONOCYTES PERCENT MAN 8 % (4-13); MYELOCYTE ABSOLUTE MAN 0.41 K/mm3 (0.00-0.00); MYELOCYTE PERCENT MAN 3 % (0-0); NEUTROPHILS ABSOLUTE MAN 9.92 K/mm3 (1.96-9.15); SEG NEUTROPHILS PERCENT MAN 72 % (41-73); TOTAL CELLS COUNTED 100
--- NOTE | 2023-07-18 05:33 | NUR ---
SHIFT SUMMARY PATIENT REMAINED ALERT THROUGHOUT ENTIRETY OF SHIFT. SHE WAS ORIENTED TO PERSON, AND COULD SHAKE HER HEAD YES/NO APPROPRIATELY TO ANSWER QUESTIONS AND FOLLOW SOME VERBAL COMMANDS, BUT WAS UNABLE VERBALIZE ANY NEEDS. SHE DECLINED TO USE COMMUNICATION BOARD DURING PERIODS OF INABILITY TO VERBALIZE NEEDS. BP REMAINED STABLE THROUGHOUT ENTIRETY OF SHIFT. MONITOR SHOWED SR AND SINUS TACHY WITH HR IN 90'S-100'S. REMAINED ON TRACH COLLAR ALL SHIFT, FiO2 AT 35% WITH O2 SATURATIONS IN 90'S. INNER CANNULA CHANGED BY RT 07/17/23. CODY HAS EVALUATED PATIENT. DOBHOFF IN PLACE, PIVOT INFUSING AT GOAL RATE. RECTAL TUBE IN PLACE FOR LIQUID STOOLS. RANDLE REMOVED 07/17/23 AM; PUREWICK PLACED AND DRAINING DARK YELLOW URINE. PIV TO RAC FLUSHES WELL, MIDLINE TO ELENITA FLUSHES WELL - NO MEDS INFUSING AT THIS TIME. WILL CONTINUE TO MONITOR AND REPORT TO ONCOMING NURSE.
--- NOTE | 2023-07-18 18:40 | NUR ---
SUMMARY PT RESTING IN BED. RESPONDING TO QUESTIONS APPROPRIATELY AND GETTING BETTER AT MOUTHING WORDS. UP TO CHAIR FOR A COUPLE HOURS TODAY BEFORE GETTING TIRED. WORKED WITH PHYSICAL THERAPY AND OT. PT IS GETTING STRONGER AND CONSTANTLY DOING EXCERSIZES THAT PHYSICAL THERAPY GAVE HER. ALSO SHIFTS HERSELF AROUND IN BED FREQUENTLY. FLUSH ON TF TURNED DOWN TODAY. PT TOLERATING TF WELL. ST SAW PT AND SUGGESTS KEEPING STRICT NPO FOR NOW. FREQUENTLY GIVING SWABS AND MOUTH MOISTURIZER. OVERALL GOOD DAY TODAY.
--- NOTE | 2023-07-18 19:40 | NUR ---
ASSUMED CARE PT IS RESTING QUIETLY; SPO2 >92%; MAP >65 SYSTOLICS IN THE 160'S (TREATING PER EMAR); NSR. PT DENIES CP, SOB, OR NAUSEA. COMMUNICATES WELL W/ NODDING/SHAKING OF HEAD. APPEARS TO BE ORIENTED X3-4. NODS HEAD WHEN ASKED IF PT IS DOING OK.
--- NOTE | 2023-07-18 21:00 | NUR ---
UPDATE PT BEGAN TO DESAT INTO THE 80'S; WENT INTO PT'S ROOM TO FIND PT HAD PULLED OXYGEN AWAY FROM TRACHEA AND WAS REACHING FOR DOBHOFF. REPOSITIONED OXYGEN AND EDUCATED PT ON IMPORTANCE OF KEEPING OXYGEN AND DOBHOFF IN PLACE. WAS ABLE TO DISCERN THAT PT WAS EXPERIENCING DISCOMFORT D/T HEAT. RT CALLED AND OXYGEN SWITCHED TO NON-INVASIVE. PT NODDED YES WHEN ASKING IF PT UNDERSTOOD EDUCATION. (ASKED PT SEVERAL QUESTIONS THAT WOULD REQUIRE HER TO SAY NO; PT APPEARS TO BE COMMUNICATING APPROPRIATELY AND COMPREHENDING WHAT THIS RN IS SAYING.).
--- NOTE | 2023-07-18 21:09 | NUR ---
UPDATE CALLED DR ELLISON D/T PT GOING INTO AFIB RVR; ORDER FOR IV METOPROLOL AT 2130 IF BP MAINTAINS (D/T PREVIOUS ADMINISTRATION OF HYDRALAZINE).
[2023-07-19] VITALS (31 sets, daily range): BP systolic 128–186; BP diastolic 52–86
[2023-07-19 03:39] LABS: BASOPHILS ABSOLUTE AUTO 0.11 K/mm3 (0.00-0.23); BASOPHILS PERCENT AUTO 1 % (0-2); EOSINOPHILS ABSOLUTE AUTO 0.15 K/mm3 (0.00-0.68); EOSINOPHILS PERCENT AUTO 1 % (0-6); Hematocrit 34.4 % (33.0-51.0); Hemoglobin 10.8 g/dL (11.5-16.0); IMMATURE GRAN ABSOLUTE AUTO 0.96 K/mm3 (0.00-0.10); IMMATURE GRAN PERCENT AUTO 5 % (0-1); LYMPHOCYTES ABSOLUTE AUTO 3.05 K/mm3 (0.84-5.20); LYMPHOCYTES PERCENT AUTO 16 % (21-46); MONOCYTES ABSOLUTE AUTO 1.89 K/mm3 (0.16-1.47); MONOCYTES PERCENT AUTO 10 % (4-13); Mean Corpuscular HGB 28.2 pg (26.0-34.0); Mean Corpuscular HGB Conc 31.4 g/dL (31.5-36.5); Mean Corpuscular Volume 90 fL (80-100); Mean Platelet Volume 10.4 fL (9.1-12.4); NEUTROPHILS PERCENT AUTO 68 % (41-73); NRBC ABSOLUTE 0.08 K/mm3 (0.00-0.02); NRBC Auto 0.4 /100 WBC (0.0-0.2); Platelet Count 491 K/mm3 (150-400); RDW Coefficient Variation 15.8 % (11.7-14.2); RDW Standard Deviation 51.4 fL (35.1-46.3); Red Blood Cell Count 3.83 M/mm3 (3.80-5.20); White Blood Cell Count 19.56 K/mm3 (4.00-11.30)
[2023-07-19 04:17] LABS: Albumin, Blood 2.6 g/dL (3.4-5.0); Anion Gap 4 mmol/L (6-16); Blood Urea Nitrogen 21 mg/dL (8-24); Bun/Creatinine Ratio 43.4 (12.0-20.0); CO2, Blood 26 mmol/L (21-32); Calcium, Blood 8.9 mg/dL (8.5-10.1); Chloride, Blood 117 mmol/L (98-108); Creatinine, Blood 0.48 mg/dL (0.40-1.00); Glomerular Filtration Rate 98 (60-); Glucose, Blood 202 mg/dL (70-99); Phosphorus, Blood 2.5 mg/dL (2.5-4.9); Sodium, Blood 147 mmol/L (136-145)
--- NOTE | 2023-07-19 05:34 | NUR ---
ASSUMED CARE PT RESTLESS T/O NIGHT. AROUND 2AM PT BEGAN TO CONSISTENTLY MOVE LEGS AROUND AND WAS ABLE TO DISCERN THAT PT HAD ITCHY/PAINFUL LEGS. MEDICATED PER EMAR AND PT IS NOW RESTING QUIETLY. PT WAS ABLE TO INTERMITTENTLY VERBALIZE ONE WORD/SHORT SENTENCES. SPO2 >92%; NSR (PT CONVERTED BACK INTO NSR/ST DURING THE NIGHT). SBP <160 AT TIME OF THIS NOTE. NO OTHER EVENTS NOTED TONIGHT. PUREWICK IN PLACE; RECTAL TUBE PATENT AND DRAINING TO GRAVITY.
--- NOTE | 2023-07-19 07:03 | NUR ---
UPDATE CHECKED IN ON PT AT 0650 D/T ARTIFACT ON TELE (MOVEMENT ARTIFACT), PT APPEARED TO BE IN DISTRESS AND WAS ABLE TO DISCERN THAT PT WAS EXPERIENCING PAIN. PT WAS ABLE TO COMMUNICATE THAT THE PAIN WAS D/T INSPIRATIONS W/ INHALING BEING WORSE THAN EXHALING; PT DID NOT SPECIFY LOCATION. SCOTT RT IN ROOM GIVING NEB TREATMENT AND PT APPEARS TO BE MORE RELAXED. REPORT/UPDATE GIVEN TO DAVID GRAY.
[2023-07-19 17:48] LABS: Glucose, Blood 494 mg/dL (70-99)
--- NOTE | 2023-07-19 18:43 | NUR ---
SUMMARY PT ABLE TO COMMUNICATE WITH NODDING YES OR NO OR MOUTHING WORDS. PT HAS BEEN MORE TIRED TODAY. THIS AM WOB INCREASED AND WAS PLACED ON BIPAP VIA TRACH. UP TO CHAIR FOR A FEW HOURS TODAY AND WORKED WITH PHYSICAL THERAPY. RECTAL TUBE REMOVED PER DR. RANDOLPH. H2O FLUSH INCREASED AGAIN TODAY FOR INCREASED SODIUM. GLUCOSE HAS BEEN STEADILY CLIMBING, DR. RANDOLPH CHANGED INSULIN REGIMEN TODAY AND PREDNISONE WAS DISCONTINUED. BP INCREASED TODAY, PRN HYDRALAZINE AND LABETOLOL GIVEN WITH GOOD RESULTS.
[2023-07-19 19:50] LABS: Glucose, Blood 410 mg/dL (70-99)
--- NOTE | 2023-07-19 21:06 | NUR ---
ASSUMED CARE PT A&O X3; COMMUNICATING APPROPRIATELY THROUGH NODDING/SHAKING OF HEAD. PT NODDED HEAD WHEN ASKED IF PT FELT COMFORTABLE. SHOOK HEAD WHEN ASKED IF PT WAS EXPERIENCING PAIN. MAP >65; SPO2 >92% ON BIPAP (TRACH); SINUS TACH IN THE 100'S. UPDATE PT HAD PULLED OUT DOBHOFF; ADDISON RN GIVEN OPPORTUNITY TO PLACE FIRST DOBHOFF, BUT WAS UNABLE TO; GORDON AND THIS RN ATTEMPTED TO PLACE, WITHOUT SUCCESS, IN BOTH NARES. DR ELLISON CALLED W/ OK TO HOLD OFF PER TUBE MEDICATIONS/ TUB FEEDINGS FOR THIS SHIFT. PT IS NOW RESTING QUIETLY IN ROOM.
[2023-07-20] VITALS (60 sets, daily range): BP systolic 119–186; BP diastolic 58–104
--- NOTE | 2023-07-20 02:36 | NUR ---
UPDATE PT WENT INTO AFIB RVR. DR JIMENES CALLED; MEDICATED PER ORDERS.
[2023-07-20 03:18] LABS: BASOPHILS ABSOLUTE AUTO 0.04 K/mm3 (0.00-0.23); BASOPHILS PERCENT AUTO 0 % (0-2); EOSINOPHILS ABSOLUTE AUTO 0.02 K/mm3 (0.00-0.68); EOSINOPHILS PERCENT AUTO 0 % (0-6); Hematocrit 34.9 % (33.0-51.0); Hemoglobin 10.7 g/dL (11.5-16.0); IMMATURE GRAN ABSOLUTE AUTO 0.68 K/mm3 (0.00-0.10); IMMATURE GRAN PERCENT AUTO 3 % (0-1); LYMPHOCYTES ABSOLUTE AUTO 2.17 K/mm3 (0.84-5.20); LYMPHOCYTES PERCENT AUTO 10 % (21-46); MONOCYTES ABSOLUTE AUTO 2.35 K/mm3 (0.16-1.47); MONOCYTES PERCENT AUTO 11 % (4-13); Mean Corpuscular HGB 27.7 pg (26.0-34.0); Mean Corpuscular HGB Conc 30.7 g/dL (31.5-36.5); Mean Corpuscular Volume 90 fL (80-100); Mean Platelet Volume 10.3 fL (9.1-12.4); NEUTROPHILS ABSOLUTE AUTO 17.16 K/mm3 (1.96-9.15); NEUTROPHILS PERCENT AUTO 77 % (41-73); NRBC ABSOLUTE 0.03 K/mm3 (0.00-0.02); NRBC Auto 0.1 /100 WBC (0.0-0.2); Platelet Count 537 K/mm3 (150-400); RDW Coefficient Variation 16.4 % (11.7-14.2); RDW Standard Deviation 54.4 fL (35.1-46.3); Red Blood Cell Count 3.86 M/mm3 (3.80-5.20); White Blood Cell Count 22.42 K/mm3 (4.00-11.30)
[2023-07-20 03:46] LABS: Albumin, Blood 2.8 g/dL (3.4-5.0); Anion Gap 3 mmol/L (6-16); Blood Urea Nitrogen 30 mg/dL (8-24); Bun/Creatinine Ratio 50.8 (12.0-20.0); CO2, Blood 28 mmol/L (21-32); Calcium, Blood 9.2 mg/dL (8.5-10.1); Chloride, Blood 119 mmol/L (98-108); Creatinine, Blood 0.59 mg/dL (0.40-1.00); Glomerular Filtration Rate 93 (60-); Glucose, Blood 237 mg/dL (70-99); Magnesium, Blood 3.4 mg/dL (1.6-2.4); Phosphorus, Blood 4.8 mg/dL (2.5-4.9); Potassium, Blood 4.4 mmol/L (3.5-5.5); Sodium, Blood 150 mmol/L (136-145)
--- NOTE | 2023-07-20 04:01 | NUR ---
UPDATE PT CONVERTED BACK TO NSR.
--- NOTE | 2023-07-20 05:53 | NUR ---
SHIFT SUMMARY PT RESTING QUIETLY IN BED. VSS. NO ACUTE EVENTS SINCE LAST NOTE.
--- NOTE | 2023-07-20 09:00 | NUR ---
SPOKE WITH DR. RANDOLPH AND DR. RECIO ABOUT PT NOT HAVING A DOBHOFF AND UNABLE TO GIVE MEDS. DR. RANDOLPH SAYS IT'S OK TO LEAVE IT OUT FOR NOW. SPOKE TO PHYSICIAN ABOUT NEEDING IV RATE AND BP CONTROL MEDS. PT WILL PROBABLEY GET A MODIFIED BARIUM SWALLOW TOMORROW.
--- NOTE | 2023-07-20 14:00 | NUR ---
PT WENT INTO AFIB WITH RATE 130'S-140'S AT 1142. DR. RANDOLPH NOTIFIED AND IV METOPROLOL ADMINISTERED. PT DID NOT RESPOND TO METOPROLOL THEREFORE CARDIZEM IVP WAS GIVEN AND CARDIZEM GTT STARTED. DR. RANDOLPH THEN DECIDED TO PLACE ANOTHER DOBHOFF SO PT CAN GET HER PILLS. PT TOLERATED WELL AND PLACEMENT CONFIRMED BY XR AND DR. RANDOLPH.
--- NOTE | 2023-07-20 18:44 | NUR ---
SUMMARY PT HAS BEEN LETHARGIC ALL DAY. NOT ACTIVE IN CARE I HAVE SEEN IN THE LAST COUPLE DAYS. CARDIZEM GTT WAS STARTED THIS AFTERNOON FOR AFIB 130'S-140'S. THIS WAS PRIOR TO DR. RANDOLPH DECIDING TO REPLACE THE DOBHOFF. AFTER DOBHOFF WAS PLACED PT DOSE OF AMIODORONE WAS GIVEN. PT WILL HAVE A DOSE OF METOPROLOL TONIGHT. PT BECOMING MORE ANXIOUS TONIGHT, SON AT BEDSIDE. EDUCATED SON ABOUT RELAXATION TECHNIQUES TO TRY WITH PT RATHER THAN MEDICATING. RESTRAINTS PLACED DUE TO PT TAKING BIPAP OFF OF TRACH AND WANTING TO PULL DOBHOFF OUT. EDUCATED THAT IT IS VERY IMPORTANT THAT PT GETS NIGHT DOSE OF MEDS THEN WE CAN REASSESS IF RESTRAINTS CAN BE REMOVED. PT HAS STRONG COUGH AND IS ABLE TO COUGH UP THICK ROSALES/RED STREAKED SPUTUM. BIPAP REMAINS FOR WORK OF BREATHING. WAS ON TRACH COLLAR FOR A FEW HOURS TODAY.
--- NOTE | 2023-07-20 19:27 | NUR ---
ASSUMED CARE PT IS RESTING QUIETLY AT BED; SPO2 >92% ON BIPAP (TRACH); MAP >65; AFIB RATE IN THE 120-130'S (CARDIZEM GTT INFUSING/TO BE GIVEN METOPROLOL W/ 2100 MEDS).
--- NOTE | 2023-07-20 22:18 | NUR ---
UPDATE PT PULLED AT BIPAP TUBING ACCIDENTLY; ALEIDA RN RECONNECTED AND THIS RN GAVE MORE EDUCATION ON THE IMPORTANCE OF NOT PULLING AT LINES. WAS ABLE TO DISERN THAT PT DID THIS ON ACCIDENT WHILE TRYING TO SCRATCH FACE/HAND D/T ITCHINESS. INFORMED PT ABOUT USING CALL LIGHT FOR ASSITANCE W/ MANEUVERING LINES. HAD PT DEMONSTRATE ABILITY TO USE CALL LIGHT TWICE. PT IS NOW RESTING QUIETLY AND APPEARS TO BE SLEEPING.
[2023-07-21] VITALS (59 sets, daily range): BP systolic 117–191; BP diastolic 45–118
[2023-07-21 03:14] LABS: Hematocrit 35.7 % (33.0-51.0); Hemoglobin 10.7 g/dL (11.5-16.0); Mean Corpuscular HGB 27.9 pg (26.0-34.0); Mean Corpuscular Volume 93 fL (80-100); Mean Platelet Volume 10.3 fL (9.1-12.4); Platelet Count 507 K/mm3 (150-400); RDW Coefficient Variation 16.3 % (11.7-14.2); Red Blood Cell Count 3.84 M/mm3 (3.80-5.20); White Blood Cell Count 18.49 K/mm3 (4.00-11.30)
[2023-07-21 03:32] LABS: Bun/Creatinine Ratio 49.3 (12.0-20.0); Calcium, Blood 8.8 mg/dL (8.5-10.1); Creatinine, Blood 0.57 mg/dL (0.40-1.00); Potassium, Blood 4.2 mmol/L (3.5-5.5)
--- NOTE | 2023-07-21 04:08 | NUR ---
UPDATE PT ANXIOUS/RESTLESS T/O NIGHT. SCAR RT SWITCHED PT TO HIGH FLOW AND PT HAS NOW BEEN SLEEPING FOR THE PAST HOUR~; SKIPPED 0400 ORAL CARE TO ALLOW PT TO SLEEP. PT HAS HAD LITTLE TO NO SLEEP FOR THE PAST FOUR SHIFTS THIS RN HAD.
--- NOTE | 2023-07-21 05:46 | NUR ---
SHIFT SUMMARY PT RESTING QUIETLY IN BED; AWAKE THIS AM FOR 0600 MEDS; SMILING. VSS. CURRENTLY ON HIGH FLOW 30L 30% FIO2. CARDIZEM GTT INFUSING (SEE FLOWSHEET). NO ATTEMPTS TO PULL OUT DOBHOFF THIS SHIFT. NO ACUTE EVENTS SINCE LAST NOTE.
--- NOTE | 2023-07-21 07:00 | NUR ---
ASSUME CARE: I have assumed care of this patient.
[2023-07-21] MEDS ORDERED: BUME2 PO (11:33)
[2023-07-21] MEDS ORDERED: Amlodipine Bes2.5 MG PO (11:41)
[2023-07-21] MEDS ORDERED: ANASTROZOLE1 M7 PO (11:41)
[2023-07-21] MEDS ORDERED: INSULIN AS100 UNIT/6 SC (11:42)
[2023-07-21] MEDS ORDERED: ATOR40TA PO (11:43)
[2023-07-21] MEDS ORDERED: Cymbalta20 MG PO (11:43)
[2023-07-21] MEDS ORDERED: GUAI200 PO (11:44)
[2023-07-21] MEDS ORDERED: SYNJARDY 12.5-1 EAC3 PO (11:44)
[2023-07-21] MEDS ORDERED: LORA10ER PO (11:45)
[2023-07-21] MEDS ORDERED: INSULANI SC (11:45)
[2023-07-21] MEDS ORDERED: Robaxin750 MG PO (11:46)
[2023-07-21] MEDS ORDERED: HYDHCL25 PO (11:47)
[2023-07-21] MEDS ORDERED: TIOT18 INH (11:48)
--- NOTE | 2023-07-21 18:23 | NUR ---
SHIFT SUMMARY: Trach changed to 6.0 unfenestrated, uncuffed this morning by Dr Vasquez. Pt has since been able to vocalize with passy saida valve today. She was up in chair for about four hours today and worked with therapies. Free water flushes increased for sodium.
--- NOTE | 2023-07-21 19:00 | NUR ---
ASSUMED CARE OF PT AT 1900 PT AWAKE IN BED WITH REQUESTS WHILE RECIEVING BEDSIDE REPORT. VITALS WNL AT THIS TIME. PT IS SALINE LOCKED. AIRVO 30 LPM AT 28% SEE FULL ASSESSMENT FOR FURTHER INFORMATION.
--- NOTE | 2023-07-21 20:14 | NUR ---
RT IN ROOM WITH PT AT THIS TIME FOR BREATHING TREATMENT.
[2023-07-22] VITALS (21 sets, daily range): BP systolic 108–177; BP diastolic 43–78
[2023-07-22 03:52] LABS: BASOPHILS ABSOLUTE AUTO 0.05 K/mm3 (0.00-0.23); BASOPHILS PERCENT AUTO 0 % (0-2); EOSINOPHILS ABSOLUTE AUTO 0.23 K/mm3 (0.00-0.68); EOSINOPHILS PERCENT AUTO 1 % (0-6); Hematocrit 34.8 % (33.0-51.0); Hemoglobin 10.5 g/dL (11.5-16.0); IMMATURE GRAN ABSOLUTE AUTO 0.42 K/mm3 (0.00-0.10); IMMATURE GRAN PERCENT AUTO 2 % (0-1); LYMPHOCYTES ABSOLUTE AUTO 2.79 K/mm3 (0.84-5.20); LYMPHOCYTES PERCENT AUTO 14 % (21-46); MONOCYTES ABSOLUTE AUTO 1.98 K/mm3 (0.16-1.47); MONOCYTES PERCENT AUTO 10 % (4-13); Mean Corpuscular HGB 27.7 pg (26.0-34.0); Mean Corpuscular HGB Conc 30.2 g/dL (31.5-36.5); Mean Corpuscular Volume 92 fL (80-100); Mean Platelet Volume 10.2 fL (9.1-12.4); NEUTROPHILS ABSOLUTE AUTO 13.85 K/mm3 (1.96-9.15); NEUTROPHILS PERCENT AUTO 72 % (41-73); Platelet Count 390 K/mm3 (150-400); RDW Coefficient Variation 15.9 % (11.7-14.2); RDW Standard Deviation 54.2 fL (35.1-46.3); Red Blood Cell Count 3.79 M/mm3 (3.80-5.20); White Blood Cell Count 19.32 K/mm3 (4.00-11.30)
[2023-07-22 04:10] LABS: Albumin, Blood 2.7 g/dL (3.4-5.0); Anion Gap 2 mmol/L (6-16); Blood Urea Nitrogen 29 mg/dL (8-24); Bun/Creatinine Ratio 49.4 (12.0-20.0); CO2, Blood 30 mmol/L (21-32); Calcium, Blood 8.6 mg/dL (8.5-10.1); Chloride, Blood 117 mmol/L (98-108); Creatinine, Blood 0.59 mg/dL (0.40-1.00); Glomerular Filtration Rate 93 (60-); Glucose, Blood 239 mg/dL (70-99); Phosphorus, Blood 3.7 mg/dL (2.5-4.9); Potassium, Blood 3.7 mmol/L (3.5-5.5); Sodium, Blood 149 mmol/L (136-145)
--- NOTE | 2023-07-22 06:44 | NUR ---
END OF SHIFT SUMMARY PT RESTED MOST OF THE NIGHT WITH MINIMAL INTERUPTIONS. NO ACUTE CHANGES THIS SHIFT. VITALS WNL. PAIN VARIES FROM 3-7/10. AIRVO CONTINUES AT 30L/28% WILL CONTINUE TO MONITOR UNTIL REPORT GIVEN TO DAY SHIFT RN.
--- NOTE | 2023-07-22 08:00 | NUR ---
INITIAL ASSESSMENT PATIENT ANXIOUS AND TRYING TO CRAWL OUT OF BED WHEN FIRST ARRIVED ON UNIT AND RECEIVING REPORT FROM BROACHING MACHINE REPAIRER NURSE. PATIENT CONFUSED AT THAT TIME AND ONLY ORIENTED TO SELF AND . PATIENT STATING OVER AND OVER THAT SHE NEEDED TO GET DRESSED AND GO TO SWALLOW STUDY TODAY. PATIENT INFORMED THAT SHE NEEDED TO STAY IN GOWN AND THAT NURSE WOULD TAKE HER DOWN TO BARIUM SWALLOW WHEN IT WAS TIME FOR TEST. AFTER REPORT FROM OFF GOING NURSE WENT BACK TO CHECK ON PATIENT AND PATIENT SLEEPING SOUNDLY; PATIENT WAKES TO VERBAL STIMULI BUT THEN GOES BACK TO SLEEP EVEN BEFORE ANSWERING QUESTION. PATUEBT WEAK BUT ABLE TO MOVE ALL EXTREMITIES. PATIENT AFEBRILE. NO COMPLAINTS OF PAIN. LUNGS CLEAR. PATIENT HAS UNCUFFED, NON-FENESTRATED TRACH. PATIENT ON AIRVO 30 L AND 28% FIO2. PATIENT IN ST WITH PACS, HR IN THE LOW 100S. SBP 160S TO 170S. PER , PATIENT HAS DUAL CHAMBER PACER. ABD MODERATELY DISTENDED, SOFT, WITH NORMOACTIVE BOWEL SOUNDS NOTED. DOBHOFF IN PLACE; TF AT GOAL RATE WITH 300 MLS WATER FLUSH Q4H. PRN DOCUSATE GIVEN LAST BM DOCUMENTED ON 07/17. PUREWICK IN PLACE DRAINING YELLOW COLORED URINE. SKIN PALE. SCATTERED BRUISES NOTED. EXCORIATION TO BUTTOCKS. PICC SALINE LOCKED; DIFFICULT TO FLUSH. BED LOW, CALL LIGHT IN REACH. AT BEDSIDE.
[2023-07-22 11:25] LABS: Base Excess Venous 5.3 mmol/L; Bicarbonate Venous 29.1 mmol/L (24.0-30.0); PCO2 Venous 34.9 mmHg (38-42); pH Blood Venous 7.52 (7.34-7.37)
--- NOTE | 2023-07-22 12:00 | NUR ---
PATIENT AFEBRILE. HR IN THE 80S. SBP IN THE 130S. PATIENT REMAINS CHANGING BETWEEN AWAKE AND ANXIOUS TO GO HOME TO SLEEPING AND LETHARGIC.
--- NOTE | 2023-07-22 16:00 | NUR ---
PATIENT AFEBRILE. HR IN THE 90S. SBP IN THE 140S. NO COMPLAINTS.
[2023-07-22] MEDS ORDERED: PROLIA60 MG/1 ML SC (16:24)
--- NOTE | 2023-07-22 18:17 | NUR ---
DR. RECIO CALLED AND INFORMED OF BLOOD SUGAR OF 354. DR. RECIO DOES NOT WANT TO MAKE ANY INSULIN CHANGES AT THIS TIME. NO ORDERS RECEIVED.
--- NOTE | 2023-07-22 18:31 | NUR ---
SHIFT SUMMARY PATIENT REMAINED ROTATING BETWEEN AWAKE AND ANXIOUS TO GO HOME OR SLEEPING AND DIFFICULT TO STAY AWAKE. PATIENT REMAINED MOSTLY CONFUSED. PATIENT REMAINED WEAK BUT ABLE TO MOVE ALL EXTREMITIES. PATIENT REMAINED AFEBRILE. PATIENT HAD NO COMPLAINTS OF PAIN THIS SHIFT. PATIENT CHANGED FROM AIRVO AT 30 L AND 28% FIO2 THIS AM TO TRACH MASK ON 26% HUMIDIFIED O2 WITH SPEAKING VALVE FOR THE REST OF THE DAY. PATIENT HAD SMALL AMOUNT OF THICK, MAROON SPUTUM UP FROM TRACH. [facility] CARE PERFORMED THIS SHIFT. PATIENT SR TO ST WITH OCCASIONAL PACS, HR 80S TO LOW 100S. SBP 130S TO 170S. NO BM THIS SHIFT. PRN COLACE GIVEN LAST BM DOCUMENTED ON THE . PIVOT 1.5 TF CHANGED TO JEVITY 1.2 AT RATE OF 60 MLS/ HOUR. WATER FLUSH REMAINS 300 MLS Q4H. PATIENT HAD BARIUM SWALLOW THIS AM. PATIENT PLACED ON PUREE DIET WITH NECTAR THICK LIQUIDS AND HAS TOLERATED WELL THUS FAR. PATIENT DOES NOT HAVE MUCH APPETITE FOR THE PUREE FOODS. 1375 MLS OF YELLOW COLORED URINE OUT FROM PUREWICK. NO CHANGES TO SKIN NOTED. COMPLETE BED BATH PERFORMED THIS SHIFT. PICC DC'D THIS SHIFT PER DR. ORTIZ DIFFICULT TO FLUSH AND NOT PULLING BLOOD. PG PLACED TO PAPITO. ZAROXOLYN AND BUMEX ADDED AND GIVEN THIS SHIFT. PATIENT UP TO CHAIR WITH LIFT THIS SHIFT. BLOOD SUGARS 259 TO 354 THIS SHIFT; NO CHANGE TO INSULIN THIS SHIFT PER DR. RECIO. HERE MOST OF THE DAY. PATIENT HAS NO COMPLAINTS AT THIS TIME. CALL LIGHT IN REACH. REPORT WILL BE GIVEN TO ASSUMING WELL LOGGING MUD ANALYSIS CAPTAIN NURSE SHORTLY.
--- NOTE | 2023-07-22 19:49 | NUR ---
ASSUMED CARE OF PATIENT AT 1900. REPORT RECEIVED FROM ISAAC MIGUEL. VSS AND NO ACUTE NEEDS IDENTIFIED AT THIS TIME. SEE SHIFT ASSESSMENT FOR FULL ASSESSMENT SUMMARY.
[2023-07-23] VITALS (25 sets, daily range): BP systolic 120–167; BP diastolic 40–139
--- NOTE | 2023-07-23 05:06 | NUR ---
PATIENT PULLED DOBHOFF AT APPROXIMATELY 0430 PATIENT PULLED DOBHOFF OUT. THIS RN, DARA RN, AND GORDON RN WERE ALL PRESENT TO HELP WITH REPLACING DOBHOFF AFTER SUPPLIES WERE GATHERED. THIS RN EXPLAINED TO THE PATIENT THAT A NEW DOBHOFF WOULD NEED TO BE PLACED TO CONTINUE TO PROVIDE NECESSARY NURTITION, WHEN THE PATIENT STARTED SHAKING HER HEAD "NO". THE TWO OTHER RN'S PRESENT ASKED THE PATIENT IF SHE WAS AWARE THAT THE DOBHOFF WAS WHAT WAS SUPPLYING NUTRITION TO HELP HER GET BETTER. PT SHOOK HER HEAD YES, BUT WHEN IT WAS REITERATED THAT THE DOBHOFF WOULD NEED TO GET PLACED TO CONTINUE TO PROVIDE NUTRITION SHE SHOOK HER HEAD "NO" AGAIN. DARA GRAY ASKED PT IF SHE WAS REFUSING TO HAVE THE DOBHOFF PLACED, AND THE PT CLEARLY SHOOK HER HEAD "YES".
--- NOTE | 2023-07-23 05:55 | NUR ---
SHIFT SUMMARY PATIENT REMAINED ALERT BUT ONLY ORIENTED TO SELF THROUGHOUT ENTIRETY OF THE SHIFT. SHE HAD PERIODS OF ANXIETY AND MENTIONED WANTING TO GO HOME. AFEBRILE. MONITOR SHOWED SINUS RHYTHM AND SINUS TACHY WITH HR IN 80'S-120'S. BP REMAINED STABLE. PT PLACED ON BIPAP AT NIGHT. 7/12 FiO2 AT 28. PATIENT PULLED DOBHOFF AT APPROXIMATELY 0430. DESPITE BEING EDUCATED ON THE NEED FOR TUBE FEEDS FOR ADEQUATE NUTRITION, PATIENT REFUSED TO HAVE DOBHOFF REPLACED. SEE NOTE FOR FURTHER DOCUMENTATION. RECEIVED 0600 MEDS CRUSHED IN APPLESAUCE. NECTAR THICK LIQUID DIET ORDER IN PLACE. PUREWICK REMAINED IN PLACE THROUGHOUT ENTIRETY OF SHIFT WITH GOOD OUTPUT. PG TO PAPITO DRAWS AND FLUSHES WELL.
--- NOTE | 2023-07-23 08:00 | NUR ---
INITIAL ASSESSMENT PATIENT DROWSY THIS AM. PATIENT NOT ABLE TO ANSWER ANY ORIENTATION QUESTIONS CORRECTLY THIS AM. PATIENT CONFUSED AND ASKES "HOW DID YOU KNOW HOW TO FIND ME". INFORMS PATIENT THAT HE HAS BEEN HERE EVERYDAY TO SEE HER. PATIENT ABLE TO FOLLOW SIMPLE COMMANDS. PATIENT WEAK BUT ABLE TO MOVE ALL EXTREMITIES. PATIENT AFEBRILE. PATIENT DENIES PAIN. PATIENT ON BIPAP 20/7, RATE OF 12 AND 28% FIO2 WHEN ENTERED ROOM. PATIENT CHANGED OVER TO HUMIDIFIED TRACH MASK AT 26% FIO2 AND REMAINS SATTING 90% AND GREATER. PATIENT HAS UNCUFFED, NON-FENESTRATED TRACH. LUNGS DIM IN LOWER LOBES. SCANT AMOUNT OF THIN, BLOODY SPUTUM NOTED WITH SUCTIONING. PATIENT IN SR, HR 80S TO 90S. SBP IN THE 160S. PATIENT HAS DUAL CHAMBER PACER. DOCUSATE GIVEN PATIENT HAS NOT HAD BM SINCE Jun. PATIENT PULLED DOBHOFF ON COMMISSIONS ANALYST. PATIENT ON PUREE DIET WITH NECTAR THICK LIQUIDS. PATIENT IS DRINKING A GOOD AMOUNT BUT IS NOT EATING MUCH OF THE PUREE DIET. PUREWICK AND ATTENDS IN PLACE FOR INCONTINENCE. SCATTERED BRUISING NOTED. EXCORATION TO BUTTOCKS. REPOSITIONING Q2H. PAPITO PG FLUSHED AND SALINE LOCKED. BED LOW, CALL LIGHT IN REACH. AT BEDSIDE. CARE CONTINUES.
[2023-07-23 08:19] LABS: BASOPHILS ABSOLUTE AUTO 0.06 K/mm3 (0.00-0.23); BASOPHILS PERCENT AUTO 0 % (0-2); EOSINOPHILS ABSOLUTE AUTO 0.34 K/mm3 (0.00-0.68); EOSINOPHILS PERCENT AUTO 2 % (0-6); Hematocrit 34.3 % (33.0-51.0); Hemoglobin 10.8 g/dL (11.5-16.0); IMMATURE GRAN ABSOLUTE AUTO 0.82 K/mm3 (0.00-0.10); IMMATURE GRAN PERCENT AUTO 4 % (0-1); LYMPHOCYTES ABSOLUTE AUTO 3.37 K/mm3 (0.84-5.20); LYMPHOCYTES PERCENT AUTO 16 % (21-46); MONOCYTES PERCENT AUTO 10 % (4-13); Mean Corpuscular HGB Conc 31.5 g/dL (31.5-36.5); Mean Corpuscular Volume 89 fL (80-100); Mean Platelet Volume 10.5 fL (9.1-12.4); NEUTROPHILS ABSOLUTE AUTO 14.29 K/mm3 (1.96-9.15); NEUTROPHILS PERCENT AUTO 69 % (41-73); NRBC ABSOLUTE 0.03 K/mm3 (0.00-0.02); NRBC Auto 0.1 /100 WBC (0.0-0.2); Platelet Count 414 K/mm3 (150-400); RDW Coefficient Variation 15.8 % (11.7-14.2); RDW Standard Deviation 50.3 fL (35.1-46.3); Red Blood Cell Count 3.86 M/mm3 (3.80-5.20); White Blood Cell Count 20.88 K/mm3 (4.00-11.30)
[2023-07-23 08:44] LABS: Bun/Creatinine Ratio 41.8 (12.0-20.0); Creatinine, Blood 0.69 mg/dL (0.40-1.00); Potassium, Blood 2.9 mmol/L (3.5-5.5)
--- NOTE | 2023-07-23 10:51 | NUR ---
RT, TAMMY Ramos, INFORMED THAT PATIENT IS REFUSING [facility]RA AT THIS TIME AND THAT CARE MANAGEMENT STATES PATIENT WOULD NEED TO GO TO SNF BUT WOULD BE REFUSED BECAUSE OF TRACH. CARE MANAGEMENT STATED THAT WHEN PATIENT DISCHARGED SHE WOULD THEN BE GOING HOME WITH ON SOME HOME HEALTH. RT INFORMED THAT THIS NURSE GAVE SEVERAL PRINTED OUT PACKETS ABOUT TRACHS AND TRACH CARE/ SUCTIONING ETC. INFORMED TO LOOK THROUGH AND SEE IF HE HAS ANY QUESTIONS FOR NURSE OR RT. RT INFORMED OF ALL OF THIS AND STATED HE WOULD SHOW TRACH CARE ETC. INFORMED THAT RT WOULD BE IN TO EDUCATE HIM.
--- NOTE | 2023-07-23 12:00 | NUR ---
PATIENT AFEBRILE. HR IN THE 70S. SBP 120S TO 130S. PATIENT NOW ORIENTED TO SELF, TOWN, HOSPITAL AND YEAR. BLOOD SUGAR 209; COVERAGE GIVEN. NO OTHER ACUTE CHANGES AT THIS TIME. CALL LIGHT IN REACH. CARE CONTINUES.
[2023-07-23 15:16] LABS: Bun/Creatinine Ratio 41.2 (12.0-20.0); Calcium, Blood 8.8 mg/dL (8.5-10.1); Creatinine, Blood 0.73 mg/dL (0.40-1.00); Potassium, Blood 3.6 mmol/L (3.5-5.5)
--- NOTE | 2023-07-23 16:45 | NUR ---
PATIENT AFEBRILE. NO COMPLAINTS OF PAIN. NO CHANGES IN O2 DELIVERY. HR IN THE 70S. SBP IN THE 130S. BLOOD SUGAR OF 251; COVERAGE ADMINISTERED. NO OTHER ACUTE CHANGES TO NOTE ON AT THIS TIME. CARE CONTINUES.
--- NOTE | 2023-07-23 18:47 | NUR ---
SHIFT SUMMARY PATIENT REMAINED EITHER AWAKE AND ANXIOUS THIS AM OR SLEEPING AND HARD TO KEEP AWAKE. THIS AFTERNOON PATIENT HAS IMPROVED MUCH. PATIENT IS NOW ALERT AND ORIENTED TO TOWN, HOSPITAL, SELF, AND YEAR. PATIENT IS MORE AWAKE AND STAYING AWAKE LONGER AFTER HER EARLY AFTERNOON NAP. PATIENT ATE WELL AT DINNER ON THE PUREE DIET AND HAS DRANK A GOOD AMOUNT OF NECTAR THICK LIQUIDS TODAY. PATIENT HAS REMAINED AFEBRILE. PATIENT HAS NOT HAD ANY COMPLAINTS OF PAIN THIS SHIFT. PATIENT REMAINED ON HUMIDIFIED TRACH MASK AT 26% FIO2 AND REMAINED SATTING GREATER THAN 90%. THIN BLOODY SECRETIONS SUCTIONED FROM TRACH THIS AM BUT THIS AFTERNOON SECRETIONS HAVE BEEN MORE THICK AND ROSALES/ WHITE. PATIENT REMAINED IN SR, HR 60S TO 90S. SBP 120S TO 160S. PATIENT HAD SMALL, LOOSE, BROWN BM AT END OF THIS SHIFT. 800 MLS OF URINE OUT WITH PUREWICK. NO CHANGES TO SKIN NOTED. PATIENT REPOSITIONED Q2H. PATIENT UP TO CHAIR FOR SEVERAL HOURS THIS SHIFT. PT/OT WORKED WITH PATIENT THIS SHIFT. PATIENT RECEIVED NEW MED TEFLARO THIS SHIFT. PATIENT RECEIVED TOTAL OF 80 MEQ KCL THIS SHIFT FOR POTASSIUM REPLACEMENT. NEW BLOOD CULTURES OBTAINED THIS SHIFT. BUMEX DC'D AND 1 L NS BOLUS GIVEN SODIUM DROPPED FROM 149 TO 135. BLOOD SUGARS 209 AND 251 THIS SHIFT. HERE MOST OF THE DAY. PATIENT HAS NO COMPLAINTS AT THIS TIME. REPORT GIVEN TO ASSUMING BANQUET SERVER ON CALL NURSE.
--- NOTE | 2023-07-23 19:23 | NUR ---
ASSUMED CARE OF PATIENT AT 1900. RECEIVED REPORT FROM ISAAC MIGUEL. VSS AND NOT ACUTE NEEDS IDENTIFIED AT THIS TIME. SEE SHIFT ASSESSMENT FOR FURTHER ASSESSMENT DETAILS.
[2023-07-24] VITALS (19 sets, daily range): BP systolic 123–167; BP diastolic 41–65
[2023-07-24 03:35] LABS: BASOPHILS ABSOLUTE AUTO 0.05 K/mm3 (0.00-0.23); BASOPHILS PERCENT AUTO 0 % (0-2); EOSINOPHILS ABSOLUTE AUTO 0.57 K/mm3 (0.00-0.68); EOSINOPHILS PERCENT AUTO 3 % (0-6); Hematocrit 30.7 % (33.0-51.0); Hemoglobin 9.4 g/dL (11.5-16.0); IMMATURE GRAN ABSOLUTE AUTO 0.65 K/mm3 (0.00-0.10); IMMATURE GRAN PERCENT AUTO 4 % (0-1); LYMPHOCYTES ABSOLUTE AUTO 3.33 K/mm3 (0.84-5.20); LYMPHOCYTES PERCENT AUTO 19 % (21-46); MONOCYTES ABSOLUTE AUTO 1.43 K/mm3 (0.16-1.47); MONOCYTES PERCENT AUTO 8 % (4-13); Mean Corpuscular HGB 27.6 pg (26.0-34.0); Mean Corpuscular HGB Conc 30.6 g/dL (31.5-36.5); Mean Corpuscular Volume 90 fL (80-100); Mean Platelet Volume 10.2 fL (9.1-12.4); NEUTROPHILS ABSOLUTE AUTO 11.81 K/mm3 (1.96-9.15); NEUTROPHILS PERCENT AUTO 66 % (41-73); Platelet Count 321 K/mm3 (150-400); RDW Coefficient Variation 15.5 % (11.7-14.2); White Blood Cell Count 17.84 K/mm3 (4.00-11.30)
[2023-07-24 03:50] LABS: Bun/Creatinine Ratio 29.1 (12.0-20.0); Calcium, Blood 8.8 mg/dL (8.5-10.1); Creatinine, Blood 0.65 mg/dL (0.40-1.00); Potassium, Blood 3.8 mmol/L (3.5-5.5)
[2023-07-24] MEDS ORDERED: ADVAIR INH ×2 (04:41→04:43)
[2023-07-24] MEDS ORDERED: ALLO100 PO (04:45)
[2023-07-24] MEDS ORDERED: DYCYCLOMINE (05:04)
[2023-07-24] MEDS ORDERED: LIDO5TO TOP (05:05)
[2023-07-24] MEDS ORDERED: LIDO700A20 TOP (05:06)
[2023-07-24] MEDS ORDERED: TIOT18 INH (05:06)
[2023-07-24] MEDS ORDERED: NITR.4SL SL (05:07)
--- NOTE | 2023-07-24 06:08 | NUR ---
SHIFT SUMMARY PATIENT REMAINED ALERT AND ORIENTED X 4 THROUGHOUT ENTIRETY OF SHIFT. AFEBRILE. REPORTED A MIGRAINE AT 0042 AND WAS GIVEN PRN FENTANYL WHICH PROVIDED RELIEF. MONITOR SHOWED SR - PACED. BP STABLE WITH HR IN 60'S-90'S. TRACH COLLAR REMAINED IN PLACE ALL NIGHT AT 28% WITH SATURATIONS IN 90'S. NO BM THIS SHIFT. CBG'S ARE NOW ACHS. PUREWICK IN PLACE WITH CLEAR YELLOW URINE OUTPUT. PG TO PAPITO DRAWS AND FLUSHES WELL. WILL CONTINUE TO MONITOR AND REPORT TO ONCOMING NURSE.
--- NOTE | 2023-07-24 10:44 | NUR ---
ASSUMPTION OF CARE REPORT RECEIVED FROM NOC RN. PT UP IN BEDSIDE CHAIR AT TIME OF ASSESSMENT. ALERT AND ORIENTED X 4, ABLE TO MAKE NEEDS KNOWN. HR 60'S SR, MAP > 65. CHRONIC TRACH PATENT, TRACH COLLAR IN PLACE, FIO2 26%, OXYGEN SATURATION >90%. PUREWICK AND ATTENDS IN PLACE. AT THE BEDSIDE. PT ATE 100% OF HER BREAKFAST THIS AM, TOLERATED WELL.
--- NOTE | 2023-07-24 17:48 | NUR ---
SHIFT SUMMARY PT RESTING IN BED. ALERT AND ORIENTED, FOLLOWS COMMANDS AND IS ABLE TO MAKE HER NEEDS KNOWN. HR 60-70'S SR, MAP >65. CHRONIC TRACH, TRACH COLLAR IN PLACE, FIO2 26%, OXYGEN SATURATION > 90%. PUREWICK IN PLACE, DRAINING YELLOW URINE. POWERGLIDE TO PAPITO SALINE LOCKED.
--- NOTE | 2023-07-24 19:22 | NUR ---
ASSUMED CARE OF PATIENT AT 1900. REPORT RECEIVED FROM OWEN RN AND MANDI RN. VSS AND NO ACUTE NEEDS IDENTIFIED AT THIS TIME. SEE SHIFT ASSESSMENT FOR FURTHER ASSESSMENT DETAILS.
[2023-07-25] VITALS (42 sets, daily range): BP systolic 120–189; BP diastolic 39–119
[2023-07-25 03:39] LABS: BASOPHILS ABSOLUTE AUTO 0.06 K/mm3 (0.00-0.23); BASOPHILS PERCENT AUTO 0 % (0-2); EOSINOPHILS ABSOLUTE AUTO 0.57 K/mm3 (0.00-0.68); EOSINOPHILS PERCENT AUTO 4 % (0-6); Hematocrit 30.2 % (33.0-51.0); Hemoglobin 9.4 g/dL (11.5-16.0); IMMATURE GRAN PERCENT AUTO 5 % (0-1); LYMPHOCYTES ABSOLUTE AUTO 2.32 K/mm3 (0.84-5.20); LYMPHOCYTES PERCENT AUTO 16 % (21-46); MONOCYTES PERCENT AUTO 7 % (4-13); Mean Corpuscular HGB 27.6 pg (26.0-34.0); Mean Corpuscular HGB Conc 31.1 g/dL (31.5-36.5); Mean Corpuscular Volume 89 fL (80-100); Mean Platelet Volume 10.5 fL (9.1-12.4); NEUTROPHILS PERCENT AUTO 67 % (41-73); Platelet Count 298 K/mm3 (150-400); RDW Standard Deviation 48.2 fL (35.1-46.3); Red Blood Cell Count 3.41 M/mm3 (3.80-5.20); White Blood Cell Count 14.25 K/mm3 (4.00-11.30)
[2023-07-25 04:09] LABS: Bun/Creatinine Ratio 26.9 (12.0-20.0); Calcium, Blood 9.4 mg/dL (8.5-10.1); Creatinine, Blood 0.67 mg/dL (0.40-1.00); Potassium, Blood 3.4 mmol/L (3.5-5.5)
--- NOTE | 2023-07-25 05:28 | NUR ---
SHIFT SUMMARY. PATIENT REMAINED ALERT AND ORIENTED THROUGHOUT ENTIRETY OF SHIFT. SHE MADE PURPOSEFUL MOVEMENTS, GAVE APPROPRIATE VERBAL RESPONSES TO QUESTIONS, AND WAS WANTING TO GET OOB. AFEBRILE. MONITOR SHOWED SR PACED. HR IN 60'S-90'S. BP STABLE. REMAINED ON TRACH COLLAR OVERNIGHT AT 26%. NO BM ON NOC SHIFT. PUREWICK IN PLACE DRAINING CLEAR YELLOW URINE. PG TO PAPITO DRAWS AND FLUSHES WELL. WILL CONTINUE TO MONITOR AND REPORT TO ONCOMING NURSE.
--- NOTE | 2023-07-25 07:00 | NUR ---
ASSUMPTION OF CARE PT ALERT, ASKING TO CALL ON TELEPHONE. ASSISTED WITH DIALING PHONE NUMBER. SHE IS ALERT AND ORIENTED. PASSY MATT VALVE IN PLACE. NOW AT BEDSIDE AND PT PARTICIPATES IN CONVERSATION. ASSISTS WITH CARE. BED IN LOW POSITION, CALL LIGHT WITHIN REACH.
--- NOTE | 2023-07-25 16:52 | NUR ---
Spiritual Care Pt. visit. Pt. is resting in bed, but responds when I enter the room. The Pt. has a trach, but is responsive. Facilitate introductions and life review as I had not been with the Pt. when she was fully engaged. Facilitated introductory conversation and a short life review. Listen with empathy and calming presence. Pt. displays evidence of awareness and engagement as well as a joyous smile. Prayed with the Pt. Pt. verbalized gratitude for the spiritual care visit.
--- NOTE | 2023-07-25 18:38 | NUR ---
SHIFT SUMMARY PT REMAINS ON TRACH COLLAR WITH HUMIDIFIED AIR. NEW CANNULA PLACED TODAY AND TRACH CARE DONE THIS SHIFT. PASSY MATT VALVE IN PLACE AND PT HAS BEEN COMMUNICATING THROUGHOUT THE DAY. SHE HAS A PLEASANT AFFECT AND HAS BEEN ASSISTING WITH CARE AND ADLS. PT ASSISTED WITH MEALS BUT IS ATTEMPTING TO ASSIST. PUREWICK IN PLACE WITH 500ML OUTPUT. AT BEDSIDE THROUGHOUT THE MORNING. EDUCATION PROVIDED BY LUCINA GUTIERREZ REGARDING TRACH CARE TO PT AND RANJANA. BOTH RECEPTIVE TO EDUCATION AND ASK QUESTIONS. SON AT BEDSIDE THIS EVENING AND UPDATED ON PT CONDITION. PT REQUESTS CURTAINS TO BE CLOSED AND LIGHTS DIMMED. SOFT TOUCH CALL LIGHT WITHIN REACH.
[2023-07-26] VITALS (22 sets, daily range): BP systolic 108–168; BP diastolic 37–77
[2023-07-26 03:54] LABS: Hematocrit 29.1 % (33.0-51.0); Mean Corpuscular HGB 27.2 pg (26.0-34.0); Mean Corpuscular HGB Conc 30.9 g/dL (31.5-36.5); Mean Corpuscular Volume 88 fL (80-100); Mean Platelet Volume 10.5 fL (9.1-12.4); Platelet Count 286 K/mm3 (150-400); RDW Coefficient Variation 15.1 % (11.7-14.2); RDW Standard Deviation 48.6 fL (35.1-46.3); Red Blood Cell Count 3.31 M/mm3 (3.80-5.20); White Blood Cell Count 12.15 K/mm3 (4.00-11.30)
[2023-07-26 04:26] LABS: Bun/Creatinine Ratio 23.6 (12.0-20.0); Calcium, Blood 8.7 mg/dL (8.5-10.1); Creatinine, Blood 0.59 mg/dL (0.40-1.00); Potassium, Blood 3.6 mmol/L (3.5-5.5)
--- NOTE | 2023-07-26 06:44 | NUR ---
SHIFT SUMMARY PT CONFUSED AT BEGINNING OF SHIFT, STATES SHES AT A GUN SHOW AND TRYING TO GET OOB. PT REDIRECTED AND BECAME ANXIOUS REGARDING WHAT HAPPENED. EXPLAINED TO PT WHAT HAPPENED AND PROVIDED REASSURANCE. PT LESS CONFUSED THIS AM AND A/O X 3. TRACH COLLAR IN PLACE. HTN NOTED WHEN PT AWAKE AND MOVING AROUND. OTHER VSS. SR WITH PACED BEATS RATE 60-80'S. PT C/O BACK PAIN AND MEDICATED ONCE WITH PRN MEDICATIONS. PURE WICK IN PLACE, CHANGED ONCE THIS SHIFT. TURNED Q2. SOFT TOUCH CALL LIGHT IN REACH.
--- NOTE | 2023-07-26 07:00 | NUR ---
ASSUMPTION OF CARE PT DROWSY THIS MORNING, WAKENS TO VERBAL STIMULI. SHE REMAINS ON TRACH COLLAR WITH HUMIDIFIED AIR. PUREWICK IN PLACE. VSS AT THSI TIME. BED IN LOW POSITION, CALL LIGHT RESTING ON PT'S CHEST. AT BEDSIDE.
--- NOTE | 2023-07-26 11:04 | NUR ---
UPDATE PT REMAINS ALERT AND ORIENTED WITH PLEASANT AFFECT. SHE COMMUNICATES WELL WITH PASSY MATT VALVE IN PLACE. SHE IS EAGER TO ASSIST WITH ADLS. PT TRANSFERRED INTO RECLINER WITH LIFT. SAT IN CHAIR FOR APPROX 2HRS. WORKED WITH PT AND WAS ABLE TO STAND. AND SON AT BEDSIDE. PLAN FOR TRANSITION TO PCU 7.
--- NOTE | 2023-07-26 17:15 | NUR ---
Patient has beemn quiet and resting with spouse at bedside. She remains alert and oriented and able to communicate her needs. Spouse went home for night and will be back tomorrow. She is currently on trach colloar at 2L O2 and sats >90%. She has Shiley 6 trach, RT suctioning. She has 20ga IV to PAPITO. She has purewick in place and has yellow urine output. [id number] and no coverage needed.
--- NOTE | 2023-07-26 22:34 | NUR ---
care assumption this rn assumed care at 1900. vital signs stable. tele sr paced. patient is alert and oriented 2-3. patient uses call light appropriately and is able to make needs known. patient reports pain in back and received pain med per emar. see emar for further detials. patient reports no shortness of breath or chest pain/pressure. see shift assessment for further detials. purewick is in place. repositioned q2.
[2023-07-27 03:36] VITALS: BP 143/61
--- NOTE | 2023-07-27 05:12 | NUR ---
shift summary patient neuro remains unchaged. vital signs stable. trach collar in place at 5l bleed in. patient had inner cannula changed by rt. patient uses call light appropriately to make needs known. patient sleeping majority of this rn shift and has refused repositioned. pure wick in place. no acute changes.
[2023-07-27 07:38] VITALS: BP 150/55
--- NOTE | 2023-07-27 07:50 | NUR ---
PT RESTING IN BED WITH HER AT BEDSIDE. PT STATED 3/10 PAIN IN HER BACK, WAS MEDICATED PER EMAR BY COMMUNITY DEVELOPMENT AIDE. PT DENIES SOB, STATED SLIGHT CHEST DISCOMFORT, EDUCATED BY CHANDAN GRAY TO TAKE DEEP BREATHS, TRACH COLLAR & SPEAK VALVE IN PLACE, PT ON 5L. PT DENIES CHEST PAIN HR PACED 60'S. PW IN PLACE. CALL LIGHT WITHIN REACH.
--- NOTE | 2023-07-27 10:35 | NUR ---
PT UP TO CHAIR WITH WALKER AND SBA. MILD SOB NOTED WITH EXERTION. LEGS ELEVATED. PT IN ROOM VISITING WITH HER . CALL LIGHT WITHIN REACH.
--- NOTE | 2023-07-27 11:15 | NUR ---
PW WAS OUT OF PLACE AND PT NEEDED HER ATTENDS CHANGED. ATTENDS CHANGED, SKIN CLEANED, BENEDICT AREA CLEANED. HAD PT STAND UP WITH WALKER, PT TOLERATED WELL, ON RA O2 STAYED ABOVE 90%. PT DENIES SOB/CHEST PAIN/PRESSURE. CALL LIGHT WITHIN REACH.
[2023-07-27 11:16] VITALS: BP 140/68
--- NOTE | 2023-07-27 13:07 | NUR ---
PT UP WITH WALKER AND SBA BACK TO BED. PT STATED 5/10 LOWER BACK PAIN, MEDICATED PER EMAR. PT RECEIVING BREATHING TREATMENT RIGHT NOW. AT BEDSIDE. CALL LIGHT WITHIN REACH.
--- NOTE | 2023-07-27 14:06 | NUR ---
PT SLEEPING, AT BEDSIDE, CALL LIGHT WITHIN REACH.
[2023-07-27 15:39] VITALS: BP 135/49
--- NOTE | 2023-07-27 16:00 | NUR ---
PT COMPLAINED OF 7/10 BILATERAL RIB PAIN. MEDICATED PER EMAR. PT STATED SHE DID NOT WANT TO BE RE-POSITIONED AT THIS TIME. CALL LIGHT WITHIN REACH.
--- NOTE | 2023-07-27 16:56 | NUR ---
PT STATED PAIN LEVEL IS NOW 3/10. SHE STATED THAT SHE FEELS WARM, COOL RAG PLACED ON FOREHEAD, AND FAN RUNNING AND FACING PT. PT DOES NOT HAVE A FEVER. CALL LIGHT WITHIN REACH.
--- NOTE | 2023-07-27 18:11 | NUR ---
SHIFT SUMMARY PW CHANGED, ATTENDS CHANGED, BENEDICT AREA CLEANED, PT REPOSITIONED. NO ACUTE CHANGES, SEE PREVIOUS NOTES. PT ABOVE 91% ON RA, PT DENIES SOB. HR 60'S, BP STABLE, PT DENIES CHEST PAIN/PRESSURE. PT RESTING IN BED, CALL LIGHT WITHIN REACH.
[2023-07-27 20:11] VITALS: BP 144/54
--- NOTE | 2023-07-27 22:05 | NUR ---
CARE ASSUMPTIOON this rn assumed care at 0700. vital signs stable. tele paced 60-70s. spo2 >92% on trach collar humified at 4l. patient is alert and oriented 4. perrla. patient neuro is intact. patient is able to make needs known. patient has passy saida valve in room and patient uses to communicate. patient reports no shortness of breath or chest pain/pressure. patient reports back pain rated at 5-7, repositioning, rest, and pain meds per emar help relieve pain. see shift assessment for further detials. plan of care is up to date. linen and bed bath completed. pure wick changed. call light within reach
[2023-07-27 23:51] VITALS: BP 147/54
[2023-07-28 03:18] VITALS: BP 127/61
[2023-07-28 04:01] LABS: BASOPHILS ABSOLUTE AUTO 0.04 K/mm3 (0.00-0.23); BASOPHILS PERCENT AUTO 0 % (0-2); EOSINOPHILS ABSOLUTE AUTO 0.49 K/mm3 (0.00-0.68); EOSINOPHILS PERCENT AUTO 5 % (0-6); Hematocrit 28.8 % (33.0-51.0); Hemoglobin 9.1 g/dL (11.5-16.0); IMMATURE GRAN ABSOLUTE AUTO 0.51 K/mm3 (0.00-0.10); IMMATURE GRAN PERCENT AUTO 5 % (0-1); LYMPHOCYTES ABSOLUTE AUTO 2.75 K/mm3 (0.84-5.20); LYMPHOCYTES PERCENT AUTO 27 % (21-46); MONOCYTES ABSOLUTE AUTO 0.83 K/mm3 (0.16-1.47); MONOCYTES PERCENT AUTO 8 % (4-13); Mean Corpuscular HGB 27.5 pg (26.0-34.0); Mean Corpuscular HGB Conc 31.6 g/dL (31.5-36.5); Mean Corpuscular Volume 87 fL (80-100); Mean Platelet Volume 10.8 fL (9.1-12.4); NEUTROPHILS ABSOLUTE AUTO 5.55 K/mm3 (1.96-9.15); NEUTROPHILS PERCENT AUTO 55 % (41-73); Platelet Count 240 K/mm3 (150-400); RDW Coefficient Variation 14.9 % (11.7-14.2); RDW Standard Deviation 47.8 fL (35.1-46.3); Red Blood Cell Count 3.31 M/mm3 (3.80-5.20); White Blood Cell Count 10.17 K/mm3 (4.00-11.30)
[2023-07-28 04:08] LABS: Bun/Creatinine Ratio 24.4 (12.0-20.0); Calcium, Blood 8.2 mg/dL (8.5-10.1); Creatinine, Blood 0.53 mg/dL (0.40-1.00); Potassium, Blood 4.2 mmol/L (3.5-5.5)
--- NOTE | 2023-07-28 05:33 | NUR ---
shift summary patient neuro remains intact. vital signs stable. trach collar remains in place with spo2 >95%. patient suctioned twice this shift by this rn. patient reported back/rib pain and medicated per emar. tele called this rn to inform of a minute long flip to aflutter and then back to paced this rn informed md loza, no new orders placed. plan of care up to date. no acute changes.
[2023-07-28 07:08] VITALS: BP 136/45
--- NOTE | 2023-07-28 07:53 | NUR ---
PT RESTING IN BED AND TALKING WITH STAFF. O2 ABOVE 91% ON RA, PT DENIES SOB. HR 60'S, BP STABLE, PT DENIES CHEST PAIN/PRESSURE. PT STATED 4/10 RIB & LOWER BACK PAIN. CALL LIGHT WITHIN REACH.
--- NOTE | 2023-07-28 09:32 | NUR ---
SPEECH THERAPY WAS IN TO EVALUATE PT, ADVANCED TO MECHANICAL SOFT DIET AND THIN LIQUIDS. PT TOLERATED SWALLOWING ALL PILLS EXCEPT FOR LARGE PROBIOTIC CAPSULE, CAPSULE WAS OPENED AND POORED INTO APPLESAUCE THAT I USED TO MIX ALL MEDS WITH, PILLS GIVEN ONE AT A TIME, PER SPEECH THERAPY. PT IN WITH PHSYCIAL THERAPY NOW. CALL LIGHT WITHIN REACH.
--- NOTE | 2023-07-28 14:07 | NUR ---
PT WAS UP IN CHAIR UNTIL AROUND 11 THIS MORNING. PT'S LUNCH WAS HER FIRST MEAL ON NEW DIET OF MECHANICAL SOFT AND THIN LIQUIDS, PT TOLERATED WELL. PT'S MORNING CBG WAS 119, NOTIFIED, INSULIN GLARGINE ORDER CHANGED FROM 37 UNITS TO 20 UNITS, PER DOCTOR. PT CONTINUES TO BE ALERT AND ORIENTED. CONTINUES TO DENY SOB, 02 SATURATION ABOVE 93% ON RA. HR IN THE 60'S AND PACED, PT CONTINUES TO DENY CHEST PAIN/PRESSURE. POWERGLIDE IN UPPER RIGHT ARM FLUSHED AND SALINE LOCKED. TRACH COLOR WITH PASSY-MATT IN PLACE. RESPIRATORY THERAPIST PLANS ON MEETING WITH PATIENT AND HER TO GO OVER TRACH CARE AND SUCTIONING. ATTENDS AND PUREWICK IN PLACE AND SUCTIONING INTACT, URINE OUTPUT IS YELLOW AND NOT CLOUDY. PT COMPLAINED OF ITCHY SKIN ON HER BUTTOCKS AND UPPER LEGS, BARRIER CREAM WAS APPLIED, PT TOLERATED WELL, PT EDUCATED TO NOT ITCH THE AREA. SUCTIONING OF TRACH PERFORMED THIS MORNING, PT VERBALIZES WHEN SHE FEELS SHE NEEDS TO BE SUCTIONED. [facility] HER WHEN THEY HAVE A BED AVAILABLE. PT'S AT BEDSIDE, CALL LIGHT WITHIN REACH.
--- NOTE | 2023-07-28 18:57 | NUR ---
SHIFT SUMMARY NO ACUTE CHANGES, SEE PREVIOUS NOTES. PT CONTINUES TO BE A&OX4. PT SLEEPING SOUNDLY. CALL LIGHT WITHIN REACH.
[2023-07-28 21:27] VITALS: BP 165/66
[2023-07-29] VITALS (7 sets, daily range): BP systolic 137–165; BP diastolic 54–81
[2023-07-29 05:00] LABS: BASOPHILS ABSOLUTE AUTO 0.05 K/mm3 (0.00-0.23); BASOPHILS PERCENT AUTO 1 % (0-2); EOSINOPHILS ABSOLUTE AUTO 0.42 K/mm3 (0.00-0.68); EOSINOPHILS PERCENT AUTO 4 % (0-6); Hematocrit 30.6 % (33.0-51.0); Hemoglobin 9.5 g/dL (11.5-16.0); IMMATURE GRAN ABSOLUTE AUTO 0.43 K/mm3 (0.00-0.10); IMMATURE GRAN PERCENT AUTO 4 % (0-1); LYMPHOCYTES ABSOLUTE AUTO 2.41 K/mm3 (0.84-5.20); LYMPHOCYTES PERCENT AUTO 23 % (21-46); MONOCYTES ABSOLUTE AUTO 0.78 K/mm3 (0.16-1.47); MONOCYTES PERCENT AUTO 8 % (4-13); Mean Corpuscular HGB 27.1 pg (26.0-34.0); Mean Corpuscular Volume 87 fL (80-100); Mean Platelet Volume 10.7 fL (9.1-12.4); NEUTROPHILS ABSOLUTE AUTO 6.19 K/mm3 (1.96-9.15); NEUTROPHILS PERCENT AUTO 60 % (41-73); Platelet Count 246 K/mm3 (150-400); RDW Standard Deviation 47.8 fL (35.1-46.3); White Blood Cell Count 10.28 K/mm3 (4.00-11.30)
[2023-07-29 05:56] LABS: Bun/Creatinine Ratio 19.4 (12.0-20.0); Calcium, Blood 8.8 mg/dL (8.5-10.1); Creatinine, Blood 0.62 mg/dL (0.40-1.00); Potassium, Blood 4.5 mmol/L (3.5-5.5)
--- NOTE | 2023-07-29 14:01 | NUR ---
PT CONTINUES TO BE ALERT AND ORIENTED X 4, ANSWERS QUESTIONS APPROPRIATELY AND CAN MAKE HER NEEDS KNOWN. PT ON RA AND MAINTAINING O2 SATURATION ABOVE 93%, TRACH COLLAR IN PLACE WITH PASSY MATT VALVE. PT ABLE TO VOCALIZE WHEN TRACH SUCTION IS NEEDED, TRACH SUCTION PERFORMED, PT DENIES SOB. HR PACED AT 60'S, PT DENIES CHEST PRESSRE. PUREWICK WAS IN PLACE WITH ATTENDS AT BEGINNING OF SHIFT, PT NOW UP TO COMMODE, ATTENDS AND ESCOBAR PAD IN PLACE. PT HAS BEEN SCRATCHING HER SKIN, LOTION HAS BEEN APPLIED. AFTER LOTION APPLIED PT STILL COMPLAINED IF ITCHY SKIN, SHE STATED SHE THOUGHT THE WIPES MAY BE IRRITATING HER SKIN, SOAP AND WATER NOW USED TO CLEAN PATIENT. PT STATED HER SKIN NO LONGER FEELS ITCHY. PT'S AT BEDSIDE. PT HAS BEEN EATING AND DRINKING WELL. PT CONTINUES TO HAVE RIB/LOWER BACK PAIN, RESPOSITIONED AND MEDICATED PER EMAR. PT RESTING IN BED, CALL LIGHT WITHIN REACH.
--- NOTE | 2023-07-29 18:01 | NUR ---
SHIFT SUMMARY NO ACUTE CHANGES, SEE PREVIOUS NOTES. PT CONTINUES TO BE ON RA AND O2 SATURATION ABOVE 93%, PT DENIES SOB, TRACH COLLAR ON SUCTION PERFORMED WHEN NEEDED, PASSY MATT VALVE IN PLACE. PT CONTINUES TO USE BEDSIDE COMMODE, TOLERATING WELL. HR 60'S PACED, PT CONTINUES TO DENY CHEST PAIN/PRESSURE. CONTINUES TO HAVE RIB PAIN FROM CPR, PT MEDICATED PER EMAR. SOAP AND WATER CONTINUING TO BE USED TO CLEAN PT, PER PT REQUEST. PT RESTING IN ROOM EATING DINNER, CALL LIGHT WITHIN REACH.
--- NOTE | 2023-07-29 22:00 | NUR ---
ASSUMING CARE OF PT
[2023-07-30 04:16] VITALS: BP 155/57
--- NOTE | 2023-07-30 05:14 | NUR ---
SHIFT SUMMARY PT ALERT AND ORIENTED. BED ALARM ON FOR OCC CONFUSION. NO ACUTE CHANGES T/O SHIFT. BP STABLE, MAP ABOVE 65. HR STABLE. OXYGEN SATURATION MAINTAINED ABOVE 92% ON RA. PT ABLE TO TURN SELF IN BED NEEDED. PUREWICK IN PLACE. NO CP OR PRESSURE REPORTED. CALL LIGHT WITHIN REACH. WILL CONT TO MONITOR UNTIL REPORT GIVEN TO DAYSHIFT RN.
[2023-07-30 07:45] VITALS: BP 171/63
[2023-07-30 11:34] VITALS: BP 135/43
[2023-07-30 16:22] VITALS: BP 153/63
--- NOTE | 2023-07-30 18:51 | NUR ---
Pt has been alert, oriented, cooperative and pleasantly conversant today. Twice c/o rib/back pain associated with CPR. Medicated with oxycodone with good relief. She is also taking long acting morphine, which is a home medication for her. Also took Tylenol this evening for headache. Lung sounds clear upper lobes today. States that her secretions have been clear, thick this morning. This after noon since the trache was capped by RT at approx 12:30 she has been able to cough up her secretions orallly. She is on room air, without any respiratory difficulty all afternoon and evening so far. Activity is 1 person assistance to get up to the bedside commode or to the chair. She states she has been self repositioning in bed to prevent any skin breakdown from pressure.
[2023-07-30 19:56] VITALS: BP 139/48
[2023-07-30 23:43] VITALS: BP 154/62
[2023-07-31 04:01] VITALS: BP 114/65
--- NOTE | 2023-07-31 05:06 | NUR ---
SHIFT SUMMARY THIS RN ASSUMED CARE OF PATIENT AT 1900. PT A&O X4. ABLE TO MAKE NEEDS KNOWN. PACED RHYTHM WITH HR 60'S. BP STABLE. ON RA WITH HUMIDIFED AIR TO TRACHE OVERNIGHT. SPO2 >90%. SUCTIONING AND BREATHING TREATMENTS PRN. AFEBRILE. PUREWICK IN PLACE PER PATIENT REQUEST. PT IS ABLE TO REPOSITION SELF IN BED INDEPENDENTLY; ASSISTING WITH BOOSTING IN BED. PT TOLERATED DIET WELL. PRODUCTIVE COUGH NOTED. ROSALES THICK SECRETIONS SUCTIONED FROM TRACHE. BED IN LOWEST POSITION AND CALL LIGHT WITHIN REACH. THIS RN WILL REPORT TO ONCOMING RN.
--- NOTE | 2023-07-31 08:00 | NUR ---
Dr. Vasquez removed the tracheostomy tube this morning. The pt tolerated it very well, and is very happy that it is out. The wound was covered with sterile gauze and secured with tape by the doctor. Per his instructions, the wound will close up on its own and may only need a change of gauze if it becomes soiled. Pt was instructed to apply gentle pressure to the dressing when she speaks or coughs to facilitate quicker healing, per Dr. Vasquez.
[2023-07-31 09:33] VITALS: BP 138/52
--- NOTE | 2023-07-31 11:19 | NUR ---
The pt just returned from swallow study in imaging department. She tells me that there is no way that she is going to drink thickened liquids. 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
--- NOTE | 2023-07-31 12:07 | NUR ---
Spiritual Care Visit. Pt. is awake in bed and welcomes my visit. Pt. is pleasant. 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 Pt. displays evidence of engagement and awareness. During the the visit, Pts. spouse returned form lunch. Prayed with Pt. Pt. and spouse both verbalized gratitude for the spiritual care visit.
--- NOTE | 2023-07-31 14:19 | NUR ---
The patient met with ST today for an eval. She is still choking on thin liquids, and she is aware of this. However, she was willing to sign a new POLST changing her code status to DNR. New POLST filled out with pt, and v/o from Dr. Cifuentes for DNR.
[2023-07-31 15:00] VITALS: BP 168/54
--- NOTE | 2023-07-31 17:54 | NUR ---
Pt has tolerated having the tracheostomy tube out all day, very well. She does get mildly dyspneic with activity of transfers, using the bedside commode, etc. but without hypoxia and she recovers within 5 minutes with rest. She has needed oxycodone for pain today 2-3 times for the pain from CPR chest compressions in her ribs and back. She also has chronic pain for which she takes MS contin. Appetite good, voiding on BSC or with use of purwick. States she had a normal bowel movement yesterday. She worked with Occupational therapist today but declined to work with the physical therapist, stating that she was too tired.
[2023-07-31 20:11] VITALS: BP 168/53
--- NOTE | 2023-07-31 22:47 | NUR ---
ASSUMPTION OF CARE/TRANSFER NOTE THIS RN ASSUMED CARE OF PATIENT AT 1900. PT A&OX4. ABLE TO MAKE NEEDS KNOWN. VITALS STABLE. PT ON RA WITH SPO2 >90%. DENIES SOB. DRESSING ON NECK C/D/I. THIS RN GAVE REPORT TO CHUN GRAY AT [id number]. PT TO BE TRANSFERRED TO MEDICAL FLOOR AT THIS TIME.
[2023-08-01 03:10] VITALS: BP 147/44
--- NOTE | 2023-08-01 06:31 | NUR ---
SHIFT SUMMARY [id number] REPORT FROM DAMIEN RN - PT TRANSFERRED TO ROOM 305 VIA JULIO CESAR, PT ON DROPLET PRECAUTIONS, ASSESSMENT DONE 2 NURSE SKIN DONE WITH TOO Mejia RN, PT UP TO BSC - PT HAS INCREASED WEAKNESS - PLACE PUREWICK ONCE PT RETURNED TO BED, PT REQUESTED PAIN MEDICATION FOR RIB AND BACK PAIN
[2023-08-01 07:42] VITALS: BP 152/65
[2023-08-01 11:55] LABS: SARS-Cov-2 (COVID-19) PCR, MMC NEGATIVE (NEGATIVE)
[2023-08-01] MEDS ORDERED: B-1100 M1 PO (15:12)
[2023-08-01] MEDS ORDERED: MICONAZOLE NIT130 GM TOP (15:12)
--- NOTE | 2023-08-01 15:43 | NUR ---
RN NOTE PLAN FOR DISCHARGE TO [facility] TODAY. TRANSPORT SCHEDULED FOR 1730HRS. POWERGLIDE REMOVED INTACT AND PT DRESSED AND READY FOR TRANSPORT. REPORT CALLED TO GABE AT [facility] PT'S IS IN HER ROOM WITH HER AND AWARE OF THE PLAN. HE HAS BEEN INVOLVED IN HER CARE AND SUPPORTIVE. MS ESPINOZA HAS BEEN SITTING UP IN THE CHAIR, WORKED WITH O.T., POSITIVE ATTITUDE, [facility], ASKS APPROPRIATE QUESTIONS. PAIN HELPED WITH MEDICATIONS, MAINLY C/O RIB AND BACK PAIN. CALL LIGHT IN REACH.
[2023-08-01 16:53] VITALS: BP 156/67
--- NOTE | 2023-08-01 19:26 | NUR ---
DISCHARGE NOTE MS ESPINOZA WAS TRANSFERED VIA [facility] TO [facility] AT 1825HRS. NO NEW PROBLEMS OR CONCERNS VOICED AT TIME OF DISCHARGE. HER WAS WITH HER AT TRANSFER.
== END 2023-08-01 18:25 | DRG 4 ==
LOC: ER 23:14 → ICUE 06-30 02:38 → PCU 06-30 02:38 → ICUE 06-30 06:36 → PCU 07-26 13:01 → MEDS 07-31 23:15 → ENPENDDIS 08-01 13:51 → MEDS 08-01 18:25
PROVIDERS: Family Medicine; Internal Medicine; Internal Medicine Critical Care Medicine; Student in an Organized Health Care Education/Training Program; ADMIT Internal Medicine
PROC: 5A1955Z Respiratory Ventilation, Greater than 96 Consecutive Hours (ICD-10-PCS; principal; 2023-06-30)
PROC: 3E03329 Introduction of Other Anti-infective into Peripheral Vein, Percutaneous Approach (ICD-10-PCS; 2023-06-30)
PROC: 4A13XR1 Monitoring of Arterial Saturation, Peripheral, External Approach (ICD-10-PCS; 2023-06-30)
PROC: 3E033XZ Introduction of Vasopressor into Peripheral Vein, Percutaneous Approach (ICD-10-PCS; 2023-07-01)
PROC: 5A09357 Assistance with Respiratory Ventilation, Less than 24 Consecutive Hours, Continuous Positive Airway Pressure (ICD-10-PCS; 2023-07-01)
PROC: 0T9B70Z Drainage of Bladder with Drainage Device, Via Natural or Artificial Opening (ICD-10-PCS; 2023-07-12)
PROC: 0B113Z4 Bypass Trachea to Cutaneous, Percutaneous Approach (ICD-10-PCS; 2023-07-13)
PROC: 0DH67UZ Insertion of Feeding Device into Stomach, Via Natural or Artificial Opening (ICD-10-PCS; 2023-07-13)
PROC: 05H633Z Insertion of Infusion Device into Left Subclavian Vein, Percutaneous Approach (ICD-10-PCS; 2023-07-13)
PROC: 5A12012 Performance of Cardiac Output, Single, Manual (ICD-10-PCS; 2023-07-16)
DX: A41.02 Sepsis due to Methicillin resistant Staphylococcus aureus (principal); J96.21 Acute and chronic respiratory failure with hypoxia; J69.0 Pneumonitis due to inhalation of food and vomit; R65.21 Severe sepsis with septic shock; I46.2 Cardiac arrest due to underlying cardiac condition; I50.43 Acute on chronic combined systolic (congestive) and diastolic (congestive) heart failure; J96.02 Acute respiratory failure with hypercapnia; G06.0 Intracranial abscess and granuloma; G92.8 Other toxic encephalopathy; I21.A1 Myocardial infarction type 2; J15.0 Pneumonia due to Klebsiella pneumoniae; E87.29 Other acidosis; I48.92 Unspecified atrial flutter; I13.0 Hypertensive heart and chronic kidney disease with heart failure and stage 1 through stage 4 chronic kidney disease, or unspecified chronic kidney disease; J44.0 Chronic obstructive pulmonary disease with (acute) lower respiratory infection; E87.21 Acute metabolic acidosis; J98.11 Atelectasis; E87.1 Hypo-osmolality and hyponatremia; I48.20 Chronic atrial fibrillation, unspecified; E11.65 Type 2 diabetes mellitus with hyperglycemia; J44.9 Chronic obstructive pulmonary disease, unspecified; N18.9 Chronic kidney disease, unspecified; D63.1 Anemia in chronic kidney disease; G47.33 Obstructive sleep apnea (adult) (pediatric); I48.0 Paroxysmal atrial fibrillation; M10.9 Gout, unspecified; I25.10 Atherosclerotic heart disease of native coronary artery without angina pectoris; M19.90 Unspecified osteoarthritis, unspecified site; E11.51 Type 2 diabetes mellitus with diabetic peripheral angiopathy without gangrene; E78.5 Hyperlipidemia, unspecified; E03.9 Hypothyroidism, unspecified; I49.5 Sick sinus syndrome; I50.810 Right heart failure, unspecified; I27.20 Pulmonary hypertension, unspecified; E11.42 Type 2 diabetes mellitus with diabetic polyneuropathy; E87.6 Hypokalemia; M50.30 Other cervical disc degeneration, unspecified cervical region; M51.36 Other intervertebral disc degeneration, lumbar region; G89.4 Chronic pain syndrome; R19.7 Diarrhea, unspecified; E86.0 Dehydration; R13.12 Dysphagia, oropharyngeal phase; F41.9 Anxiety disorder, unspecified; F32.A Depression, unspecified; G43.909 Migraine, unspecified, not intractable, without status migrainosus; Z20.822 Contact with and (suspected) exposure to COVID-19; M79.7 Fibromyalgia; Z98.890 Other specified postprocedural states; Z87.891 Personal history of nicotine dependence; Z90.10 Acquired absence of unspecified breast and nipple; Z87.01 Personal history of pneumonia (recurrent); Z87.19 Personal history of other diseases of the digestive system; Z90.89 Acquired absence of other organs; Z85.3 Personal history of malignant neoplasm of breast; Z88.0 Allergy status to penicillin; Z88.8 Allergy status to other drugs, medicaments and biological substances; Z91.018 Allergy to other foods; Z79.890 Hormone replacement therapy; Z79.01 Long term (current) use of anticoagulants; Z79.899 Other long term (current) drug therapy; Z95.0 Presence of cardiac pacemaker; Z92.21 Personal history of antineoplastic chemotherapy; Z98.1 Arthrodesis status
CPT/HCPCS: 0202U; 31500; 31720; 36415; 36556; 36569; 36600; 51702; 51703; 71045; 71260; 74230; 80047; 80048; 80053; 80069; 80202; 81001; 82330; 82803; 82947; 83605; 83735; 83880; 84100; 84132; 84145; 84439; 84443; 84484; 85014; 85025; 85027; 85520; 85610; 85730; 86850; 86900; 86901; 87040; 87070; 87077; 87086; 87147; 87186; 87205; 92526; 92610; 92611; 93005; 93010; 93306; 94002; 94003; 94640; 94644; 94660; 94664; 94760; 94762; 96365-59; 96368; 96375-59; 97110; 97163; 97167; 97530; 97535; 99291-25; A9270; C1751; C9113; J0282; J0330; J0360; J0692; J0712; J1170; J1200; J1644; J1650; J1815; J1940; J2060; J2250; J2704; J2920; J2930; J3010; J3370; J3480; J7030; J7050; J7060; J7120; J7512; Q9967; U0002

== ENCOUNTER 2024-02-26 02:44 | Day surgery (SDC) | payer MEDICARE ==
[~2024-02-26 02:44] MED LIST changes: +ADVAIR INH; +ANASTROZOLE1 M7 PO; +ATOR40TA PO; +Amlodipine Bes2.5 MG PO; +B-1100 M1 PO; +Cymbalta20 MG PO; +DYCYCLOMINE; +HYDHCL25 PO; +INSULANI SC; +INSULIN AS100 UNIT/6 SC; +LIDO5TO TOP; +LIDO700A20 TOP; +MICONAZOLE NIT130 GM TOP; +NITR.4SL SL; +PROLIA60 MG/1 ML SC; +SYNJARDY 12.5-1 EAC3 PO
[2024-02-26] MEDS ORDERED: Sod Ferric Gluc Complx/Sucrose 125 MG in NS 100 ML IV SCH (06:00)
[2024-02-26 15:33] VITALS: BP 149/69
== END 2024-02-26 17:00 | disposition home or self-care (01) ==
LOC: ATC 02:44
DX: D50.8 Other iron deficiency anemias (principal); I13.0 Hypertensive heart and chronic kidney disease with heart failure and stage 1 through stage 4 chronic kidney disease, or unspecified chronic kidney disease; E11.22 Type 2 diabetes mellitus with diabetic chronic kidney disease; N18.2 Chronic kidney disease, stage 2 (mild); I50.42 Chronic combined systolic (congestive) and diastolic (congestive) heart failure; I25.10 Atherosclerotic heart disease of native coronary artery without angina pectoris; I48.0 Paroxysmal atrial fibrillation; E03.9 Hypothyroidism, unspecified; E78.2 Mixed hyperlipidemia; J44.9 Chronic obstructive pulmonary disease, unspecified; K21.9 Gastro-esophageal reflux disease without esophagitis; Z88.0 Allergy status to penicillin; Z88.2 Allergy status to sulfonamides; Z88.8 Allergy status to other drugs, medicaments and biological substances; Z79.01 Long term (current) use of anticoagulants; Z79.4 Long term (current) use of insulin; Z79.890 Hormone replacement therapy; Z79.899 Other long term (current) drug therapy
CPT/HCPCS: 96365; J2916

== ENCOUNTER 2024-04-08 02:52 | Day surgery (SDC) | payer MEDICARE ==
[~2024-04-08 02:52] MED LIST changes: +Sod Ferric Gluc Complx/Sucrose 125 MG in NS 100 ML IV SCH
[2024-04-08 13:59] VITALS: BP 129/64
== END 2024-04-08 14:59 | disposition home or self-care (01) ==
LOC: ATC 02:52
DX: D50.8 Other iron deficiency anemias (principal); I13.0 Hypertensive heart and chronic kidney disease with heart failure and stage 1 through stage 4 chronic kidney disease, or unspecified chronic kidney disease; E11.22 Type 2 diabetes mellitus with diabetic chronic kidney disease; N18.2 Chronic kidney disease, stage 2 (mild); I50.9 Heart failure, unspecified; E03.9 Hypothyroidism, unspecified; E78.2 Mixed hyperlipidemia; I48.0 Paroxysmal atrial fibrillation; K21.9 Gastro-esophageal reflux disease without esophagitis; Z88.0 Allergy status to penicillin; Z88.8 Allergy status to other drugs, medicaments and biological substances; Z79.01 Long term (current) use of anticoagulants; Z79.4 Long term (current) use of insulin; Z79.890 Hormone replacement therapy; Z79.899 Other long term (current) drug therapy
CPT/HCPCS: 96365; J2916

== ENCOUNTER 2024-07-02 13:11 | Emergency (ER) | payer OTHER ==
[~2024-07-02] VITALS: Ht 152.4 cm; Wt 58.5 kg
[~2024-07-02 13:11] MED LIST changes: -Sod Ferric Gluc Complx/Sucrose 125 MG in NS 100 ML IV SCH
[2024-07-02] MEDS ORDERED: MethylPREDNISolone Sod Succ 125 MG Vial IV ONE (14:00)
[2024-07-02] MEDS ORDERED: Diltiazem HCl 5 MG / ML 5ML Vial IV ONE (14:10)
[2024-07-02 14:26] LABS: BASOPHILS ABSOLUTE AUTO 0.05 K/mm3 (0.00-0.23); BASOPHILS PERCENT AUTO 1 % (0-2); EOSINOPHILS ABSOLUTE AUTO 0.29 K/mm3 (0.00-0.68); EOSINOPHILS PERCENT AUTO 3 % (0-6); Hematocrit 36.9 % (33.0-51.0); Hemoglobin 12.5 g/dL (11.5-16.0); IMMATURE GRAN ABSOLUTE AUTO 0.17 K/mm3 (0.00-0.10); IMMATURE GRAN PERCENT AUTO 2 % (0-1); LYMPHOCYTES ABSOLUTE AUTO 2.22 K/mm3 (0.84-5.20); LYMPHOCYTES PERCENT AUTO 22 % (21-46); MONOCYTES ABSOLUTE AUTO 0.89 K/mm3 (0.16-1.47); MONOCYTES PERCENT AUTO 9 % (4-13); Mean Corpuscular HGB 31.3 pg (26.0-34.0); Mean Corpuscular HGB Conc 33.9 g/dL (31.5-36.5); Mean Corpuscular Volume 92 fL (80-100); Mean Platelet Volume 9.6 fL (9.1-12.4); NEUTROPHILS ABSOLUTE AUTO 6.68 K/mm3 (1.96-9.15); NEUTROPHILS PERCENT AUTO 65 % (41-73); Platelet Count 254 K/mm3 (150-400); RDW Coefficient Variation 13.8 % (11.7-14.2); RDW Standard Deviation 46.8 fL (35.1-46.3)
[2024-07-02] MEDS ORDERED: levalbuterol HCL 1.25 MG/3 ML VIAL INH ONE (14:30)
[2024-07-02 14:55] LABS: Bun/Creatinine Ratio 22.3 (12.0-20.0); Calcium, Blood 9.7 mg/dL (8.5-10.1); Creatinine, Blood 0.9 mg/dL (0.40-1.00); Potassium, Blood 3.6 mmol/L (3.5-5.5)
[2024-07-02 15:16] LABS: Free Thyroxine 0.92 ng/dL (0.70-1.60); Magnesium, Blood 2.1 mg/dL (1.6-2.4); Thyroid Stimulating Hormone 2.12 uIU/mL (0.360-4.800)
[2024-07-02] MEDS ORDERED: Morphine Sulfate 4 MG/1 ML Injection IV ONE (15:50)
[2024-07-02] MEDS ORDERED: PRED20 PO (16:44)
[2024-07-02] MEDS ORDERED: Acetaminophen650 M1 PO (16:44)
[2024-07-02 18:00] VITALS: BP 143/80
== END 2024-07-02 18:20 | disposition home or self-care (01) ==
LOC: ER 13:11
PROVIDERS: Emergency Medicine
DX: J44.1 Chronic obstructive pulmonary disease with (acute) exacerbation (principal); I48.91 Unspecified atrial fibrillation; R07.89 Other chest pain; Z88.0 Allergy status to penicillin; Z88.1 Allergy status to other antibiotic agents; Z91.018 Allergy to other foods; Z79.899 Other long term (current) drug therapy; Z79.85 Long-term (current) use of injectable non-insulin antidiabetic drugs; Z79.4 Long term (current) use of insulin; I50.32 Chronic diastolic (congestive) heart failure; N18.9 Chronic kidney disease, unspecified; Z85.3 Personal history of malignant neoplasm of breast; I25.2 Old myocardial infarction; Z87.891 Personal history of nicotine dependence
CPT/HCPCS: 71045; 80048; 83735; 83880; 84439; 84443; 84484; 85025; 85379; 94640; 94664; J2270; J2919; J7614

== ENCOUNTER 2024-07-27 06:16 | Day surgery (SDC) | payer OTHER ==
[~2024-07-27] VITALS: Ht 152.4 cm; Wt 58.7 kg
[2024-07-27] VITALS (8 sets, daily range): BP systolic 106–125; BP diastolic 48–64
[~2024-07-27 06:16] MED LIST changes: +Acetaminophen650 M1 PO; +FLUTICASONE-SA1 EAC2 INH; +NALOXONE H0.4 MG/1 M; +PRED20 PO; +ROPI1 PO; +SENNA LAXATIVE8.6 MG PO; +TRAZ50 PO
[2024-07-27] MEDS ORDERED: Heparin Sodium 1000 Units/ML 10ML MDV ONE (07:14)
[2024-07-27] MEDS ORDERED: NS 1,000 ML IV ONE ×2 (07:14→07:33)
[2024-07-27] MEDS ORDERED: NS 500 ML IV ONE (07:14)
[2024-07-27] MEDS ORDERED: Midazolam HCl 1MG / ML 2ML Vial ONE ×2 (07:32→08:14)
[2024-07-27] MEDS ORDERED: FentaNYL Citrate 50 MCG/ML 2 ML Injection ONE ×2 (07:33→08:14)
[2024-07-27] MEDS ORDERED: Clopidogrel Bisulfate 300 MG Cap ONE (09:13)
--- NOTE | 2024-07-27 09:36 | NUR ---
PT BACK TO RECOVERY ROOM. DR CROSS IN TO SPEAK WITH PT.
[2024-07-27] MEDS ORDERED: MESALAMINE (10:10)
[2024-07-27] MEDS ORDERED: ASPI81CH PO (10:11)
[2024-07-27] MEDS ORDERED: CLOP75 PO (10:12)
--- NOTE | 2024-07-27 10:30 | NUR ---
PT SITTING UP AT 30 DEGREES. PT ABLE TO TAKE PLAVIX 300MG PO AND SIPS OF WATER. PT GIVEN SNACKS. PT DENIES NEEDS. PALPABLE PULSES TO L FOOT.
--- NOTE | 2024-07-27 11:45 | NUR ---
PT SPOSUE AT BEDSIDE. STS HE NEEDS TO GO TO DR APPOINTMENT AND WILL BE BACK TO PICK PT UP.
--- NOTE | 2024-07-27 12:44 | NUR ---
PT UP TO BR AND BACK TO BED. R GROIN SITE SOFE, NON TENDER, NO BLEEDING. WAITING FOR PT SPOUSE TO COME AFTER HIS DR APPOINTMENT.
--- NOTE | 2024-07-27 13:50 | NUR ---
PT VERBALIZE D/C INSTRUCTIONS. IV D/C CATHETER INTACT. PT DRESSED AND WAITING FOR SPOUSE.
--- NOTE | 2024-07-27 14:30 | NUR ---
PT WHEELED OUT TO CAR.
== END 2024-07-27 14:30 | disposition home or self-care (01) ==
LOC: MHTC 06:16
DX: E11.51 Type 2 diabetes mellitus with diabetic peripheral angiopathy without gangrene (principal); I70.222 Atherosclerosis of native arteries of extremities with rest pain, left leg; I25.10 Atherosclerotic heart disease of native coronary artery without angina pectoris; I13.0 Hypertensive heart and chronic kidney disease with heart failure and stage 1 through stage 4 chronic kidney disease, or unspecified chronic kidney disease; E11.22 Type 2 diabetes mellitus with diabetic chronic kidney disease; N18.9 Chronic kidney disease, unspecified; I50.9 Heart failure, unspecified; E03.9 Hypothyroidism, unspecified; J44.9 Chronic obstructive pulmonary disease, unspecified; K21.9 Gastro-esophageal reflux disease without esophagitis; E78.5 Hyperlipidemia, unspecified; Z87.891 Personal history of nicotine dependence; Z88.0 Allergy status to penicillin; Z88.2 Allergy status to sulfonamides; Z88.8 Allergy status to other drugs, medicaments and biological substances; Z79.899 Other long term (current) drug therapy; Z79.01 Long term (current) use of anticoagulants; Z79.890 Hormone replacement therapy
CPT/HCPCS: 76937; 85347; 99152; 99153; A9270; C1725; C1753; C1760; C1769; C1887; C1894; J1644; J2250; J3010; J7030; J7050; Q9967

== ENCOUNTER 2024-08-10 06:29 | Day surgery (SDC) | payer OTHER ==
[~2024-08-10] VITALS: Ht 152.4 cm; Wt 58.7 kg
[~2024-08-10 06:29] MED LIST changes: +CLOP75 PO; +MESALAMINE
[2024-08-10] MEDS ORDERED: NS 500 ML IV ONE (06:55)
[2024-08-10] MEDS ORDERED: Heparin Sodium 1000 Units/ML 10ML MDV ONE ×3 (06:56→08:36)
[2024-08-10] MEDS ORDERED: Nitroglycerin 2 MG/20 ML BTL ONE (06:56)
[2024-08-10] MEDS ORDERED: NS 1,000 ML IV ONE ×2 (06:56→07:54)
[2024-08-10] MEDS ORDERED: Isosorbide Mono30 MG PO (07:04)
[2024-08-10 07:14] VITALS: BP 123/69
[2024-08-10] MEDS ORDERED: FentaNYL Citrate 50 MCG/ML 2 ML Injection ONE (07:54)
[2024-08-10] MEDS ORDERED: Midazolam HCl 1MG / ML 2ML Vial ONE (07:54)
[2024-08-10 09:46] VITALS: BP 107/53
--- NOTE | 2024-08-10 09:54 | NUR ---
Pt arrives back to recovery unit at this time. Pt. alert and oriented, resting comfortably in bed. bear hugger warmer at bedside. Pt vss upon arrival to unit. pt remains flat in bed, with left groin access site. small dime sized ooze to dressing. soft, non tender. distal pulses present. Pt. to bedside. pt requesting to sleep prior to foods/fluids.
[2024-08-10 10:03] VITALS: BP 86/47
[2024-08-10 10:15] VITALS: BP 91/43
[2024-08-10 10:23] VITALS: BP 93/49
--- NOTE | 2024-08-10 10:35 | NUR ---
Dr. anthony at bedside to update pt and . Pt left groin site remains wnl, unchanged from previous assessment, soft and non tender. Pt sleeping int. at bedside. VSS.
[2024-08-10 11:00] VITALS: BP 99/45
--- NOTE | 2024-08-10 12:30 | NUR ---
reviewed discharge inastructions with patient, patient verabalized understanding of instructions and precautions. patient discharged via wheel cair to car. driving
== END 2024-08-10 13:11 | disposition home or self-care (01) ==
LOC: MHTC 06:29
DX: E11.51 Type 2 diabetes mellitus with diabetic peripheral angiopathy without gangrene (principal); I25.10 Atherosclerotic heart disease of native coronary artery without angina pectoris; J44.9 Chronic obstructive pulmonary disease, unspecified; E78.5 Hyperlipidemia, unspecified; E03.9 Hypothyroidism, unspecified; I12.9 Hypertensive chronic kidney disease with stage 1 through stage 4 chronic kidney disease, or unspecified chronic kidney disease; E11.22 Type 2 diabetes mellitus with diabetic chronic kidney disease; N18.9 Chronic kidney disease, unspecified; K21.9 Gastro-esophageal reflux disease without esophagitis; Z79.899 Other long term (current) drug therapy; Z88.0 Allergy status to penicillin; Z88.2 Allergy status to sulfonamides; Z88.8 Allergy status to other drugs, medicaments and biological substances; Z91.048 Other nonmedicinal substance allergy status
CPT/HCPCS: 37225; 37252; 75716; 76937; 99152; 99153; C1714; C1725; C1753; C1760; C1769; C1884; C1887; C1894; C2623; J1644; J2250; J3010; J7030; J7050; Q9967

== ENCOUNTER 2025-03-27 10:36 | Emergency (ER) | payer OTHER ==
[~2025-03-27] VITALS: Ht 149.9 cm; Wt 57.2 kg
[~2025-03-27 10:36] MED LIST changes: +Isosorbide Mono30 MG PO
[2025-03-27 11:52] LABS: BASOPHILS ABSOLUTE AUTO 0.07 K/mm3 (0.00-0.23); BASOPHILS PERCENT AUTO 1 % (0-2); EOSINOPHILS ABSOLUTE AUTO 0.23 K/mm3 (0.00-0.68); EOSINOPHILS PERCENT AUTO 2 % (0-6); Hematocrit 40.9 % (33.0-51.0); Hemoglobin 13.6 g/dL (11.5-16.0); IMMATURE GRAN ABSOLUTE AUTO 0.22 K/mm3 (0.00-0.10); IMMATURE GRAN PERCENT AUTO 2 % (0-1); LYMPHOCYTES ABSOLUTE AUTO 2.12 K/mm3 (0.84-5.20); LYMPHOCYTES PERCENT AUTO 21 % (21-46); MONOCYTES ABSOLUTE AUTO 0.71 K/mm3 (0.16-1.47); MONOCYTES PERCENT AUTO 7 % (4-13); Mean Corpuscular HGB 30.6 pg (26.0-34.0); Mean Corpuscular HGB Conc 33.3 g/dL (31.5-36.5); Mean Corpuscular Volume 92 fL (80-100); Mean Platelet Volume 9.9 fL (9.1-12.4); NEUTROPHILS ABSOLUTE AUTO 6.73 K/mm3 (1.96-9.15); NEUTROPHILS PERCENT AUTO 67 % (41-73); Platelet Count 266 K/mm3 (150-400); RDW Coefficient Variation 14.6 % (11.7-14.2); RDW Standard Deviation 48.4 fL (35.1-46.3); Red Blood Cell Count 4.45 M/mm3 (3.80-5.20); White Blood Cell Count 10.08 K/mm3 (4.00-11.30)
[2025-03-27 12:03] LABS: International Normalized Ratio 0.99; Prothrombin Time Results 10.9 Sec (9.7-11.5)
[2025-03-27 12:11] LABS: Albumin, Blood 3.7 g/dL (3.4-5.0); Albumin/Globulin Ratio 1.1 (0.8-1.8); Bilirubin, Total 0.4 mg/dL (0.1-1.0); Bun/Creatinine Ratio 27.4 (12.0-20.0); Calcium, Blood 8.6 mg/dL (8.5-10.1); Creatinine, Blood 0.8 mg/dL (0.40-1.00); Globulin, Blood 3.4 g/dL (2.2-4.0); Total Protein, Blood 7.1 g/dL (6.4-8.2)
[2025-03-27] MEDS ORDERED: Neomycin/Polymyxin/Hydrocort Otic 10 ml LEFTEAR ONE (15:30)
[2025-03-27] MEDS ORDERED: Silver Nitr/Potassium Nitrate 1 EA APPL TOP ONE (15:40)
[2025-03-27 16:00] VITALS: BP 128/58
== END 2025-03-27 16:13 | disposition home or self-care (01) ==
LOC: ER 10:36
PROVIDERS: Student in an Organized Health Care Education/Training Program
DX: S09.91XA Unspecified injury of ear, initial encounter (principal); M19.90 Unspecified osteoarthritis, unspecified site; I48.91 Unspecified atrial fibrillation; I25.2 Old myocardial infarction; J44.9 Chronic obstructive pulmonary disease, unspecified; X58.XXXA Exposure to other specified factors, initial encounter; Z87.891 Personal history of nicotine dependence; Z79.82 Long term (current) use of aspirin; Z79.51 Long term (current) use of inhaled steroids; Z79.899 Other long term (current) drug therapy; Z79.02 Long term (current) use of antithrombotics/antiplatelets; Z88.0 Allergy status to penicillin; Z88.1 Allergy status to other antibiotic agents; Z88.8 Allergy status to other drugs, medicaments and biological substances; Z91.018 Allergy to other foods
CPT/HCPCS: 80053; 85025; 85610; 85730; 99283; A9270

== ENCOUNTER 2025-08-12 16:51 | Inpatient (IN) | payer OTHER ==
[~2025-08-12] VITALS: Ht 149.9 cm; Wt 63.0 kg
[2025-08-12] MEDS ORDERED: Cefepime HCl 1,000 MG in NS 100 ML IV ONE ×2 (17:05→19:20)
[2025-08-12] MEDS ORDERED: NS 1,000 ML IV SCH (18:30)
[2025-08-12] MEDS ORDERED: Vancomycin (Pharmacy Consult) IV SCH (18:30)
[2025-08-12] MEDS ORDERED: Ondansetron HCl 2 MG / ML 2ML Vial IV PRN (18:30)
[2025-08-12] MEDS ORDERED: Ipratropium/Albuterol SulF 2.5-0.5MG/3 ML Amp INH SCH (18:35)
[2025-08-12] MEDS ORDERED: GuaiFENesin 100 MG/5 ML 5ML UDC PO PRN (18:35)
[2025-08-12] MEDS ORDERED: Albuterol 2.5 MG/3 ML VIAL INH PRN (18:40)
[2025-08-12] MEDS ORDERED: FLU VACC TS2025(65UP)/MF59C/PF 45 MCG/0.5 ML SYRINGE IM SCH (18:45)
[2025-08-12] MEDS ORDERED: GuaiFENesin 100 MG/5 ML 5ML UDC PO ONE (19:00)
[2025-08-12 20:00] VITALS: BP 122/107
[2025-08-12] MEDS ORDERED: Insulin Human Lispro 100 Units/ML 3ML Syringe SC SCH (21:00)
[2025-08-12] MEDS ORDERED: Lactobacil 2-S.Thermo-Bifido 1 1 Cap PO SCH (21:00)
[2025-08-13] VITALS: BP 126/84
[2025-08-13] MEDS ORDERED: DEXTROMETHORPHAN/BENZOCAINE 1 EACH LOZENGE MT PRN (01:25)
[2025-08-13] MEDS ORDERED: FentaNYL Citrate 50 MCG/ML 2 ML Injection IV PRN (02:00)
[2025-08-13 04:00] VITALS: BP 129/60
[2025-08-13 06:20] LABS: BASOPHILS ABSOLUTE AUTO 0.06 K/mm3 (0.00-0.23); BASOPHILS PERCENT AUTO 0 % (0-2); EOSINOPHILS ABSOLUTE AUTO 0.00 K/mm3 (0.00-0.68); EOSINOPHILS PERCENT AUTO 0 % (0-6); Hematocrit 37.4 % (33.0-51.0); Hemoglobin 12.5 g/dL (11.5-16.0); IMMATURE GRAN ABSOLUTE AUTO 0.60 K/mm3 (0.00-0.10); IMMATURE GRAN PERCENT AUTO 4 % (0-1); LYMPHOCYTES ABSOLUTE AUTO 1.31 K/mm3 (0.84-5.20); LYMPHOCYTES PERCENT AUTO 8 % (21-46); MONOCYTES ABSOLUTE AUTO 0.23 K/mm3 (0.16-1.47); MONOCYTES PERCENT AUTO 1 % (4-13); Mean Corpuscular HGB Conc 33.4 g/dL (31.5-36.5); Mean Corpuscular Volume 93 fL (80-100); NEUTROPHILS ABSOLUTE AUTO 14.21 K/mm3 (1.96-9.15); NEUTROPHILS PERCENT AUTO 87 % (41-73); NRBC ABSOLUTE 0.00 K/mm3 (0.00-0.02); NRBC Auto 0.0 /100 WBC (0.0-0.2); Platelet Count 203 K/mm3 (150-400); RDW Coefficient Variation 14.6 % (11.7-14.2); RDW Standard Deviation 49.7 fL (35.1-46.3)
[2025-08-13 06:35] LABS: Alanine Aminotransfer (ALT/SGP 38.0 U/L (12-78); Albumin, Blood 2.9 g/dL (3.4-5.0); Albumin/Globulin Ratio 0.8 (0.8-1.8); Anion Gap 9.0 mmol/L (3-11); Aspartate Aminotrans (AST/SGOT 52.0 U/L (12-37); Bilirubin, Total 0.6 mg/dL (0.1-1.0); Blood Urea Nitrogen 26.0 mg/dL (8-24); CO2, Blood 25.0 mmol/L (21-32); Calcium, Blood 8.8 mg/dL (8.5-10.1); Chloride, Blood 106.0 mmol/L (98-108); Creatinine, Blood 0.75 mg/dL (0.40-1.00); Globulin, Blood 3.8 g/dL (2.2-4.0); Glucose, Blood 183.0 mg/dL (70-99); Magnesium, Blood 2.6 mg/dL (1.6-2.4); Potassium, Blood 5.0 mmol/L (3.5-5.5); Sodium, Blood 135.0 mmol/L (136-145); Total Protein, Blood 6.7 g/dL (6.4-8.2)
--- NOTE | 2025-08-13 06:42 | NUR ---
SHIFT NOTE PT WAS ADMITTED TO PCU 08/12/25@1930 FOR MANAGMENT OF PNEUMONIA. PT HAS HX OF COPD EMPHYSEMA, DM2, L BREAST MASTECTOMY, COLON RESECTION. AND MULTIPLE SPINAL SURGERIES, ICL CERVICAL AND LUMBAR. PT IS A&OX4, AN EXCELLENT HEALTH HISTORIAN. SHE FOLLOWS AND PERRLS, REQUIRES X1 STANDY ASSIST. PT REPORTS FALLING 1 DAY PRIOR TO ADMISSION DT DIZZINESS AND WEAKNESS. PT IS A/V PACED, ANTICOAGULATED FOR AFIB. BASELINE 2-4 L HOME O2, RQUIRING INCREASE TO 4.5-5 L ON HOSPITALIZATION. PATIENT HAS CHRONIC PAIN DT SPINAL SURGERIES, HAS HOME PAIN MANAGMENT REGIMINE. BLOOD CULTURES AND MRSA CULTURES PENDING. SPUTUM SAMPLE REMAINS OUTSTANDING OF END OF THIS SHIFT. PT HAS CUP AT BEDSIDE AND KNOWS TO CALL ONCE SAMPLE IS PROVIDED.
[2025-08-13 08:13] VITALS: BP 149/68
[2025-08-13] MEDS ORDERED: Cefepime HCl 2,000 MG in NS 100 ML IV SCH (09:00)
[2025-08-13] MEDS ORDERED: DULoxetine HCL 20 MG Cap DR PO SCH (10:00)
[2025-08-13] MEDS ORDERED: Tiotropium Bromide 2.5 MCG/ACT MIST INHAL (10 ACT/4 GM) INH SCH (10:30)
[2025-08-13] MEDS ORDERED: Lidocaine 4% 1 Patch TOP PRN (10:30)
[2025-08-13 11:14] VITALS: BP 135/66
[2025-08-13 12:19] LABS: Acinetobacter baumannii DNA Not Detected copy/mL (NOT DETECT); Chlamydia pneumonia Not Detected (NOT DETECT); Enterobacter cloacae DNA Not Detected copy/mL (NOT DETECT); Escherichia coli DNA Not Detected copy/mL (NOT DETECT); Haemophilus influenzae DNA Not Detected copy/mL (NOT DETECT); Human Coronavirus RNA Not Detected (NOT DETECT); Human Metapneumovirus RNA Not Detected (NOT DETECT); Influenza virus A RNA Not Detected (NOT DETECT); Influenza virus B RNA Not Detected (NOT DETECT); Klebsiella aerogenes DNA Not Detected copy/mL (NOT DETECT); Klebsiella oxytoca DNA Not Detected copy/mL (NOT DETECT); Klebsiella pneumoniae DNA Not Detected copy/mL (NOT DETECT); Moraxella catarrhalis DNA Not Detected copy/mL (NOT DETECT); Proteus sp DNA Not Detected copy/mL (NOT DETECT); Pseudomonas aeruginosa DNA Not Detected copy/mL (NOT DETECT); Respiratory syncytial Vir RNA Not Detected (NOT DETECT); Rhinovirus+Enterovirus RNA Not Detected (NOT DETECT); Serratia marcescens DNA Not Detected copy/mL (NOT DETECT); Staphylococcus aureus DNA Not Detected copy/mL (NOT DETECT); Streptococcus agalactiae DNA Not Detected copy/mL (NOT DETECT); Streptococcus pneumoniae DNA Not Detected copy/mL (NOT DETECT); Streptococcus pyogenes DNA Not Detected copy/mL (NOT DETECT)
--- NOTE | 2025-08-13 14:23 | NUR ---
SHIFT SUMMARY/ ASSUMPTION OF CARE: PT A&OX4. FOLLOW COMMANDS AND MAKES NEEDS KNOWN TO STAFF. PT HAS ABLE TO WALK AROUND UNIT WITH FWW. HAS BEEN SITTING UP IN CHAIR MOST OF THE DAY. USING BATHROOM. FLUIDS STOPPED. DENIES ANY COMPLAINTS OF CP, PRESSURE, TIGHTNESS OR SOB. VSS. NO SIGNIFICANT EVENTS HAPPENED DURING THIS SHIFT. REPORT TO JENY B TO ASSUME CARE OF PT.
[2025-08-13 15:14] VITALS: BP 143/66
--- NOTE | 2025-08-13 18:20 | NUR ---
TRANSFER OF CARE NOTE; NO ACUTE CHANGE FOR THE SHIFT. PT HAS BEEN AMBULATORY IN THE ROOM VIA PERONAL WALKER SBA. VITALS HAS BEEN STABLE. PT HAS BEEN CALLING APPROPRIATELY. ON 3L OF O2, SATS KEPT ABOVE 90%. CBG 200'S, SLIDING SCALE COVERAGE. NO OTHER ISSUES REPORTED FOR THE SHIFT. WILL REPORT TO ONCOMING SHIFT
[2025-08-13 20:00] VITALS: BP 143/51
[2025-08-13] MEDS ORDERED: Ondansetron HCl 2 MG / ML 2ML Vial IV PRN (21:45)
[2025-08-14 02:45] VITALS: BP 120/100
[2025-08-14 04:09] LABS: Hematocrit 36.2 % (33.0-51.0); Hemoglobin 12.0 g/dL (11.5-16.0); Mean Corpuscular HGB Conc 33.1 g/dL (31.5-36.5); Mean Corpuscular Volume 94 fL (80-100); NRBC ABSOLUTE 0.00 K/mm3 (0.00-0.02); NRBC Auto 0.0 /100 WBC (0.0-0.2); Platelet Count 255 K/mm3 (150-400); RDW Coefficient Variation 14.9 % (11.7-14.2); RDW Standard Deviation 51.1 fL (35.1-46.3)
--- NOTE | 2025-08-14 05:17 | NUR ---
SHIFT SUMMARY NO ACUTE CHANGES FOR THE SHIFT. PT HAD ONE EP OF NV THAT WAS MANAGED WELL WITH ZOFRAN. VSS. NO INSULIN COVERAGE. PATIENT SLEPT MOST OF THE NIGHT.
[2025-08-14 07:18] VITALS: BP 154/63
[2025-08-14 08:44] LABS: Vancomycin, Trough 15.3 ug/mL (5.0-10.0)
[2025-08-14] MEDS ORDERED: Calcium 500 MG/Vit D 200 Units Tab PO SCH (09:00)
[2025-08-14] MEDS ORDERED: Isosorbide Mononitrate 30 MG TABCR PO SCH (09:00)
[2025-08-14 16:13] VITALS: BP 151/71
[2025-08-14 17:53] VITALS: BP 133/65
--- NOTE | 2025-08-14 17:53 | NUR ---
PT SUMMARY; PT HAS BEEN C/O NAUSEA THIS MORNING PT WAS GIVEN A DOSE OF ZOFRAN THEN PHENERGAN AROUND LUNCH PT WAS ABLE TO TAKE A NAP AND HAD LATE LUNCH/DINNER. PT REFUSED DINNER. VITALS HAS BEEN STABLE. PT HAS BEEN AMBULATING TO THE BATHROOM VIA WALKER NO ISSUES. AT THE BEDSIDE MOST OF THE SHIFT, CALLED AND MADE AWARE OF THE PT TRANSFER. PT TO DISCHARGE TOMORROW IF STABLE. PT TRANSFERRED TO MEDICAL FLOOR RM 338 REPORT GIVEN TO DIVYA GRAY. PT ACCOMPANIED VIA WHEELCHAIR FOR TRANSFER. ALL BELONGINGS SENT WITH THE PT.
--- NOTE | 2025-08-14 18:14 | NUR ---
TRANSFER PT ARRIVED TO ROOM 338 AT APROX 1800. PT ORIENTED TO ROOM. PT ALERT, ORIENTED, ABLE TO MAKE NEEDS KNOWN. PT VERY SHORT OF BREATH WITH MIN ACTIVITY. PT MUST BE LAYING/SITTING AT AN INCLINE IN ORDER TO BREATH AND NOT FEEL SO SHORT OF BREATH. PT UP WITH STAND BY ASSIST WITH HER WALKER-PT RECENTLY HAD A FALL. PT HAS CALL LIGHT WITHIN REACH.
[2025-08-14 19:33] VITALS: BP 159/68
[2025-08-14] MEDS ORDERED: NS 250 ML IV PRN (19:55)
[2025-08-14] MEDS ORDERED: Metoclopramide HCl 5MG / ML 2ML Vial IV ONE (22:00)
[2025-08-14] MEDS ORDERED: Ondansetron HCl 2 MG / ML 2ML Vial IV PRN ×2 (22:00→22:05)
[2025-08-15 02:45] VITALS: BP 142/62
--- NOTE | 2025-08-15 05:01 | NUR ---
SHIFT SUMMARY: PT AOX4, 1PA/SBA WITH WALKER. PT CALLS APPROPRAITELY AND ABLE TO MAKE NEEDS KNOWN. HAD A FIT OF N/V. COULDNT KEEP PO PROMETHAZINE DOWN. IV ZOFRAN ORDERED. PT TOLERATED WELL. SOME PAIN CONTROLED VIA EMR. PT TOLERATING MEDICATIONS WELL AND CURRENTLY SLEEPING ON CPAP. SOME URGENCY TO VOID, BUT OTHERWISE NO COMPLAINTS. PT IN BED RESTING, BED IN LOWEST POSITION, CALL LIGHT IN REACH. CONTINUING CARE.
[2025-08-15 07:47] VITALS: BP 132/86
[2025-08-15 08:41] LABS: Hematocrit 41.6 % (33.0-51.0); Hemoglobin 13.4 g/dL (11.5-16.0); Mean Corpuscular HGB Conc 32.2 g/dL (31.5-36.5); Mean Corpuscular Volume 96 fL (80-100); NRBC ABSOLUTE 0.02 K/mm3 (0.00-0.02); NRBC Auto 0.2 /100 WBC (0.0-0.2); Platelet Count 279 K/mm3 (150-400); RDW Coefficient Variation 15.0 % (11.7-14.2); RDW Standard Deviation 52.2 fL (35.1-46.3)
[2025-08-15 09:00] LABS: Albumin, Blood 3.1 g/dL (3.4-5.0); Anion Gap 5 mmol/L (3-11); Blood Urea Nitrogen 17 mg/dL (8-24); CO2, Blood 27 mmol/L (21-32); Calcium, Blood 9.3 mg/dL (8.5-10.1); Chloride, Blood 111 mmol/L (98-108); Creatinine, Blood 0.82 mg/dL (0.40-1.00); Glucose, Blood 114 mg/dL (70-99); Phosphorus, Blood 3.2 mg/dL (2.5-4.9); Potassium, Blood 3.5 mmol/L (3.5-5.5); Sodium, Blood 139 mmol/L (136-145)
[2025-08-15] MEDS ORDERED: DOXY100 PO (10:48)
[2025-08-15] MEDS ORDERED: DELTASONE20 MG PO (10:48)
--- NOTE | 2025-08-15 12:40 | NUR ---
DISCHARGE PT DISCHARGED HOME. DISCHARGE INSTRUCTIONS REVIEWED WITH PT AND HER SPOUSE BY PRISCILA DIEHL RN. NEW RX SENT TO [facility] PER HER REQUEST. SPOUSE PICKED UP MEDICATIONS PRIOR TO DISCHARGE. PT SENT HOME WITH HOME O2 TANKS. PT ABLE TO STAND AND AMBULATE TO AND WHEELED DOWN TO EXIT BY SUPPLY ASSISTANT. IV REMOVED BY FAZAL GRAY. PT REPORTS HAVING ALL BELONGINGS.
== END 2025-08-15 12:33 | disposition home or self-care (01) | DRG 871 ==
LOC: ER 16:51 → MEDS 18:27 → PCU 18:27 → MEDS 08-14 17:34 → ENPENDDIS 08-15 10:30 → MEDS 08-15 12:33
PROVIDERS: Internal Medicine; Nurse Practitioner Acute Care; ADMIT Student in an Organized Health Care Education/Training Program
DX: A41.9 Sepsis, unspecified organism (principal); J18.9 Pneumonia, unspecified organism; J96.21 Acute and chronic respiratory failure with hypoxia; I13.0 Hypertensive heart and chronic kidney disease with heart failure and stage 1 through stage 4 chronic kidney disease, or unspecified chronic kidney disease; I50.32 Chronic diastolic (congestive) heart failure; J44.0 Chronic obstructive pulmonary disease with (acute) lower respiratory infection; J44.1 Chronic obstructive pulmonary disease with (acute) exacerbation; R65.20 Severe sepsis without septic shock; I25.10 Atherosclerotic heart disease of native coronary artery without angina pectoris; N18.9 Chronic kidney disease, unspecified; D63.1 Anemia in chronic kidney disease; I25.2 Old myocardial infarction; I48.91 Unspecified atrial fibrillation; M79.7 Fibromyalgia; M19.90 Unspecified osteoarthritis, unspecified site; M10.9 Gout, unspecified; E11.22 Type 2 diabetes mellitus with diabetic chronic kidney disease; I48.0 Paroxysmal atrial fibrillation; G47.33 Obstructive sleep apnea (adult) (pediatric); F41.9 Anxiety disorder, unspecified; F32.A Depression, unspecified; E78.5 Hyperlipidemia, unspecified; E03.9 Hypothyroidism, unspecified; G89.4 Chronic pain syndrome; Z86.19 Personal history of other infectious and parasitic diseases; Z86.74 Personal history of sudden cardiac arrest; Z85.3 Personal history of malignant neoplasm of breast; Z90.89 Acquired absence of other organs; Z95.0 Presence of cardiac pacemaker; Z98.890 Other specified postprocedural states; Z87.891 Personal history of nicotine dependence; Z88.0 Allergy status to penicillin; Z88.2 Allergy status to sulfonamides; Z88.8 Allergy status to other drugs, medicaments and biological substances; Z79.899 Other long term (current) drug therapy; Z79.890 Hormone replacement therapy; Z79.01 Long term (current) use of anticoagulants; Z79.51 Long term (current) use of inhaled steroids; Z79.82 Long term (current) use of aspirin; Z79.02 Long term (current) use of antithrombotics/antiplatelets; Z79.84 Long term (current) use of oral hypoglycemic drugs
CPT/HCPCS: 0528U; 36415; 80053; 80069; 80202; 82947; 83605; 83735; 83880; 84145; 85025; 85027; 87040; 87070; 87205; 87449; 93005; 93010; 94640; 94664; 94762; 97116; 97162; 97530; 99285; A9270; J0692; J2405; J2919; J3010; J3373; J7030; J7050; J7512

== ENCOUNTER 2025-09-06 13:49 | Inpatient (IN) | payer OTHER | END 2025-09-08 13:03 | disposition home health service (06) | DRG 682 | LOC: ER 13:49 → ERHOLD 18:07 → MEDS 20:25 | PROVIDERS: ADMIT Student in an Organized Health Care Education/Training Program | DX: N17.9 Acute kidney failure, unspecified (principal); G92.8 Other toxic encephalopathy; E87.1 Hypo-osmolality and hyponatremia; J96.11 Chronic respiratory failure with hypoxia; I50.32 Chronic diastolic (congestive) heart failure; I13.0 Hypertensive heart and chronic kidney disease with heart failure and stage 1 through stage 4 chronic kidney disease, or unspecified chronic kidney disease; T50.915A Adverse effect of multiple unspecified drugs, medicaments and biological substances, initial encounter; K59.00 Constipation, unspecified; I25.10 Atherosclerotic heart disease of native coronary artery without angina pectoris; D72.829 Elevated white blood cell count, unspecified; I95.9 Hypotension, unspecified; J43.9 Emphysema, unspecified; N18.9 Chronic kidney disease, unspecified; E11.22 Type 2 diabetes mellitus with diabetic chronic kidney disease; M10.9 Gout, unspecified; M19.90 Unspecified osteoarthritis, unspecified site; M79.7 Fibromyalgia; E11.65 Type 2 diabetes mellitus with hyperglycemia; I48.0 Paroxysmal atrial fibrillation; G89.4 Chronic pain syndrome; I27.20 Pulmonary hypertension, unspecified; K21.9 Gastro-esophageal reflux disease without esophagitis; G47.33 Obstructive sleep apnea (adult) (pediatric); E03.9 Hypothyroidism, unspecified; F32.A Depression, unspecified; F41.9 Anxiety disorder, unspecified; E86.1 Hypovolemia; E78.5 Hyperlipidemia, unspecified; Z91.81 History of falling; Z79.01 Long term (current) use of anticoagulants; Z88.8 Allergy status to other drugs, medicaments and biological substances; Z88.2 Allergy status to sulfonamides; Z88.0 Allergy status to penicillin; Z88.1 Allergy status to other antibiotic agents; Z99.81 Dependence on supplemental oxygen; Z79.891 Long term (current) use of opiate analgesic; Z79.52 Long term (current) use of systemic steroids; I25.2 Old myocardial infarction; Z85.3 Personal history of malignant neoplasm of breast; Z79.811 Long term (current) use of aromatase inhibitors; Z87.891 Personal history of nicotine dependence; Z86.14 Personal history of Methicillin resistant Staphylococcus aureus infection; Z79.890 Hormone replacement therapy ==